=== PATIENT | male | born 1930 | race Caucasian/White ===

== ENCOUNTER 2017-01-27 09:59 | Inpatient (IN) ==
--- NOTE | 2017-01-27 10:06 | Emergency Department Note ---
Disposition Clinical Impression: Hypoxia, NSTEMI (non-ST elevated myocardial infarction), Pleural effusion CHF (congestive heart failure) Qualifiers: Congestive heart failure type: unspecified congestive heart failure type Congestive heart failure chronicity: acute Qualified Code(s): I50.9 - Heart failure, unspecified Disposition: Admitted As Inpatient Condition: Fair SOB HPI - General Chief Complaint: ED Shortness of Breath/Dyspnea Stated Complaint: RODNEY, HTN Time Seen by Provider: 01/27/17 10:03 Source: patient Mode of arrival: ambulatory Limitations: no limitations Nursing Notes Reviewed: Yes Vital Signs Reviewed: Yes - History of Present Illness Patient presents for evaluation shortness of breath. Onset one week ago. Progressively worsening nature. Worse with walking. Worse lying down. Patient has some associated chest pain he describes is in the center of his chest. Nothing makes it better or worse. No radiation of pain. Patient states he has seen his kidney specialist and they told him he had fluid on his lungs. Patient does have rales bilaterally along with associated +1 pitting edema to the knee. Patient has a history of bypass greater than 8 years ago with no recent follow-up or evaluation of cardiac status. Aortic valve replacement was performed several years ago and at this time a pacemaker was placed prior to surgery. - Related Data Home Medications Medication Instructions Recorded Confirmed Aspirin 81 mg PO DAILY 11/04/14 01/27/17 Atorvastatin [Lipitor] 40 mg PO HS 11/04/14 01/27/17 Cholecalciferol (Vitamin D3) 1,000 unit PO DAILY 11/04/14 01/27/17 [Vitamin D3] Isosorbide MONOnitrate (24 HR) 30 mg PO DAILY 11/04/14 01/27/17 [Imdur] Metoprolol XL (24 HR) Succ [Toprol 100 mg PO DAILY 11/04/14 01/27/17 XL] NIFEdipine [Nifedical Xl] 60 mg PO DAILY 11/04/14 01/27/17 Lactobacillus Acidophilus 1 each PO DAILY 10/24/15 01/27/17 [Acidophilus] Furosemide [Lasix] 20 mg PO DAILY 01/27/17 01/27/17 Lisinopril [Zestril] 10 mg PO DAILY 01/27/17 01/27/17 Sertraline [Zoloft] 25 mg PO DAILY 01/27/17 01/27/17 Tamsulosin [Flomax] 0.4 mg PO DAILY 01/27/17 01/27/17 Warfarin [Coumadin] 1.25 mg PO MOTUWEFRSA 01/27/17 01/27/17 Warfarin [Coumadin] 2.5 mg PO SUTH 01/27/17 01/27/17 traZODone [TraZODone] 50 mg PO HS 01/27/17 01/27/17 Previous Rx's Medication Instructions Recorded Acetaminophen [Tylenol] 500 mg PO Q6HR PRN #10 tablet 06/14/16 Allergies Allergy/AdvReac Type Severity Reaction Status Date / Time No Known Allergies Allergy Unverified 10/04/16 10:10 Review of Systems: Constitutional: No fever Vision: No blurred vision ENT: No rhinorrhea Respiratory: Shortness of breath without productive cough Cardiac: Chest pain Allergic: No allergies : No blood in urine GI: No blood in stool Hematologic: No bruising Dermatologic: No skin rash Musculoskeletal: No pain in the extremities Neuro: No numbness of the extremities Past Medical History - Past Medical History Medical history: Reports: non-contributory Surgical history: Reports: cholecystectomy Psychiatric history: Reports: no psych history - Social History Smoking Status: Never smoker Smokeless Tobacco Status: No Alcohol use: Reports: none Drug use: Reports: none Physical Exam General: Well appearing, nontoxic, no acute distress Head: Normocephalic Atraumatic Eyes: PERRL, EOMI ENT: Airway patent, no stridor Neck: supple, no meningismus Chest: Rales bilaterally worse the bases Cardiac: Regular rhythm, no murmurs, rubs or gallops Abdomen: soft, nontender, nondistended; no guarding, rebound, or tenderness to percussion Musculoskeletal: Calves symmetric, +1 pitting edema from ankles to the knee bilaterally. nontender, no palpable cord Skin: No rash, normal skin tone Neuro: Alert and Oriented to person, place, and time; No focal deficit, CN 2-12 symmetric and intact Course - Reevaluation(s) Reevaluation #1: Troponin of 0.16 and BNP elevated greater than 2000. Patient's chest pain improved from 7-3 with nitroglycerin. Patient will be placed on nitroglycerin drip as well as a heparin drip. He had a echo scheduled for later today at 7 PM. This can be preformed from the floor or other arrangments may be made. Reevaluation #2: Discussed over the phone with the daughter who is in [place]. She has been updated of his status. - Consultations Consultation #1: Discussed with hospitalist, Dr. Rogers, patient accepted for admission. Vital Signs Temperature 98 F 01/27/17 10:02 Pulse Rate 94 01/27/17 10:02 Respiratory Rate 18 01/27/17 10:02 Blood Pressure 191/131 01/27/17 10:02 O2 Sat by Pulse Oximetry 92 01/27/17 10:02 Temperature 97.4 F L 01/27/17 19:17 Pulse Rate 98 01/27/17 19:17 Respiratory Rate 17 01/27/17 19:17 Blood Pressure 148/80 01/27/17 19:17 O2 Sat by Pulse Oximetry 94 01/27/17 19:17 Oxygen Delivery Oxygen Delivery Nasal Cannula Shortness of Breath/Dyspnea - Medical Records Medical records reviewed: Yes I reviewed the patient's medical records. - Lab Data Lab results reviewed: Yes I reviewed the patient's lab results. Result diagrams: 01/27/17 10:20 01/27/17 10:20 Lab Results 01/27/17 01/27/17 01/27/17 Range/Units 10:20 10:20 10:20 WBC 7.9 (4.3-11.1) K/mcL RBC 4.40 (4.19-5.50) M/mcL Hgb 12.5 L (12.9-16.9) g/dL Hct 38.9 (37.5-50.1) % MCV 88.4 (83.0-100.0) fL MCH 28.4 (28.0-33.3) pg MCHC 32.1 (31.6-35.5) g/dL RDW 15.0 H (11.5-14.5) % Plt Count 241 (140-400) K/mcL MPV 10.0 (9.4-12.4) fL Immature Gran % 0.3 (0-4) % Seg Neutrophils % 82.8 % Lymphocytes % 10.5 % Monocytes % 5.6 % Eosinophils % 0.5 % Basophils % 0.3 % Neutrophils # 6.5 (1.6-8.9) K/mcL Lymphocytes # 0.8 (0.6-4.6) K/mcL Monocytes # 0.4 (0.0-1.3) K/mcL Eosinophils # 0.0 (0.0-0.6) K/mcL Basophils # 0.0 (0.0-0.2) K/mcL PT 29.0 H (9.4-12.1) Seconds INR 2.6 APTT 37.2 H (26.0-36.0) Seconds Sodium 144 (136-145) mEq/L Potassium 3.2 L (3.5-5.1) mEq/L Chloride 106 (98-107) mEq/L Carbon Dioxide 26 (23-29) mEq/L BUN 24 H (8-23) mg/dL Creatinine 1.50 H (0.70-1.30) mg/dL Est GFR ( Amer) 54 L (> 60) Est GFR (Non-Af Amer) 44 L (> 60) BUN/Creatinine Ratio 16 (6-26) Glucose 101 (70-105) mg/dL Calculated Osmolality 302 H (280-300) Calcium 9.4 (8.6-10.3) mg/dL Troponin I (< 0.04) ng/mL B-Natriuretic Peptide (Less than 100) pg/mL 01/27/17 01/27/17 Range/Units 10:20 10:20 WBC (4.3-11.1) K/mcL RBC (4.19-5.50) M/mcL Hgb (12.9-16.9) g/dL Hct (37.5-50.1) % MCV (83.0-100.0) fL MCH (28.0-33.3) pg MCHC (31.6-35.5) g/dL RDW (11.5-14.5) % Plt Count (140-400) K/mcL MPV (9.4-12.4) fL Immature Gran % (0-4) % Seg Neutrophils % % Lymphocytes % % Monocytes % % Eosinophils % % Basophils % % Neutrophils # (1.6-8.9) K/mcL Lymphocytes # (0.6-4.6) K/mcL Monocytes # (0.0-1.3) K/mcL Eosinophils # (0.0-0.6) K/mcL Basophils # (0.0-0.2) K/mcL PT (9.4-12.1) Seconds INR APTT (26.0-36.0) Seconds Sodium (136-145) mEq/L Potassium (3.5-5.1) mEq/L Chloride (98-107) mEq/L Carbon Dioxide (23-29) mEq/L BUN (8-23) mg/dL Creatinine (0.70-1.30) mg/dL Est GFR ( Amer) (> 60) Est GFR (Non-Af Amer) (> 60) BUN/Creatinine Ratio (6-26) Glucose (70-105) mg/dL Calculated Osmolality (280-300) Calcium (8.6-10.3) mg/dL Troponin I 0.16 H* (< 0.04) ng/mL B-Natriuretic Peptide 2796 H (Less than 100) pg/mL - Radiology Data Radiology results reviewed: Yes I reviewed the patient's radiology results. - EKG Data EKG attestation: Yes I reviewed and interpreted this EKG. EKG results narrative: EKG shows ventricularly paced rhythm ventricular rate of 97. QRS 184. QTC 5- 3. Elevations in the anterior leads are 1-2 mm in V2 V3 and V4, consistent with Sgarbossa criteria. Attestation Statement - Attestation Attestation: I examined this patient and my medical decision-making was reviewed with the Resident Physician. I agree with the documented findings, disposition and treatment plan as described except to the extent set forth below. Findings consistent with dyspnea. Suspect underlying heart failure. Will start nitroglycerin infusion. Plan admit for further evaluation. I spent greater than 35 minutes of critical care time resuscitating this acutely ill patient suffering from dyspnea requiring nitroglycerin infusion. This was excluding billable procedure.
[2017-01-27] MEDS: Nitroglycerin 0.4 MG TAB.SUBL SL PRN ×3 (10:26→10:36)
[2017-01-27 10:37] LABS: Basophils % 0.3 %; Eosinophils % 0.5 %; Hematocrit 38.9 % (37.5-50.1); Hemoglobin 12.5 g/dL (12.9-16.9); Immature Granulocytes % 0.3 % (0-4); Lymphocytes # 0.8 K/mcL (0.6-4.6); Lymphocytes % 10.5 %; Mean Corpuscular HGB Conc 32.1 g/dL (31.6-35.5); Mean Corpuscular Hemoglobin 28.4 pg (28.0-33.3); Mean Corpuscular Volume 88.4 fL (83.0-100.0); Monocytes # 0.4 K/mcL (0.0-1.3); Monocytes % 5.6 %; Neutrophils # 6.5 K/mcL (1.6-8.9); Platelet Count 241 K/mcL (140-400); Segmented Neutrophils % 82.8 %
[2017-01-27 10:44] LABS: INR 2.6
[2017-01-27 10:52] LABS: Calcium 9.4 mg/dL (8.6-10.3); Potassium 3.2 mEq/L (3.5-5.1)
[2017-01-27] MEDS ORDERED: Aspirin 81 MG TAB.CHEW PO STA (11:01)
[2017-01-27] MEDS ORDERED: *HR* Heparin 5,000 UNIT/ML VIAL IVP ONE (11:04)
[2017-01-27] MEDS ORDERED: *HR* Heparin 5,000 UNIT/ML VIAL IVP PRN ×2 (11:04)
[2017-01-27] MEDS ORDERED: Heparin 25,000 UNIT/500 ML D5W 25,000 UNIT/500 ML BAG IVC SCH (11:15)
[2017-01-27] MEDS ORDERED: Nitroglycerin 25 MG/250 ML INFUS..BTL IVC SCH (11:15)
[2017-01-27 11:21] LABS: Activated Partial Thrombo Time 37.2 Seconds (26.0-36.0)
[2017-01-27] MEDS ORDERED: Naloxone 0.4 MG/ML INJ IVP PRN (15:09)
[2017-01-27] MEDS ORDERED: *HR* Morphine 2 MG/ML SYRINGE IVP PRN (15:09)
[2017-01-27] MEDS ORDERED: *HR* HYDROcodone/Acet 5/325 mg TABLET PO PRN (15:09)
[2017-01-27] MEDS ORDERED: Ipratropium/Albuterol Neb 3 ML IH PRN (15:27)
--- NOTE | 2017-01-27 15:31 | Internal Med History&Physical ---
<NylacuatetreeJavier hardy - Last Filed: 01/27/17 18:50> Date of Encounter: 01/27/17 Time of Encounter: 14:00 Assessment and Plan (1) Chest pain Current visit: Yes Status: Acute Acute chest pain that pt. describes as intermittent for the past week and accompanied by SOB/dyspnea. Pt. describes pain as centralized in chest w/o radiation or alleviating/aggravating factors. Pt. has hx of triple bypass and pacemaker/AICD placement at [place]. Initial troponin 0.16. Will trend x2. Echocardiogram ordered. Continuous cardiac telemetry. Aspirin therapy. Lipitor 80 mg now. Nitroglycerin PRN. Pt. placed on heparin drip in ED which has been discontinued d/t pts. report of melanotic stool yesterday. Continue Coumadin w/ pharmacy dosing. Pt. discussed w/Dr. Rogers who agrees w/plan of care. Pt. is at high risk for cardiac event based on troponin of 0.16, chest pain, and current acute exacerbation of CHF as well as risk factors. Inpatient. Qualifiers: Chest pain type: other chest pain Qualified Code(s): R07.89 - Other chest pain; R07.8 - Other chest pain (2) Acute exacerbation of CHF (congestive heart failure) Current visit: Yes Status: Acute Acute exacerbation of CHF w/BNP of 2796 on admission. Pt. reports intermittent pedal edema, SOB/dyspnea, and orthopnea. Was recently placed on lasix by PCP. Will hold PO lasix and administer IVP lasix 40 mg BID. Echocardiogram ordered. Continuous cardiac telemetry. Supplemental O2 w/titration and SpO2 monitoring PRN. DuoNebs Q6 PRN. Monitor I&O and daily weight. Cardiac diet w/1.2L daily fluid restriction. Qualifiers: Congestive heart failure type: unspecified congestive heart failure type Qualified Code(s): I50.9 - Heart failure, unspecified (3) Abnormal hemoglobin (Hgb) Current visit: Yes Status: Acute Acutely abnormal Hgb of 12.5 on admission today. Pt. reports melanotic stool once yesterday. Fecal hemoccult ordered. Monitor H/H in a.m. labs. (4) Stage III chronic kidney disease Current visit: Yes Status: Chronic Hx of CKD, stage 3 with current GFR of 44 and creatinine of 1.50. Will use IV fluids judiciously, especially w/current acute exacerbation of CHF, and avoid nephrotoxins. (5) HTN (hypertension) Current visit: Yes Status: Chronic Hx of chronic HTN. Monitor pt. and VS. Continue patient's Imdur, lisinopril, metoprolol, and nifedipine. Qualifiers: Hypertension type: essential hypertension Qualified Code(s): I10 - Essential (primary) hypertension (6) HLD (hyperlipidemia) Current visit: Yes Status: Chronic Hx of chronic HLD. Lipid panel in a.m. labs. Continue pts. Lipitor. Qualifiers: Hyperlipidemia type: pure hypercholesterolemia Qualified Code(s): E78.00 - Pure hypercholesterolemia, unspecified; E78.0 - Pure hypercholesterolemia (7) Pacemaker Current visit: Yes Status: Chronic Hx of pacemaker/AICD placement. Stable. (8) Depression Current visit: Yes Status: Chronic Hx of chronic depression. Continue pts. Zoloft. Qualifiers: Depression Type: unspecified Qualified Code(s): F32.9 - Major depressive disorder, single episode, unspecified (9) CAD (coronary artery disease) Current visit: Yes Status: Chronic Hx of chronic CAD with triple bypass and pacemaker/AICD placement. Continuous cardiac telemetry. Echocardiogram ordered. Will continue patient's Imdur, lisinopril, metoprolol, nifedipine, Lipitor, aspirin therapy, and Coumadin with pharmacy dosing. Qualifiers: Coronary Disease-Associated Artery/Lesion type: [place] artery [place] vs. transplanted heart: [place] heart Associated angina: angina presence unspecified Qualified Code(s): I25.10 - Atherosclerotic heart disease of [place] coronary artery without angina pectoris (10) DVT prophylaxis Current visit: Yes Status: Acute Coumadin w/pharmacy dosing for DVT prophylaxis. Monitor pt. for signs of bleeding. Pt. reports black stool once yesterday. Fecal hemoccult ordered. Internal Medicine - H&P: HPI Chief complaint: Chest pain/SOB Admitted From: Emergency Dept Plans for Post Hospital Care: Home History of present illness: Mr. tS is a 86 year old male with medical hx of HTN, HLD, depression, CHF, and hx of pacemaker on Coumadin presents from the ED with chief complaint of chest pain and shortness of breath that began 1 week ago accompanied by nausea and diarrhea. Patient reports black stool yesterday. Patient describes chest pain as centralized and chest, without alleviating or aggravating factors, and without radiation. He reports Dr. Marsh informed him that he has fluid on his lungs and he reports intermittent pedal edema accompanied by shortness of breath. Patient reports some disequilibrium w/ambulation but denies recent illness, fever, chills, vomiting, headache, changes in vision, chest pain, palpitations, abdominal pain, constipation, numbness, tingling, dizziness, lightheadedness, pre-syncope, or syncope. Past Med Surg Social Fam HX - Past Medical History Source: patient, old records reviewed Medical history: hyperlipidemia, hypertension, other (BPH) Psychiatric history: depression - Past Surgical History Surgical History: cholecystectomy, coronary bypass (CABG) (Triple), pacemaker/ AICD - Social History Smoking Status: Never smoker Smokeless Tobacco Status: No Alcohol use: none Drug use: none Current living situation: Assisted Living Activity Level: Independent ambulation Recent Out of Country Travel Within the Last 8 Weeks: No Exposure or Possible Exposure to Illness During Travel: No - Family History Mother Adopted: No Race: Family Member Ethnicity: Non- Living Status: Age at : 72 Cause of : Lung cancer Hx Family Cardiac Disorders: Yes Hx Family Cancer: Yes (Lung) Hx Family Endocrine Disorder: Yes Father Race: Family Member Ethnicity: Non- Living Status: Age at : 38 Cause of : Blood clot following surgery Hx Family Cardiac Disorders: Yes (DVT) Sister Race: Family Member Ethnicity: Non- Living Status: Still Living Hx Family Cardiac Disorders: Yes (Stroke) Internal Medicine - H&P: Meds Aspirin 81 mg PO DAILY 11/04/14 [History] Atorvastatin [Lipitor] 40 mg PO HS 11/04/14 [History] Cholecalciferol (Vitamin D3) [Vitamin D3] 1,000 unit PO DAILY 11/04/14 [History] Isosorbide MONOnitrate (24 HR) [Imdur] 30 mg PO DAILY 11/04/14 [History] Metoprolol XL (24 HR) Succ [Toprol XL] 100 mg PO DAILY 11/04/14 [History] NIFEdipine [Nifedical Xl] 60 mg PO DAILY 11/04/14 [History] Lactobacillus Acidophilus [Acidophilus] 1 each PO DAILY 10/24/15 [History] Acetaminophen [Tylenol] 500 mg PO Q6HR PRN #10 tablet 06/14/16 [Rx] Furosemide [Lasix] 20 mg PO DAILY 01/27/17 [History] Lisinopril [Zestril] 10 mg PO DAILY 01/27/17 [History] Sertraline [Zoloft] 25 mg PO DAILY 01/27/17 [History] Tamsulosin [Flomax] 0.4 mg PO DAILY 01/27/17 [History] Warfarin [Coumadin] 1.25 mg PO MOTUWEFRSA 01/27/17 [History] Warfarin [Coumadin] 2.5 mg PO SUTH 01/27/17 [History] traZODone [TraZODone] 50 mg PO HS 01/27/17 [History] 3 Allergy/AdvReac Type Severity Reaction Status Date / Time No Known Allergies Allergy Unverified 10/04/16 10:10 All Systems PM: A 10-system review of systems was performed and is negative for pertinent findings except as documented above in the HPI. - Constitutional Constitutional: no chills, no fever(s), no night sweats - EENT Eyes: no change in vision, no discharge, no pain, no photophobia Ears: no ear discharge, no ear pain, no tinnitus Nose, mouth and throat: no dysphagia, no nasal discharge, no neck pain, no sore throat - Breasts Breasts: as per HPI - Cardiovascular Cardiovascular ROS IM: as per HPI, chest pain, dyspnea, dyspnea on exertion, edema, orthopnea, no diaphoresis, no lightheadedness, no palpitations, no syncope - Respiratory Respiratory: as per HPI, dyspnea, dyspnea on exertion - Gastrointestinal Gastrointestinal: as per HPI, diarrhea, nausea, no abdominal pain, no hematemesis, no hematochezia, no melena, no vomiting - Genitourinary Genitourinary ROS male: as per HPI, difficulty urinating - Musculoskeletal Musculoskeletal ROS IM: no numbness, no tingling - Integumentary Integumentary IM: no rash, no unusual bruising - Neurological Neurological ROS: as per HPI, disequilibrium, no confusion, no convulsions, no focal weakness, no numbness, no tingling, no tremor(s) - Psychiatric Psychiatric: as per HPI - Endocrine Endocrine IM: as per HPI - Hematologic/Lymphatic Hematologic/Lymphatic: no easy bruising - Allergic/Immunologic Allergic/Immunologic: as per HPI - Constitutional Vitals: Temp Pulse Resp BP Pulse Ox 97.6 F 85 16 188/68 96 01/27/17 14:43 01/27/17 14:43 01/27/17 14:43 01/27/17 14:43 01/27/17 14:43 General appearance: Present: cooperative, A&O X 3, pleasant, no acute distress, answers questions appropriately - Head Head exam: Present: atraumatic, normal inspection, normocephalic - Eye Eye exam: Present: PERRL, conjuntiva pink, sclera anicteric Pupils: Present: PERRL - ENT ENT exam: Present: normal exam, normal external ear exam - Neck Neck exam general surgery: Present: normal inspection, supple, trachea midline. Absent: lymphadenopathy - Respiratory Respiratory exam: Present: accessory muscle use, decreased breath sounds - Cardiovascular Cardiovascular exam: Present: RRR, +S1, +S2. Absent: diastolic murmur, gallop, rubs, systolic murmur - GI/Abdominal GI/Abdominal exam: Present: normal bowel sounds, soft, no peritoneal signs. Absent: distended, tenderness - Rectal Rectal exam: Present: deferred - Additional comments: exam deferred. - Extremities Exam Extremities exam: Present: pedal edema (1+ pitting bilaterally in LEs), warm, radial pulses palpable and symmetrical. Absent: calf tenderness, cyanotic - Back Exam Back exam: Present: normal inspection - Neurological Exam Neurological exam: Present: alert, CN II-XII intact, oriented X3, no focal deficits. Absent: pronater drift, facial droop, speech deficit - Psychiatric Psychiatric exam: Present: normal affect, normal mood - Skin Skin exam: Present: dry, intact Internal Med - H&P Results - Labs CBC & Chem 7: 01/27/17 10:20 01/27/17 10:20 - EKG Data Prior EKG available for review: no EKG comments: 01/27/17 15:49 EKG dated 01/27/17 shows ventricularly paced rhythm with ventricular rate of 97 , QRS was 84, QTC 53, elevations in the anterior leads are 2 mm in V2, V3, and V4 consistent w/Sgarbossa criteria. - Diagnostic Studies Chest x-ray Additional comments: Impressions Chest X-Ray 01/27/17 10:03 IMPRESSION: Interval worsening in small right pleural effusion. Unchanged small to moderate left pleural effusion. Persistent bibasilar pulmonary opacities. Continued radiographic follow-up as indicated. Persistently enlarged cardiomediastinal silhouette. D/ / Emerson Kenyon MD / Emerson Kenyon MD Interpreting Provider: Emerson Kenyon MD <David Rogers P - Last Filed: 01/28/17 13:04> Date of Encounter: 01/28/17 Assessment and Plan (1) Acute exacerbation of CHF (congestive heart failure) Current visit: Yes Status: Acute Qualifiers: Congestive heart failure type: unspecified congestive heart failure type Qualified Code(s): I50.9 - Heart failure, unspecified (2) HTN (hypertension) Current visit: Yes Status: Chronic Qualifiers: Hypertension type: essential hypertension Qualified Code(s): I10 - Essential (primary) hypertension (3) Stage III chronic kidney disease Current visit: Yes Status: Chronic (4) Pacemaker Current visit: Yes Status: Chronic (5) DVT prophylaxis Current visit: Yes Status: Acute Internal Medicine - H&P: HPI History of present illness: Mr. St is a 86 year old male All Systems PM: A 10-system review of systems was performed and is negative for pertinent findings except as documented above in the HPI. - Constitutional Vitals: Temp Pulse Resp BP Pulse Ox 97.9 F 67 18 164/83 92 01/28/17 11:20 01/28/17 11:20 01/28/17 11:20 01/28/17 11:20 01/28/17 11:20 Internal Med - H&P Results - Labs CBC & Chem 7: 01/28/17 03:54 01/28/17 03:54 Labs: Short CBC 01/28/17 Range/Units 03:54 WBC 7.6 (4.3-11.1) K/mcL Hgb 11.3 L (12.9-16.9) g/dL Hct 35.4 L (37.5-50.1) % Plt Count 240 (140-400) K/mcL Neutrophils # 6.2 (1.6-8.9) K/mcL BMP 01/28/17 03:54 Sodium 143 Potassium 3.0 L Chloride 107 Carbon Dioxide 27 BUN 26 H Creatinine 1.47 H Glucose 100 Calcium 8.7 Cardiac Enzymes 01/27/17 01/27/17 Range/Units 16:55 22:23 Troponin I 0.15 H* 0.16 H* (< 0.04) ng/mL Liver Function 01/28/17 Range/Units 03:54 Total Bilirubin 1.1 H (0.3-1.0) mg/dL AST 21 (13-39) Units/L ALT 17 (7-52) Units/L Alkaline Phosphatase 98 (34-104) Units/L Albumin 3.4 L (3.5-5.7) g/dL - Attending Attestation I examined this patient and my medical decision-making was reviewed with the Resident Physician/BULK CLERK. I agree with the documented findings, disposition and treatment plan as described except to the extent set forth below. I examined this patient independently I agree with the management and plan as described by nurse practitioner Javier.
[2017-01-27] MEDS ORDERED: Warfarin perPT PO PRN (18:00)
[2017-01-27] MEDS ORDERED: *HR* Warfarin 2.5 MG TABLET PO SCH (18:00)
--- NOTE | 2017-01-27 18:38 | Electrocardiograph Report ---
[place] [id number] Test Date: 2017-01-27 Pat Name: Javier St Department: 103 Room: 2A Gender: M [employer] Rep[employer]: CLARK : 1930 Requested By: Aleksey Stevens Order Number: [id number] Reading MD: Curtis Leonard DO Measurements Intervals [place] Rate: 97 P: DE: 0 QRS: -70 QRSD: 184 T: 105 QT: 469 QTc: 523 Interpretive Statements ELECTRONIC VENTRICULAR PACEMAKER ABNORMAL RHYTHM ECG Electronically Signed On 01-27-2017 18:37:01 EST by Curtis Leonard DO
[2017-01-27] MEDS: traZODone 50 MG TABLET PO SCH (20:56)
[2017-01-27] MEDS: Furosemide 40 MG/4 ML VIAL IVP SCH (20:56)
[2017-01-28 04:56] LABS: Albumin 3.4 g/dL (3.5-5.7); Albumin/Globulin Ratio 1.3 (1.1-2.2); Bilirubin,Total 1.1 mg/dL (0.3-1.0); Calcium 8.7 mg/dL (8.6-10.3); Chol/HDL Ratio 2.9 (0-4.9); Globulin 2.7 g/dL (2.4-3.5); Magnesium 1.6 mg/dL (1.6-2.6); Total Protein 6.1 g/dL (6.4-8.9)
[2017-01-28 05:00] LABS: INR 2.9; Prothrombin Time 32.5 Seconds (9.4-12.1)
[2017-01-28 05:02] LABS: Basophils % 0.4 %; Eosinophils # 0.1 K/mcL (0.0-0.6); Eosinophils % 0.9 %; Hematocrit 35.4 % (37.5-50.1); Hemoglobin 11.3 g/dL (12.9-16.9); Immature Granulocytes % 0.3 % (0-4); Lymphocytes # 0.8 K/mcL (0.6-4.6); Lymphocytes % 10.1 %; Mean Corpuscular HGB Conc 31.9 g/dL (31.6-35.5); Mean Corpuscular Hemoglobin 28.3 pg (28.0-33.3); Mean Corpuscular Volume 88.5 fL (83.0-100.0); Mean Platelet Volume 10.3 fL (9.4-12.4); Monocytes # 0.5 K/mcL (0.0-1.3); Monocytes % 6.8 %; Neutrophils # 6.2 K/mcL (1.6-8.9); Platelet Count 240 K/mcL (140-400); Red Cell Distribution Width 14.8 % (11.5-14.5); Segmented Neutrophils % 81.5 %
[2017-01-28 05:03] LABS: Activated Partial Thrombo Time 34.6 Seconds (26.0-36.0)
[2017-01-28] MEDS: Ondansetron 4 MG/2 ML VIAL IVP PRN ×2 (08:11→14:33)
[2017-01-28] MEDS: Metoprolol XL (24 HR) Succ 50 MG TAB.ER.24H PO SCH (08:12)
[2017-01-28] MEDS: NIFEdipine XL (24 HR) 60 MG TAB.ER.24 PO SCH (08:12)
[2017-01-28] MEDS: Cholecalciferol (D-3) 1,000 UNIT TABLET PO SCH (08:12)
[2017-01-28] MEDS: Furosemide 40 MG/4 ML VIAL IVP SCH ×3 (08:12→16:34)
[2017-01-28] MEDS: Lactobacillus 1 EACH CAP.SPRINK PO SCH (08:12)
[2017-01-28] MEDS: Aspirin Enteric Coated 81 MG Tablet PO SCH (08:12)
[2017-01-28] MEDS: Isosorbide MONOnitrate (24 HR) 30 MG TAB.ER.24H PO SCH (08:12)
--- NOTE | 2017-01-28 09:51 | Cardiothoracic Consult Note ---
Date of Encounter: 01/28/17 Time of Encounter: 09:45 - History of Present Illness History of present illness: Mr. St is a 86 year old male with a past medical history of hypertension, hyperlipidemia, CHF, pacemaker on Coumadin, CABG who presented to the hospital with a chief complaint of chest pain and shortness of breath of one week's duration. Patient also had accompanying nausea and diarrhea. He reported black stool. His chest pain was described as centralized without radiation, no aggravating or relieving factors. Patient reported that his food order delivery runner Dr. Marsh told him that he has fluid in his lungs. Patient has pedal edema on presentation. Patient's shortness of breath is exacerbated by walking and lying down. Patient had rales bilaterally on physical exam. Patient has an extensive cardiac history with aortic valve replacement, pacemaker placement, CABG, and catheterization. Patient's blood pressure was elevated on presentation at 191/131. His pulse was 94 bpm. Chest x-ray was performed and demonstrated interval worsening small right-sided pleural effusion. Unchanged small to moderate left-sided pleural effusion. Persistent bibasilar pulmonary bases. Persistently enlarged cardiomediastinal silhouette. Pulmonary for examination, patient was found to have an elevated troponin 0.16. Troponins were trended and are as follows: 0.16 , 0.15, 0.16. EKG demonstrated the presence of an electronic ventricular pacemaker. Patient was started on heparin and nitroglycerin drip. Echo has been ordered. Past Med Surg Social Fam HX - Past Medical History Medical history: non-contributory Psychiatric history: no psych history - Past Surgical History Surgical History: cholecystectomy - Social History Smoking Status: Never smoker Smokeless Tobacco Status: No Alcohol use: none Drug use: none - Family History Father Race: Family Member Ethnicity: Non- Living Status: Age at : 38 Cause of : Blood clot following surgery Hx Family Cardiac Disorders: Yes (DVT) Sister Race: Family Member Ethnicity: Non- Living Status: Still Living Hx Family Cardiac Disorders: Yes (Stroke) Mother Adopted: No Race: Family Member Ethnicity: Non- Living Status: Age at : 72 Cause of : Lung cancer Hx Family Cardiac Disorders: Yes Hx Family Respiratory Disorders: No Hx Family Cancer: Yes (Lung) Hx Family GI Disorders: No Hx Family Endocrine Disorder: Yes Hx Family Neuromuscular Disorders: No Hx Family Neurologic Disorders: No Hx Family HEENT Disorders: No Hx Family Autoimmune Disorders: No Medications and Allergies Aspirin 81 mg PO DAILY 11/04/14 [History] Atorvastatin [Lipitor] 40 mg PO HS 11/04/14 [History] Cholecalciferol (Vitamin D3) [Vitamin D3] 1,000 unit PO DAILY 11/04/14 [History] Isosorbide MONOnitrate (24 HR) [Imdur] 30 mg PO DAILY 11/04/14 [History] Metoprolol XL (24 HR) Succ [Toprol XL] 100 mg PO DAILY 11/04/14 [History] NIFEdipine [Nifedical Xl] 60 mg PO DAILY 11/04/14 [History] Lactobacillus Acidophilus [Acidophilus] 1 each PO DAILY 10/24/15 [History] Acetaminophen [Tylenol] 500 mg PO Q6HR PRN #10 tablet 06/14/16 [Rx] Furosemide [Lasix] 20 mg PO DAILY 01/27/17 [History] Lisinopril [Zestril] 10 mg PO DAILY 01/27/17 [History] Sertraline [Zoloft] 25 mg PO DAILY 01/27/17 [History] Tamsulosin [Flomax] 0.4 mg PO DAILY 01/27/17 [History] Warfarin [Coumadin] 1.25 mg PO MOTUWEFRSA 01/27/17 [History] Warfarin [Coumadin] 2.5 mg PO SUTH 01/27/17 [History] traZODone [TraZODone] 50 mg PO HS 01/27/17 [History] 3 Allergy/AdvReac Type Severity Reaction Status Date / Time No Known Allergies Allergy Unverified 10/04/16 10:10 All Systems Review: A 10-system review of systems was performed and is negative for pertinent findings except as documented above in the HPI. Physical Examination Vital Signs, Last 4 Hours Temp Pulse Resp BP Pulse Ox 01/28/17 07:36 97.8 F 74 18 164/77 94 Results 01/28/17 03:54 01/28/17 03:54 Lab Results, Last 24 hours 01/27/17 01/27/17 01/28/17 16:55 22:23 03:54 WBC 7.6 Hgb 11.3 L Hct 35.4 L Plt Count 240 INR APTT Sodium Potassium Chloride Carbon Dioxide BUN Creatinine Glucose Calcium Magnesium Total Bilirubin AST ALT Alkaline Phosphatase Troponin I 0.15 H* 0.16 H* 01/28/17 01/28/17 03:54 03:54 WBC Hgb Hct Plt Count INR 2.9 APTT 34.6 Sodium 143 Potassium 3.0 L Chloride 107 Carbon Dioxide 27 BUN 26 H Creatinine 1.47 H Glucose 100 Calcium 8.7 Magnesium 1.6 Total Bilirubin 1.1 H AST 21 ALT 17 Alkaline Phosphatase 98 Troponin I Consult Discharge Plan - Plan Referrals: Dagoberto Blunt MD [Primary Care Provider] -
--- NOTE | 2017-01-28 09:57 | Cardiology Consult Note ---
<Ab Lindsey - Last Filed: 01/28/17 13:22> Date of Encounter: 01/28/17 Time of Encounter: 09:45 Assessment and Plan (1) Acute exacerbation of CHF (congestive heart failure) Current Visit: Yes Status: Acute Patient has known history of CHF. Acute exacerbation of CHF w/BNP of 2796 on admission. Pt. reports intermittent pedal edema, SOB/dyspnea, and orthopnea. Was recently placed on lasix by PCP. CXR demonstrated the presence of bilateral effusions. Last ECHO performed on 10/24/14 the following: -LVEF 65%. -Moderate concentric LVH. -Moderate L ventricular diastolic dysfunction. -Moderate-severely dilated LA and RA -Severe . Peak velocity 4.3 m/s, mean gradient 45 mmHg, HELEN 0.93 cm2. -Mild AR and MR Repeat ECHO has been ordered. Plan: -IV Lasix 40 mg IV BID -Continuous cardiac telemetry -Supplemental O2 -DuoNeb every 6 when necessary -Monitor I&O/daily weight/Cardiac diet with 1.2 L daily fluid restriction. Qualifiers: Congestive heart failure type: unspecified congestive heart failure type Qualified Code(s): I50.9 - Heart failure, unspecified (2) Chest pain Current Visit: Yes Status: Acute Patient initially presented to the hospital with chest pain. Centralized, accompanied by shortness of breath and dyspnea, no radiation, no alleviating factors. hx of triple bypass and pacemaker/AICD placement at [place]. Plan: -Continuous cardiac telemetry. -Continue medical management. -Nitroglycerin 0.4 mg SL Q5 minutes PRN -Possible cardiac catheterization today; Patient's prior imaging/studies will be reviewed by industrial court magistrate Qualifiers: Chest pain type: other chest pain Qualified Code(s): R07.89 - Other chest pain; R07.8 - Other chest pain (3) Elevated troponin Current Visit: Yes Status: Acute Patient was found to have an elevated troponin level presentation. Troponins have been as follows: 0.16, 0.15, 0.16. (4) CAD (coronary artery disease) Current Visit: Yes Status: Chronic Patient has known history of coronary artery disease. Hx of chronic CAD with triple bypass and pacemaker/AICD placement. Continuous cardiac telemetry. ECHO ordered. Plan: -ASA 81 mg PO daily -Lipitor 40 mg PO HS -Lisinopril 10 mg PO daily -Metoprolol 100 mg PO daily -Nifedipine XL 24 hours 60 mg PO daily -Coumadin dosed per pharmacy Qualifiers: Coronary Disease-Associated Artery/Lesion type: seminole artery [place] vs. transplanted heart: seminole heart Associated angina: angina presence unspecified Qualified Code(s): I25.10 - Atherosclerotic heart disease of seminole coronary artery without angina pectoris Discussion w patient/family: The assessment and plan as outlined above was discussed with the patient and/or family members who expressed understanding and agreement. All questions were answered. Thank you for involving us in the care of your patient. Please call with any questions. History of Present Illness Consult date: 01/28/17 History of present illness: Mr. St is a 86 year old male with a past medical history of hypertension, hyperlipidemia, CHF, pacemaker on Coumadin, CABG who presented to the hospital with a chief complaint of chest pain and shortness of breath of one week's duration. Patient also had accompanying nausea and diarrhea. He reported black stool. His chest pain was described as centralized without radiation, no aggravating or relieving factors. Patient reported that his manager wind Dr. Marsh told him that he has fluid in his lungs. Patient has pedal edema on presentation. Patient's shortness of breath is exacerbated by walking and lying down. Patient had rales bilaterally on physical exam. Patient has an extensive cardiac history with aortic valve replacement, pacemaker placement, CABG, and catheterization. Patient's blood pressure was elevated on presentation at 191/131. His pulse was 94 bpm. Chest x-ray was performed and demonstrated interval worsening small right-sided pleural effusion. Unchanged small to moderate left-sided pleural effusion. Persistent bibasilar pulmonary bases. Persistently enlarged cardiomediastinal silhouette. Pulmonary for examination, patient was found to have an elevated troponin 0.16. Troponins were trended and are as follows: 0.16 , 0.15, 0.16. EKG demonstrated the presence of an electronic ventricular pacemaker. Patient was started on heparin and nitroglycerin drip. Echo has been ordered. Patient seen and examined at bedside this morning. Reports feeling much better. No complaints at this time. Patient may require catheterization due to elevated troponin at 0.16. Patient' s records will be reviewed by the industrial court magistrate. Past Med Surg Social Fam HX - Past Medical History Medical history: non-contributory Psychiatric history: no psych history - Past Surgical History Surgical History: cholecystectomy - Social History Smoking Status: Never smoker Smokeless Tobacco Status: No Alcohol use: none Drug use: none - Family History Father Race: Family Member Ethnicity: Non- Living Status: Age at : 38 Cause of : Blood clot following surgery Hx Family Cardiac Disorders: Yes (DVT) Sister Race: Family Member Ethnicity: Non- Living Status: Still Living Hx Family Cardiac Disorders: Yes (Stroke) Mother Adopted: No Race: Family Member Ethnicity: Non- Living Status: Age at : 72 Cause of : Lung cancer Hx Family Cardiac Disorders: Yes Hx Family Respiratory Disorders: No Hx Family Cancer: Yes (Lung) Hx Family GI Disorders: No Hx Family Endocrine Disorder: Yes Hx Family Neuromuscular Disorders: No Hx Family Neurologic Disorders: No Hx Family HEENT Disorders: No Hx Family Autoimmune Disorders: No Medications and Allergies Aspirin 81 mg PO DAILY 11/04/14 [History] Atorvastatin [Lipitor] 40 mg PO HS 11/04/14 [History] Cholecalciferol (Vitamin D3) [Vitamin D3] 1,000 unit PO DAILY 11/04/14 [History] Isosorbide MONOnitrate (24 HR) [Imdur] 30 mg PO DAILY 11/04/14 [History] Metoprolol XL (24 HR) Succ [Toprol XL] 100 mg PO DAILY 11/04/14 [History] NIFEdipine [Nifedical Xl] 60 mg PO DAILY 11/04/14 [History] Lactobacillus Acidophilus [Acidophilus] 1 each PO DAILY 10/24/15 [History] Acetaminophen [Tylenol] 500 mg PO Q6HR PRN #10 tablet 06/14/16 [Rx] Furosemide [Lasix] 20 mg PO DAILY 01/27/17 [History] Lisinopril [Zestril] 10 mg PO DAILY 01/27/17 [History] Sertraline [Zoloft] 25 mg PO DAILY 01/27/17 [History] Tamsulosin [Flomax] 0.4 mg PO DAILY 01/27/17 [History] Warfarin [Coumadin] 1.25 mg PO MOTUWEFRSA 01/27/17 [History] Warfarin [Coumadin] 2.5 mg PO SUTH 01/27/17 [History] traZODone [TraZODone] 50 mg PO HS 01/27/17 [History] 3 Allergy/AdvReac Type Severity Reaction Status Date / Time No Known Allergies Allergy Unverified 10/04/16 10:10 All Systems Review: A 10-system review of systems was performed and is negative for pertinent findings except as documented above in the HPI. - Constitutional Constitutional: no fatigue, no fever(s), no frequent falls, no lethargy - Cardiovascular Cardiovascular: no dyspnea at rest, no dyspnea on exertion, no irregular heart rhythm, no radiating jaw, neck or arm pain Physical Examination Vital Signs, Last 4 Hours Temp Pulse Resp BP Pulse Ox 01/28/17 07:36 97.8 F 74 18 164/77 94 General: Conversant, No Apparent Distress HEENT: Atraumatic, Normocephaly, Mucus Membranes Moist Neck: No JVD, Normal carotid pulses Cardiac: Reg Rate and Rhythm, Normal S1 and S2, No Murmur Lungs: Normal Breath Sounds, No Wheeze, Rales, Rhonchi Neuro: Alert and responsive, No focal deficits noted Skin: No rashes noted on visualized skin Musculoskeletal: No Chest Wall Tenderness Results 01/28/17 03:54 01/28/17 03:54 Lab Results 01/27/17 01/27/17 01/28/17 16:55 22:23 03:54 WBC 7.6 Hgb 11.3 L Hct 35.4 L Plt Count 240 INR APTT Sodium Potassium Chloride Carbon Dioxide BUN Creatinine Glucose Calcium Magnesium Total Bilirubin AST ALT Alkaline Phosphatase Troponin I 0.15 H* 0.16 H* 01/28/17 01/28/17 03:54 03:54 WBC Hgb Hct Plt Count INR 2.9 APTT 34.6 Sodium 143 Potassium 3.0 L Chloride 107 Carbon Dioxide 27 BUN 26 H Creatinine 1.47 H Glucose 100 Calcium 8.7 Magnesium 1.6 Total Bilirubin 1.1 H AST 21 ALT 17 Alkaline Phosphatase 98 Troponin I Consult Discharge Plan - Plan Referrals: Dagoberto Blunt MD [Primary Care Provider] - <Isabel Capps - Last Filed: 01/28/17 16:43> Date of Encounter: 01/28/17 - Attending Attestation I examined this patient and my medical decision-making was reviewed with the Resident Physician. I agree with the documented findings, disposition and treatment plan. Mr. St presents to the hospital with the complaint of mid epigastric discomfort, nausea, vomiting and diarrhea for 1 week. He also apparently had melanotic stool and endorses edema. Patient tells me he is been constipated and has not had a stool in several days. Medical history is significant for CAD s/p CABG, s/p TAVR, PPM. Last LHC was in October 2014 in which no intervention was warranted. Upon admission, the troponins were elevated at 0.16 , 0.15, 0.16. LVEF returned low normal to mildly reduced at 45-50%, previously 65%. Patient also reported melanotic stool - need to await further workup to decide upon whether invasive approach is appropriate. Hemoglobin is stable. Agree with IV diuresis, asa, statin, BB, ACEI. Patient is anticoagulated with Coumadin, INR 2.9 - will need to be held if an invasive approach is performed. Assessment and Plan Discussion w patient/family: The assessment and plan as outlined above was discussed with the patient and/or family members who expressed understanding and agreement. All questions were answered. Thank you for involving us in the care of your patient. Please call with any questions. History of Present Illness History of present illness: Mr. St is a 86 year old male All Systems Review: A 10-system review of systems was performed and is negative for pertinent findings except as documented above in the HPI. Results 01/28/17 03:54 01/28/17 03:54 Lab Results 01/27/17 01/27/17 01/28/17 16:55 22:23 03:54 WBC 7.6 Hgb 11.3 L Hct 35.4 L Plt Count 240 INR APTT Sodium Potassium Chloride Carbon Dioxide BUN Creatinine Glucose Calcium Magnesium Total Bilirubin AST ALT Alkaline Phosphatase Troponin I 0.15 H* 0.16 H* 01/28/17 01/28/17 03:54 03:54 WBC Hgb Hct Plt Count INR 2.9 APTT 34.6 Sodium 143 Potassium 3.0 L Chloride 107 Carbon Dioxide 27 BUN 26 H Creatinine 1.47 H Glucose 100 Calcium 8.7 Magnesium 1.6 Total Bilirubin 1.1 H AST 21 ALT 17 Alkaline Phosphatase 98 Troponin I
--- NOTE | 2017-01-28 12:41 | Internal Med Progress Note ---
Date of Encounter: 01/28/17 Time of Encounter: 12:38 - Assessment and plan (1) Acute exacerbation of CHF (congestive heart failure) Current Visit: Yes Status: Acute Assessment and plan: 86-year-old male Admitted with chest pain/shortness of breath/pedal edema. Known to have a aortic stenosis. Noted that drop in ejection fraction as compared to the echocardiogram done in 2015. Now ejection fraction is less than 50%. Cardiology on the board. We will follow the recommendations from cardiology. Qualifiers: Congestive heart failure type: unspecified congestive heart failure type Qualified Code(s): I50.9 - Heart failure, unspecified (2) HTN (hypertension) Current Visit: Yes Status: Chronic Assessment and plan: Patient's blood pressure is within acceptable range. We will continue the home dose of medication. Qualifiers: Hypertension type: essential hypertension Qualified Code(s): I10 - Essential (primary) hypertension (3) Stage III chronic kidney disease Current Visit: Yes Status: Chronic Assessment and plan: Patient is stage III chronic kidney disease. At this point we will monitor the creatinine. (4) Pacemaker Current Visit: Yes Status: Chronic Assessment and plan: No acute issues with the pacemaker. (5) DVT prophylaxis Current Visit: Yes Status: Acute Assessment and plan: Coumadin Medical decision making: This patient is a moderate to severe risk of worsening in spite of being on appropriate medication due to the underlying chronic comorbid conditions. - Subjective Interval history: Patient seen and examined. Chart reviewed. Patient is comfortably lying in a bed. Patient denies any chest pain. Noted that patient has no more episodes of any diarrhea/loose motion. Patient is very happy that his symptoms have dramatically improved. - Constitutional Vitals: Temp Pulse Resp BP Pulse Ox 97.9 F 67 18 164/83 92 01/28/17 11:20 01/28/17 11:20 01/28/17 11:20 01/28/17 11:20 01/28/17 11:20 General appearance: Present: cooperative, A&O X 3, pleasant, no acute distress, answers questions appropriately - Head Head exam: Present: atraumatic, normocephalic - Eye Eye exam: Present: PERRL, conjuntiva pink, sclera anicteric Pupils: Present: PERRL - Neck Neck exam general surgery: Present: supple, trachea midline. Absent: lymphadenopathy - Respiratory Respiratory exam: Present: CTAB. Absent: accessory muscle use, rales, rhonchi, wheezes - Cardiovascular Cardiovascular exam: Present: RRR, +S1, +S2. Absent: diastolic murmur, gallop, rubs, systolic murmur - GI/Abdominal GI/Abdominal exam: Present: normal bowel sounds, soft, no peritoneal signs. Absent: distended, tenderness - Extremities Exam Extremities exam: Present: warm, radial pulses palpable and symmetrical. Absent : calf tenderness, cyanotic, pedal edema - Neurological Exam Neurological exam: Present: CN II-XII intact, oriented X3, no focal deficits. Absent: pronater drift, facial droop, speech deficit - Skin Skin exam: Present: dry, intact Internal Medicine: Result - Labs CBC & Chem 7: 01/28/17 03:54 01/28/17 03:54 Labs: Short CBC 01/28/17 Range/Units 03:54 WBC 7.6 (4.3-11.1) K/mcL Hgb 11.3 L (12.9-16.9) g/dL Hct 35.4 L (37.5-50.1) % Plt Count 240 (140-400) K/mcL Neutrophils # 6.2 (1.6-8.9) K/mcL BMP 01/28/17 03:54 Sodium 143 Potassium 3.0 L Chloride 107 Carbon Dioxide 27 BUN 26 H Creatinine 1.47 H Glucose 100 Calcium 8.7 Cardiac Enzymes 01/27/17 01/27/17 Range/Units 16:55 22:23 Troponin I 0.15 H* 0.16 H* (< 0.04) ng/mL Liver Function 01/28/17 Range/Units 03:54 Total Bilirubin 1.1 H (0.3-1.0) mg/dL AST 21 (13-39) Units/L ALT 17 (7-52) Units/L Alkaline Phosphatase 98 (34-104) Units/L Albumin 3.4 L (3.5-5.7) g/dL - ABG Interpretation ABG results: PT/INR, D-dimer PT 32.5 Seconds (9.4-12.1) H 01/28/17 03:54 Consult Discharge Plan - Plan Referrals: Dagoberto Blunt MD [Primary Care Provider] -
[2017-01-28] MEDS ORDERED: *HR* Warfarin 2.5 MG TABLET PO SCH (18:00)
[2017-01-28] MEDS: traZODone 50 MG TABLET PO SCH (21:48)
[2017-01-29 04:44] LABS: Basophils % 0.3 %; Eosinophils # 0.1 K/mcL (0.0-0.6); Eosinophils % 1.9 %; Hematocrit 33.2 % (37.5-50.1); Hemoglobin 10.6 g/dL (12.9-16.9); INR 3.9; Immature Granulocytes % 0.5 % (0-4); Lymphocytes # 0.8 K/mcL (0.6-4.6); Lymphocytes % 13.1 %; Mean Corpuscular HGB Conc 31.9 g/dL (31.6-35.5); Mean Corpuscular Hemoglobin 28.6 pg (28.0-33.3); Mean Corpuscular Volume 89.5 fL (83.0-100.0); Mean Platelet Volume 10.1 fL (9.4-12.4); Monocytes # 0.4 K/mcL (0.0-1.3); Monocytes % 6.4 %; Neutrophils # 4.9 K/mcL (1.6-8.9); Platelet Count 207 K/mcL (140-400); Red Blood Count 3.71 M/mcL (4.19-5.50); Segmented Neutrophils % 77.8 %
[2017-01-29 04:47] LABS: Prothrombin Time 43.4 Seconds (9.4-12.1)
[2017-01-29 04:57] LABS: Albumin 3.2 g/dL (3.5-5.7); Albumin/Globulin Ratio 1.3 (1.1-2.2); Bilirubin,Total 0.7 mg/dL (0.3-1.0); Calcium 8.2 mg/dL (8.6-10.3); Globulin 2.4 g/dL (2.4-3.5); Potassium 3.2 mEq/L (3.5-5.1); Total Protein 5.6 g/dL (6.4-8.9)
[2017-01-29] MEDS: Furosemide 40 MG/4 ML VIAL IVP SCH (09:09)
[2017-01-29] MEDS: Aspirin Enteric Coated 81 MG Tablet PO SCH (09:09)
[2017-01-29] MEDS: Lactobacillus 1 EACH CAP.SPRINK PO SCH (09:09)
[2017-01-29] MEDS: Isosorbide MONOnitrate (24 HR) 30 MG TAB.ER.24H PO SCH (09:09)
[2017-01-29] MEDS: NIFEdipine XL (24 HR) 60 MG TAB.ER.24 PO SCH (09:09)
[2017-01-29] MEDS: Cholecalciferol (D-3) 1,000 UNIT TABLET PO SCH (09:09)
[2017-01-29] MEDS: Metoprolol XL (24 HR) Succ 50 MG TAB.ER.24H PO SCH (09:09)
--- NOTE | 2017-01-29 10:16 | Cardiology Progress Note ---
Date of Encounter: 01/29/17 Time of Encounter: 08:15 Assessment and Plan (1) Acute exacerbation of CHF (congestive heart failure) Current Visit: Yes Status: Acute Patient presented with CHF symptoms. Echo demonstrated LV systolic function low normal to mildly reduced, EF 45-50% without new regional wall motion abnormality. Exam findings and objective data were consistent with congestion. Weight has decreased from 77 to 72 kg. I/O's may not be accurate. His renal function has declined today. Recommend stopping IV diuresis and restarting home dose of Lasix. Also recommend monitoring daily weights, strict I/O's, daily fluid restriction and cardiac diet. Qualifiers: Congestive heart failure type: unspecified congestive heart failure type Qualified Code(s): I50.9 - Heart failure, unspecified (2) Elevated troponin Current Visit: Yes Status: Acute Troponins have been as follows: 0.16, 0.15, 0.16 in setting of CKD. Previous echo in October 2014 demonstrated EF 65%. An echo done during this admission demonstrated EF low normal to mildly reduced at 45-50% appearing global without new wall motion normality. The patient and I discussed these findings. I also had interventional cardiology review his heart catheterization films from 2014. At this time, we recommend medical management. Troponin elevation does not appear consistent with ACS. Additionally, his Hgb dropped to 10.6 from 12.5 and there was concern on presentation regarding recent melanotic stool. The patient is constipated and he still sample has not yet been obtained. At this time, would ideally recommend continuing low dose aspirin. He is on coumadin, now supratherapeutic - management per primary team. Discussion w patient/family: The assessment and plan as outlined above was discussed with the patient and/or family members who expressed understanding and agreement. All questions were answered. Thank you for involving us in the care of your patient. We will sign off. Please call with any questions. Subjective Principal diagnosis: Elevated troponin Interval history: No acute overnight events. Patient denies chest pain. He continues to be constipated and has not yet had a stool. Objective Vital Signs, Last 4 Hours Temp Pulse Resp BP Pulse Ox 01/29/17 07:55 97.7 F 99 16 121/59 91 General: Conversant, No Apparent Distress HEENT: Mucus Membranes Moist Neck: Other (elevated JVP) Cardiac: Reg Rate and Rhythm, Other (no significant murmur) Lungs: Other (diminished breath sounds) Neuro: Alert and responsive, No focal deficits noted Abdomen: Soft, Other (bowel sounds present) Extremities: Other (trace bilateral LE edema) Results 01/29/17 03:59 01/29/17 03:59 Lab Results 01/29/17 01/29/17 01/29/17 03:59 03:59 03:59 WBC 6.3 Hgb 10.6 L Hct 33.2 L Plt Count 207 INR 3.9 Sodium 143 Potassium 3.2 L Chloride 107 Carbon Dioxide 29 BUN 31 H Creatinine 2.04 H Glucose 94 Calcium 8.2 L Total Bilirubin 0.7 AST 16 ALT 16 Alkaline Phosphatase 86 - Imaging and Cardiology Echo: report reviewed - EKG Interpretation EKG results cardiology: other (24h telemetry reveals average heart rate 85 bpm with both general and ventricular pacing) Consult Discharge Plan - Plan Referrals: Dagoberto Blunt MD [Primary Care Provider] -
[2017-01-29] MEDS ORDERED: Furosemide 20 MG TABLET PO PRN (10:25)
[2017-01-29] MEDS ORDERED: Potassium Chloride Elixir 20 MEQ/15 ML UDC PO ONE (16:25)
--- NOTE | 2017-01-29 16:29 | Internal Med Progress Note ---
Date of Encounter: 01/31/17 Time of Encounter: 16:27 - Assessment and plan (1) Acute exacerbation of CHF (congestive heart failure) Current Visit: Yes Status: Acute Assessment and plan: 86-year-old male Admitted with chest pain/shortness of breath/pedal edema. Known to have a aortic stenosis. Noted that drop in ejection fraction as compared to the echocardiogram done in 2015. Now ejection fraction is less than 50%. Cardiology on the board. We will follow the recommendations from cardiology. 01/29/2017. Noted that patient has a exacerbation of CHF. Patient's creatinine has elevated. This is likely secondary to excessive diuresis. Noted that patient is now on small dose of Lasix. We will monitor creatinine very closely. We will recheck labs tomorrow morning. Patient has a drop in the hemoglobin. Patient's Coumadin is on hold. Qualifiers: Congestive heart failure type: unspecified congestive heart failure type Qualified Code(s): I50.9 - Heart failure, unspecified (2) HTN (hypertension) Current Visit: Yes Status: Chronic Assessment and plan: Patient's blood pressure is within acceptable range. We will continue the home dose of medication. Qualifiers: Hypertension type: essential hypertension Qualified Code(s): I10 - Essential (primary) hypertension (3) Stage III chronic kidney disease Current Visit: Yes Status: Chronic Assessment and plan: Patient is stage III chronic kidney disease. At this point we will monitor the creatinine. 01/29/2017. Elevated creatinine is likely secondary to excessive diuretics. Please see above (4) Pacemaker Current Visit: Yes Status: Chronic (5) DVT prophylaxis Current Visit: Yes Status: Acute - Subjective Interval history: Patient seen and examined. Chart reviewed. Patient is comfortably lying in a bed. Patient denies any chest pain. Noted that patient has no more episodes of any diarrhea/loose motion. Patient is very happy that his symptoms have dramatically improved. 01/29/2017. Patient seen and examined. Chart reviewed. Patient is comfortably lying in the bed. Patient's daughter is at bedside. Patient is keen to go home. - Constitutional Vitals: Temp Pulse Resp BP Pulse Ox 97.4 F L 95 16 100/63 91 01/29/17 12:13 01/29/17 12:13 01/29/17 12:13 01/29/17 12:13 01/29/17 12:13 General appearance: Present: cooperative, A&O X 3, pleasant, no acute distress, answers questions appropriately - Head Head exam: Present: atraumatic, normocephalic - Eye Eye exam: Present: PERRL, conjuntiva pink, sclera anicteric Pupils: Present: PERRL - Neck Neck exam general surgery: Present: supple, trachea midline. Absent: lymphadenopathy - Respiratory Respiratory exam: Present: CTAB. Absent: accessory muscle use, rales, rhonchi, wheezes - Cardiovascular Cardiovascular exam: Present: RRR, +S1, +S2. Absent: diastolic murmur, gallop, rubs, systolic murmur - GI/Abdominal GI/Abdominal exam: Present: normal bowel sounds, soft, no peritoneal signs. Absent: distended, tenderness - Extremities Exam Extremities exam: Present: warm, radial pulses palpable and symmetrical. Absent : calf tenderness, cyanotic, pedal edema - Neurological Exam Neurological exam: Present: CN II-XII intact, oriented X3, no focal deficits. Absent: pronater drift, facial droop, speech deficit - Skin Skin exam: Present: dry, intact Internal Medicine: Result - Labs CBC & Chem 7: 01/31/17 04:09 01/31/17 04:09 Labs: Short CBC 01/29/17 Range/Units 03:59 WBC 6.3 (4.3-11.1) K/mcL Hgb 10.6 L (12.9-16.9) g/dL Hct 33.2 L (37.5-50.1) % Plt Count 207 (140-400) K/mcL Neutrophils # 4.9 (1.6-8.9) K/mcL BMP 01/29/17 03:59 Sodium 143 Potassium 3.2 L Chloride 107 Carbon Dioxide 29 BUN 31 H Creatinine 2.04 H Glucose 94 Calcium 8.2 L Liver Function 01/29/17 Range/Units 03:59 Total Bilirubin 0.7 (0.3-1.0) mg/dL AST 16 (13-39) Units/L ALT 16 (7-52) Units/L Alkaline Phosphatase 86 (34-104) Units/L Albumin 3.2 L (3.5-5.7) g/dL - ABG Interpretation ABG results: PT/INR, D-dimer PT 43.4 Seconds (9.4-12.1) H* 01/29/17 03:59 Consult Discharge Plan - Plan Referrals: Dagoberto Blunt MD [Primary Care Provider] -
[2017-01-29] MEDS: traZODone 50 MG TABLET PO SCH (20:41)
[2017-01-29] MEDS: Acetaminophen 325 MG TABLET PO PRN (23:24)
[2017-01-30 03:58] LABS: Basophils % 0.3 %; Eosinophils # 0.2 K/mcL (0.0-0.6); Eosinophils % 2.1 %; Hemoglobin 10.5 g/dL (12.9-16.9); INR 3.3; Immature Granulocytes % 0.2 % (0-4); Lymphocytes # 1.2 K/mcL (0.6-4.6); Lymphocytes % 13.7 %; Mean Corpuscular HGB Conc 31.8 g/dL (31.6-35.5); Mean Corpuscular Hemoglobin 28.6 pg (28.0-33.3); Mean Corpuscular Volume 89.9 fL (83.0-100.0); Mean Platelet Volume 10.4 fL (9.4-12.4); Monocytes # 0.6 K/mcL (0.0-1.3); Monocytes % 7.4 %; Neutrophils # 6.6 K/mcL (1.6-8.9); Nucleated Red Blood Cells 0.2 /100 WBC (0); Platelet Count 225 K/mcL (140-400); Prothrombin Time 36.5 Seconds (9.4-12.1); Red Blood Count 3.67 M/mcL (4.19-5.50); Red Cell Distribution Width 14.7 % (11.5-14.5); Segmented Neutrophils % 76.3 %
[2017-01-30 04:14] LABS: Albumin 3.3 g/dL (3.5-5.7); Albumin/Globulin Ratio 1.3 (1.1-2.2); Bilirubin,Total 0.6 mg/dL (0.3-1.0); Calcium 8.2 mg/dL (8.6-10.3); Globulin 2.5 g/dL (2.4-3.5); Potassium 3.6 mEq/L (3.5-5.1); Total Protein 5.8 g/dL (6.4-8.9)
[2017-01-30] MEDS: Lactobacillus 1 EACH CAP.SPRINK PO SCH (10:27)
[2017-01-30] MEDS: Isosorbide MONOnitrate (24 HR) 30 MG TAB.ER.24H PO SCH (10:27)
[2017-01-30] MEDS: Aspirin Enteric Coated 81 MG Tablet PO SCH (10:27)
[2017-01-30] MEDS: Metoprolol XL (24 HR) Succ 50 MG TAB.ER.24H PO SCH (10:27)
[2017-01-30] MEDS: Cholecalciferol (D-3) 1,000 UNIT TABLET PO SCH (10:27)
[2017-01-30] MEDS: NIFEdipine XL (24 HR) 60 MG TAB.ER.24 PO SCH (10:27)
--- NOTE | 2017-01-30 12:07 | Nephrology Consult Note ---
Date of Encounter: 01/30/17 Time of Encounter: 12:04 Assessment and Plan (1) Acute kidney injury superimposed on chronic kidney disease Current Visit: Yes Status: Acute Patient with JOANA on CKD Stage 3 that seems to be multifactorial. Patient in with CHF and received diuresis in the context of CKD and pulmonary hypertension also his blood pressure has decreased significantly from admission. I recommend holding diuretics and decreasing his antihypertensive medications. He may need gentle fluids. Avoid nephrotoxins. Adjust medications for renal function. Need accurate Is and Os as there is no recorded urine output on 01/28/2017. (2) Anemia Current Visit: Yes Status: Acute Work-up ordered. Monitor for bleeding. Patient with melanotic stool and supratherapeutic INR. Consider transfusion. Qualifiers: Qualified Code(s): D64.9 - Anemia, unspecified (3) HTN (hypertension) Current Visit: Yes Status: Chronic Aggressive control of hypertension will hold the following medications Lisinopril Furosemide Nifedipine. ?if patient taking medications at home. May need to give gentle fluid if sbp remains in the 90s. Qualifiers: Hypertension type: essential hypertension Qualified Code(s): I10 - Essential (primary) hypertension (4) Stage III chronic kidney disease Current Visit: Yes Status: Chronic Followed by Dr. Durbin. (5) Diastolic dysfunction Current Visit: Yes Status: Acute Found on echocardiogram. Per cardiology. Needs good blood pressure control. (6) Pulmonary hypertension Current Visit: Yes Status: Acute Per cardiology and primary team. Avoid aggressive diuresis as the patient may be preload dependent. (7) Elevated troponin Current Visit: Yes Status: Acute Cardiology has not diagnosed with NSTEMI at this time. He does have a decreased EF on his most recent echocardiogram. If cardiac cath is pursued I recommend waiting until his renal function is back to baseline if clinically ok to do so. He denies chest pain at the time of my evaluation. History of Present Illness - Reason for Consult Consult date: 01/30/17 Acute Kidney Injury, Chronic Kidney Disease - Chief Complaint JOANA on CKD - History of Present Illness Mr. St is an 86 yo man with a history of chronic kidney disease followed by Dr. Durbin of [facility] who presents with chest pain and shortness of breath. He was diagnosed with troponin elevation and CHF and was treated with diuretics with subsequent increase in his creatinine. At the time of my evaluation the patient is sitting in a chair eating lunch and states he feels better with resolution of his chest pain and dyspnea. He has no other new complaint. Past Med Surg Social Fam HX - Past Medical History Medical history: non-contributory Psychiatric history: no psych history - Past Surgical History Surgical History: cholecystectomy - Social History Smoking Status: Never smoker Smokeless Tobacco Status: No Alcohol use: none Drug use: none - Family History Father Race: Family Member Ethnicity: Non- Living Status: Age at : 38 Cause of : Blood clot following surgery Hx Family Cardiac Disorders: Yes (DVT) Sister Race: Family Member Ethnicity: Non- Living Status: Still Living Hx Family Cardiac Disorders: Yes (Stroke) Mother Adopted: No Race: Family Member Ethnicity: Non- Living Status: Age at : 72 Cause of : Lung cancer Hx Family Cardiac Disorders: Yes Hx Family Respiratory Disorders: No Hx Family Cancer: Yes (Lung) Hx Family GI Disorders: No Hx Family Endocrine Disorder: Yes Hx Family Neuromuscular Disorders: No Hx Family Neurologic Disorders: No Hx Family HEENT Disorders: No Hx Family Autoimmune Disorders: No Medications and Allergies Aspirin 81 mg PO DAILY 11/04/14 [History] Atorvastatin [Lipitor] 40 mg PO HS 11/04/14 [History] Cholecalciferol (Vitamin D3) [Vitamin D3] 1,000 unit PO DAILY 11/04/14 [History] Isosorbide MONOnitrate (24 HR) [Imdur] 30 mg PO DAILY 11/04/14 [History] Metoprolol XL (24 HR) Succ [Toprol XL] 100 mg PO DAILY 11/04/14 [History] NIFEdipine [Nifedical Xl] 60 mg PO DAILY 11/04/14 [History] Lactobacillus Acidophilus [Acidophilus] 1 each PO DAILY 10/24/15 [History] Acetaminophen [Tylenol] 500 mg PO Q6HR PRN #10 tablet 06/14/16 [Rx] Furosemide [Lasix] 20 mg PO DAILY 01/27/17 [History] Lisinopril [Zestril] 10 mg PO DAILY 01/27/17 [History] Sertraline [Zoloft] 25 mg PO DAILY 01/27/17 [History] Tamsulosin [Flomax] 0.4 mg PO DAILY 01/27/17 [History] Warfarin [Coumadin] 1.25 mg PO [facility] 01/27/17 [History] Warfarin [Coumadin] 2.5 mg PO S[facility] 01/27/17 [History] traZODone [TraZODone] 50 mg PO HS 01/27/17 [History] 3 Allergy/AdvReac Type Severity Reaction Status Date / Time No Known Allergies Allergy Unverified 10/04/16 10:10 Review of Systems All Systems: reviewed and no additional remarkable complaints except as stated ( as per HPI.) Exam - Vital Signs Vital signs: Initial Vital Signs Temp Pulse Resp BP Pulse Ox 98 F 94 18 191/131 92 01/27/17 10:02 01/27/17 10:02 01/27/17 10:02 01/27/17 10:02 01/27/17 10:02 Vital Signs - Last 8 Hours Temp Pulse Resp BP Pulse Ox 01/30/17 11:32 98.2 F 95 17 101/59 97 01/30/17 04:15 97.8 F 95 16 92/56 92 Intake and Output 01/29/17 01/30/17 01/30/17 23:59 07:59 15:59 Intake Total 360 / 360 Output Total 150 / 150 Balance -150 / -150 360 / 360 Intake: Oral 360 / 360 Output: Urine 150 / 150 Other: Meal Breakfast Percent of Meal Consumed 100% # Voids 0 Weight 74.026 kg Patient Weight 01/30/17 23:59 Weight 74.026 kg - General Appearance General appearance: well-developed, well-nourished, frail EENT: ATNC Neck: supple Respiratory: clear Cardiology: no edema, regular rate, regular rhythm Gastrointestinal: no tenderness Integumentary: warm and dry Neurologic: alert and oriented x3 Musculoskeletal: no cyanosis Psychiatric: mood/affect appropriate Results - Lab Results 01/30/17 03:05 01/30/17 03:05 Most recent lab results Calcium 8.2 mg/dL (8.6-10.3) L 01/30/17 03:05 Magnesium 1.6 mg/dL (1.6-2.6) 01/28/17 03:54 Consult Discharge Plan - Plan Referrals: Dagobetro Blunt MD [Primary Care Provider] -
--- NOTE | 2017-01-30 12:35 | Internal Med Progress Note ---
Date of Encounter: 01/31/17 Time of Encounter: 12:33 - Assessment and plan (1) Acute exacerbation of CHF (congestive heart failure) Current Visit: Yes Status: Acute Assessment and plan: 86-year-old male Admitted with chest pain/shortness of breath/pedal edema. Known to have a aortic stenosis. Noted that drop in ejection fraction as compared to the echocardiogram done in 2014. Now ejection fraction is less than 50%. Cardiology on the board. We will follow the recommendations from cardiology. 01/29/2017. Noted that patient has a exacerbation of CHF. Patient's creatinine has elevated. This is likely secondary to excessive diuresis. Noted that patient is now on small dose of Lasix. We will monitor creatinine very closely. We will recheck labs tomorrow morning. Patient has a drop in the hemoglobin. Patient's Coumadin is on hold. 01/30/2017. His acute exacerbation of congestive heart failure Noted that there is a decrease in the ejection fraction as compared to the echo from 2014. Cardiology on the board and at present there is no plan for cardiac catheterization. Present plan is medical management. Noted that INR is trending down. Warfarin on hold. Pharmacy to manage warfarin. Qualifiers: Congestive heart failure type: unspecified congestive heart failure type Qualified Code(s): I50.9 - Heart failure, unspecified (2) HTN (hypertension) Current Visit: Yes Status: Chronic Assessment and plan: Patient's blood pressure is within acceptable range. We will continue the home dose of medication. 01/30/2017 Noted that patient was hypotensive this morning. We will discontinue all antihypertensive medications. Close monitoring of the blood pressure. His blood pressure persistently on the lower side then we will consider intravenous fluids. Qualifiers: Hypertension type: essential hypertension Qualified Code(s): I10 - Essential (primary) hypertension (3) Stage III chronic kidney disease Current Visit: Yes Status: Chronic Assessment and plan: Patient is stage III chronic kidney disease. At this point we will monitor the creatinine. 01/29/2017. Elevated creatinine is likely secondary to excessive diuretics. Please see above 01/30/2017 Nephrology on the board. We will follow the recommendations from nephrology as creatinine is persistently elevated. (4) Pacemaker Current Visit: Yes Status: Chronic Assessment and plan: No acute issues with the pacemaker. (5) DVT prophylaxis Current Visit: Yes Status: Acute Assessment and plan: Coumadin Medical decision making: This patient is a moderate to severe risk of worsening in spite of being on appropriate medication due to the underlying chronic comorbid conditions. - Subjective Interval history: Patient seen and examined. Chart reviewed. Patient is comfortably lying in a bed. Patient denies any chest pain. Noted that patient has no more episodes of any diarrhea/loose motion. Patient is very happy that his symptoms have dramatically improved. 01/29/2017. Patient seen and examined. Chart reviewed. Patient is comfortably lying in the bed. Patient's daughter is at bedside. Patient is keen to go home. 01/30/2017 Patient is comfortably sitting up in chair. Patient feels that he is very weak. Patient denies any chest pains/short of breath/diarrhea. Patient is constipated - Constitutional Vitals: Temp Pulse Resp BP Pulse Ox 98.2 F 95 17 101/59 97 01/30/17 11:32 01/30/17 11:32 01/30/17 11:32 01/30/17 11:32 01/30/17 11:32 General appearance: Present: cooperative, A&O X 3, pleasant, no acute distress, answers questions appropriately - Head Head exam: Present: atraumatic, normocephalic - Eye Eye exam: Present: PERRL, conjuntiva pink, sclera anicteric Pupils: Present: PERRL - Neck Neck exam general surgery: Present: supple, trachea midline. Absent: lymphadenopathy - Respiratory Respiratory exam: Present: CTAB. Absent: accessory muscle use, rales, rhonchi, wheezes - Cardiovascular Cardiovascular exam: Present: RRR, +S1, +S2. Absent: diastolic murmur, gallop, rubs, systolic murmur - GI/Abdominal GI/Abdominal exam: Present: normal bowel sounds, soft, no peritoneal signs. Absent: distended, tenderness - Extremities Exam Extremities exam: Present: warm, radial pulses palpable and symmetrical. Absent : calf tenderness, cyanotic, pedal edema - Neurological Exam Neurological exam: Present: CN II-XII intact, oriented X3, no focal deficits. Absent: pronater drift, facial droop, speech deficit - Skin Skin exam: Present: dry, intact Internal Medicine: Result - Labs CBC & Chem 7: 01/31/17 04:09 01/31/17 04:09 Labs: Short CBC 01/30/17 Range/Units 03:05 WBC 8.6 (4.3-11.1) K/mcL Hgb 10.5 L (12.9-16.9) g/dL Hct 33.0 L (37.5-50.1) % Plt Count 225 (140-400) K/mcL Neutrophils # 6.6 (1.6-8.9) K/mcL BMP 01/30/17 03:05 Sodium 142 Potassium 3.6 Chloride 106 Carbon Dioxide 26 BUN 46 H Creatinine 2.68 H Glucose 99 Calcium 8.2 L Liver Function 01/30/17 Range/Units 03:05 Total Bilirubin 0.6 (0.3-1.0) mg/dL AST 14 (13-39) Units/L ALT 15 (7-52) Units/L Alkaline Phosphatase 88 (34-104) Units/L Albumin 3.3 L (3.5-5.7) g/dL - ABG Interpretation ABG results: PT/INR, D-dimer PT 36.5 Seconds (9.4-12.1) H 01/30/17 03:05 Consult Discharge Plan - Plan Referrals: Dagoberto Blunt MD [Primary Care Provider] -
[2017-01-30] MEDS ORDERED: Warfarin perPT PO PRN (15:02)
[2017-01-30] MEDS: Pantoprazole 40 MG VIAL IVP SCH (18:23)
[2017-01-30 19:27] LABS: Bilirubin,Urine Small (Negative); Blood,Urine Negative (Negative); Clarity,Urine Clear (Clear); Color,Urine Yellow (Yellow); Glucose,Urine (UA) Normal (Normal); Ketones,Urine Negative (Negative); Leukocyte Esterase,Urine Negative (Negative); Nitrite,Urine Negative (Negative); Protein,Urine 100 mg/dL (Neg-Trace); Specific Gravity,Urine 1.027 (1.010-1.025); Urobilinogen,Urine Normal (Normal)
[2017-01-30 19:30] LABS: Bacteria,Urine None Seen per hpf (None-Few); Squamous Epithelial Cell,Urine Many per lpf (None-Few)
[2017-01-30 19:41] LABS: Hyaline Casts,Urine Few per lpf (None-Few)
[2017-01-30 19:43] LABS: Creatinine,Urine 283 mg/dL; Microalbumin,Urine > 450 mg/L; Protein/Creatinine Ratio,Urine 0.55 mg/mg (0.00-0.20)
[2017-01-30] MEDS: traZODone 50 MG TABLET PO SCH (21:47)
[2017-01-31 04:20] LABS: Basophils % 0.4 %; Eosinophils # 0.2 K/mcL (0.0-0.6); Eosinophils % 2.6 %; Hematocrit 30.9 % (37.5-50.1); Hemoglobin 9.9 g/dL (12.9-16.9); Immature Granulocytes % 0.3 % (0-4); Lymphocytes # 0.8 K/mcL (0.6-4.6); Lymphocytes % 11.3 %; Mean Corpuscular Hemoglobin 28.3 pg (28.0-33.3); Mean Corpuscular Volume 88.3 fL (83.0-100.0); Monocytes # 0.5 K/mcL (0.0-1.3); Monocytes % 6.3 %; Neutrophils # 5.7 K/mcL (1.6-8.9); Platelet Count 209 K/mcL (140-400); Red Cell Distribution Width 14.8 % (11.5-14.5); Segmented Neutrophils % 79.1 %
[2017-01-31 04:26] LABS: INR 2.6; Prothrombin Time 28.1 Seconds (9.4-12.1)
[2017-01-31 04:40] LABS: Phosphorous 4.7 mg/dL (2.7-4.5)
[2017-01-31 04:42] LABS: Albumin 3.1 g/dL (3.5-5.7); Albumin/Globulin Ratio 1.3 (1.1-2.2); Bilirubin,Total 0.7 mg/dL (0.3-1.0); Calcium 8.3 mg/dL (8.6-10.3); Globulin 2.4 g/dL (2.4-3.5); Potassium 3.3 mEq/L (3.5-5.1); Total Protein 5.5 g/dL (6.4-8.9)
[2017-01-31] MEDS: Pantoprazole 40 MG VIAL IVP SCH ×2 (05:30→17:47)
--- NOTE | 2017-01-31 09:00 | Nephrology Progress Note ---
Date of Encounter: 01/31/17 Time of Encounter: 08:59 - Assessment and Plan (1) Acute kidney injury superimposed on chronic kidney disease Current Visit: Yes Status: Acute Patient with JOANA on CKD. Renal function stable. Avoid nephrotoxins. Adjust medications for renal function. (2) Anemia Current Visit: Yes Status: Acute Follow hemoglobin. Qualifiers: Qualified Code(s): D64.9 - Anemia, unspecified (3) HTN (hypertension) Current Visit: Yes Status: Chronic titrate antihypertensive medications as needed. Qualifiers: Hypertension type: essential hypertension Qualified Code(s): I10 - Essential (primary) hypertension (4) Stage III chronic kidney disease Current Visit: Yes Status: Chronic (5) Diastolic dysfunction Current Visit: Yes Status: Acute per cardiology. control hypertension. (6) Pulmonary hypertension Current Visit: Yes Status: Acute per primary team and cardiology. (7) Elevated troponin Current Visit: Yes Status: Acute Per cardiology. May need cardiac cath once JOANA is improved. Subjective Principal diagnosis: Elevated troponin Interval history: Mr. St is sitting in a chair eating his breakfast. No new complaint. He denies chest pain. Objective - Vital Signs Vital signs: Vital Signs Temp Pulse Resp BP Pulse Ox 01/31/17 07:22 97.7 F 60 17 123/70 95 01/31/17 03:28 98.4 F 87 16 132/63 90 01/30/17 23:20 97.7 F 64 16 102/56 90 01/30/17 19:22 97.4 F L 94 16 110/63 92 01/30/17 15:40 98.3 F 69 17 102/61 92 01/30/17 11:32 98.2 F 95 17 101/59 97 Intake and Output 01/30/17 01/31/17 01/31/17 23:59 07:59 15:59 Intake Total 0 / 0 Output Total 60 / 60 Balance -60 / -60 Intake: Oral 0 / 0 Output: Urine 60 / 60 Other: Stool Size Small Stool Consistency formed Stool Characteristics Normal for Patient Stool Color Brown # Voids 1 1 # Bowel Movements 1 Weight 75.296 kg Patient Weight 01/31/17 23:59 Weight 75.296 kg - General Appearance General appearance: Present: well-developed, well-nourished EENT: Present: ATNC Neck: Present: supple Cardiology: Present: regular rate Neurologic: Present: alert and oriented x3 Psychiatric: Present: mood/affect appropriate - Lab 01/31/17 04:09 01/31/17 04:09 Most recent lab results Calcium 8.3 mg/dL (8.6-10.3) L 01/31/17 04:09 Phosphorus 4.7 mg/dL (2.7-4.5) H 01/31/17 04:09 Magnesium 1.6 mg/dL (1.6-2.6) 01/28/17 03:54 Urine Creatinine 283 mg/dL 01/30/17 19:13 Urine Total Protein 155 mg/dL 01/30/17 19:13 Consult Discharge Plan - Plan Referrals: Dagoberto Blunt MD [Primary Care Provider] -
[2017-01-31] MEDS: Lactobacillus 1 EACH CAP.SPRINK PO SCH (09:22)
[2017-01-31] MEDS: Isosorbide MONOnitrate (24 HR) 30 MG TAB.ER.24H PO SCH (09:22)
[2017-01-31] MEDS: Metoprolol XL (24 HR) Succ 50 MG TAB.ER.24H PO SCH (09:22)
[2017-01-31] MEDS: Cholecalciferol (D-3) 1,000 UNIT TABLET PO SCH (09:22)
[2017-01-31] MEDS: Aspirin Enteric Coated 81 MG Tablet PO SCH (09:22)
[2017-01-31] MEDS ORDERED: *HR* Phytonadione 5 MG TABLET PO ONE (15:03)
--- NOTE | 2017-01-31 15:07 | Internal Med Progress Note ---
Date of Encounter: 01/31/17 Time of Encounter: 15:06 - Assessment and plan (1) Anemia Current Visit: Yes Status: Acute Assessment and plan: 86/male Multiple Comtrex problem Cardiology Admitted with exacerbation of CHF Echocardiogram 10/2014: EF 65%, severe aortic stenosis:: 01/2017: EF 45-50%, RVSP 50 Cardiology recommended medical management Nephrology Worsening creatinine likely secondary to excessive diuresis. Hold antihypertensive in the view of hypotension Nephrology recommended holding Lasix and close observation. Gastroenterology Worsening hemoglobin like is secondary to internal GI bleed. Gastroenteritis recommended possible EGD tomorrow/hold Coumadin/PPI twice a day/ 1 dose of 5 mg of vitamin K(INR2.6) Placement Seen by PT/OT. Recommended inpatient rehabilitation Qualifiers: Anemia type: unspecified type Qualified Code(s): D64.9 - Anemia, unspecified (2) Acute exacerbation of CHF (congestive heart failure) Current Visit: Yes Status: Acute Assessment and plan: 86-year-old male Admitted with chest pain/shortness of breath/pedal edema. Known to have a aortic stenosis. Noted that drop in ejection fraction as compared to the echocardiogram done in 2014. Now ejection fraction is less than 50%. Cardiology on the board. We will follow the recommendations from cardiology. 01/29/2017. Noted that patient has a exacerbation of CHF. Patient's creatinine has elevated. This is likely secondary to excessive diuresis. Noted that patient is now on small dose of Lasix. We will monitor creatinine very closely. We will recheck labs tomorrow morning. Patient has a drop in the hemoglobin. Patient's Coumadin is on hold. 01/08 Admitted with exacerbation of CHF. Noted that there is a recent drop in the ejection fraction as compared to the echocardiogram in 2014 Cardiology on the board. Cardiology recommended medical management. Qualifiers: Congestive heart failure type: unspecified congestive heart failure type Qualified Code(s): I50.9 - Heart failure, unspecified (3) HTN (hypertension) Current Visit: Yes Status: Chronic Assessment and plan: Patient's blood pressure is within acceptable range. We will continue the home dose of medication. Qualifiers: Hypertension type: essential hypertension Qualified Code(s): I10 - Essential (primary) hypertension (4) Stage III chronic kidney disease Current Visit: Yes Status: Chronic Assessment and plan: Patient is stage III chronic kidney disease. At this point we will monitor the creatinine. 01/29/2017. Elevated creatinine is likely secondary to excessive diuretics. Please see above (5) Pacemaker Current Visit: Yes Status: Chronic Assessment and plan: No acute issues with the pacemaker. (6) DVT prophylaxis Current Visit: Yes Status: Acute Assessment and plan: SCD Medical decision making: This patient is a moderate to severe risk of worsening in spite of being on appropriate medication due to the underlying chronic comorbid conditions. - Subjective Interval history: Patient seen and examined. Chart reviewed. Patient is comfortably lying in a bed. Patient denies any chest pain. Noted that patient has no more episodes of any diarrhea/loose motion. Patient is very happy that his symptoms have dramatically improved. - Constitutional Vitals: Temp Pulse Resp BP Pulse Ox 97.6 F 61 16 111/55 94 01/31/17 13:06 01/31/17 13:06 01/31/17 13:06 01/31/17 13:06 01/31/17 13:06 General appearance: Present: cooperative, A&O X 3, pleasant, no acute distress, answers questions appropriately - Head Head exam: Present: atraumatic, normocephalic - Eye Eye exam: Present: PERRL, conjuntiva pink, sclera anicteric Pupils: Present: PERRL - Neck Neck exam general surgery: Present: supple, trachea midline. Absent: lymphadenopathy - Respiratory Respiratory exam: Present: CTAB. Absent: accessory muscle use, rales, rhonchi, wheezes - Cardiovascular Cardiovascular exam: Present: RRR, +S1, +S2. Absent: diastolic murmur, gallop, rubs, systolic murmur - GI/Abdominal GI/Abdominal exam: Present: normal bowel sounds, soft, no peritoneal signs. Absent: distended, tenderness - Extremities Exam Extremities exam: Present: warm, radial pulses palpable and symmetrical. Absent : calf tenderness, cyanotic, pedal edema - Neurological Exam Neurological exam: Present: CN II-XII intact, oriented X3, no focal deficits. Absent: pronater drift, facial droop, speech deficit - Skin Skin exam: Present: dry, intact Internal Medicine: Result - Labs CBC & Chem 7: 01/31/17 04:09 01/31/17 04:09 Labs: Short CBC 01/31/17 Range/Units 04:09 WBC 7.2 (4.3-11.1) K/mcL Hgb 9.9 L (12.9-16.9) g/dL Hct 30.9 L (37.5-50.1) % Plt Count 209 (140-400) K/mcL Neutrophils # 5.7 (1.6-8.9) K/mcL BMP 01/31/17 04:09 Sodium 142 Potassium 3.3 L Chloride 106 Carbon Dioxide 27 BUN 53 H Creatinine 2.65 H Glucose 94 Calcium 8.3 L Liver Function 01/31/17 Range/Units 04:09 Total Bilirubin 0.7 (0.3-1.0) mg/dL AST 11 L (13-39) Units/L ALT 13 (7-52) Units/L Alkaline Phosphatase 80 (34-104) Units/L Albumin 3.1 L (3.5-5.7) g/dL Urine 01/30/17 Range/Units 19:11 Urine Color Yellow (Yellow) Urine Clarity Clear (Clear) Urine pH 5.0 (5.0-8.0) pH Units Ur Specific [place] 1.027 H (1.010-1.025) Urine Protein 100 H (Neg-Trace) mg/dL Urine Glucose (UA) Normal (Normal) mg/dL - ABG Interpretation ABG results: PT/INR, D-dimer PT 28.1 Seconds (9.4-12.1) H 01/31/17 04:09 Consult Discharge Plan - Plan Referrals: Dagoberto Blunt MD [Primary Care Provider] -
[2017-01-31] MEDS ORDERED: *HR* Warfarin 2.5 MG TABLET PO ONE (18:00)
[2017-01-31] MEDS: traZODone 50 MG TABLET PO SCH (20:01)
[2017-02-01] MEDS: Pantoprazole 40 MG VIAL IVP SCH (05:46)
[2017-02-01 06:48] LABS: Basophils % 0.3 %; Eosinophils # 0.2 K/mcL (0.0-0.6); Eosinophils % 2.3 %; Hematocrit 34.5 % (37.5-50.1); Hemoglobin 10.9 g/dL (12.9-16.9); Immature Granulocytes % 0.4 % (0-4); Immature Platelets 3.6 % (1.1-6.1); Lymphocytes # 1.2 K/mcL (0.6-4.6); Lymphocytes % 16.3 %; Mean Corpuscular HGB Conc 31.6 g/dL (31.6-35.5); Mean Corpuscular Hemoglobin 28.3 pg (28.0-33.3); Mean Corpuscular Volume 89.6 fL (83.0-100.0); Mean Platelet Volume 10.2 fL (9.4-12.4); Monocytes # 0.5 K/mcL (0.0-1.3); Monocytes % 7.5 %; Neutrophils # 5.2 K/mcL (1.6-8.9); Platelet Count 211 K/mcL (140-400); Red Blood Count 3.85 M/mcL (4.19-5.50); Red Cell Distribution Width 15.1 % (11.5-14.5); Segmented Neutrophils % 73.2 %
[2017-02-01 06:54] LABS: INR 1.7; Prothrombin Time 18.6 Seconds (9.4-12.1)
[2017-02-01 07:09] LABS: Albumin 3.3 g/dL (3.5-5.7); Albumin/Globulin Ratio 1.2 (1.1-2.2); Bilirubin,Total 0.9 mg/dL (0.3-1.0); Calcium 8.4 mg/dL (8.6-10.3); Globulin 2.7 g/dL (2.4-3.5); Potassium 3.9 mEq/L (3.5-5.1)
[2017-02-01] MEDS: Aspirin Enteric Coated 81 MG Tablet PO SCH ×2 (09:19→16:42)
[2017-02-01] MEDS: Metoprolol XL (24 HR) Succ 50 MG TAB.ER.24H PO SCH (09:20)
[2017-02-01] MEDS: Lactobacillus 1 EACH CAP.SPRINK PO SCH (09:20)
[2017-02-01] MEDS: Isosorbide MONOnitrate (24 HR) 30 MG TAB.ER.24H PO SCH (09:20)
[2017-02-01] MEDS: Cholecalciferol (D-3) 1,000 UNIT TABLET PO SCH (09:21)
--- NOTE | 2017-02-01 09:55 | Nephrology Progress Note ---
Date of Encounter: 02/01/17 Time of Encounter: 09:51 - Assessment and Plan (1) Acute kidney injury superimposed on chronic kidney disease Current Visit: Yes Status: Acute Kidney function improving bu not at baseline yet-Scr 2.07, GFR 31 Continue strict I/Os (2) Stage III chronic kidney disease Current Visit: Yes Status: Chronic Avoid nephrotoxins if possible (3) Diastolic dysfunction Current Visit: Yes Status: Acute per cardiology team Subjective Principal diagnosis: Elevated troponin Interval history: Patient seen and examined. States he is doing well today Objective - Vital Signs Vital signs: Vital Signs Temp Pulse Resp BP Pulse Ox 02/01/17 07:24 97.4 F L 61 16 155/73 99 02/01/17 02:44 97.6 F 60 16 150/65 99 01/31/17 23:10 98.0 F 63 16 121/61 96 01/31/17 19:06 97.9 F 65 16 159/72 90 01/31/17 13:06 97.6 F 61 16 111/55 94 Intake and Output 01/31/17 02/01/17 02/01/17 23:59 07:59 15:59 Intake Total 300 / 300 0 / 0 Balance 300 / 300 0 / 0 Intake: Oral 300 / 300 0 / 0 Other: Weight 74.956 kg Patient Weight 02/01/17 23:59 Weight 74.956 kg - General Appearance General appearance: Present: well-developed, well-nourished EENT: Present: ATNC, mucous membranes moist, hearing intact, vision intact Neck: Present: supple Respiratory: Present: clear Cardiology: Present: no edema, normal S1, normal S2 Gastrointestinal: Present: no tenderness, no guarding Integumentary: Present: warm and dry Neurologic: Present: alert and oriented x3 Psychiatric: Present: mood/affect appropriate, cooperative - Lab 02/01/17 06:31 02/01/17 06:31 Most recent lab results Calcium 8.4 mg/dL (8.6-10.3) L 02/01/17 06:31 Phosphorus 4.7 mg/dL (2.7-4.5) H 01/31/17 04:09 Magnesium 1.6 mg/dL (1.6-2.6) 01/28/17 03:54 Urine Creatinine 283 mg/dL 01/30/17 19:13 Urine Total Protein 155 mg/dL 01/30/17 19:13 Consult Discharge Plan - Plan Referrals: Dagoberto Blunt MD [Primary Care Provider] -
--- NOTE | 2017-02-01 11:39 | Gastroenterology Consult Note ---
<Edwards,Mariano Cruz - Last Filed: 02/01/17 11:36> Date of Encounter: 02/01/17 Time of Encounter: 10:40 - Assessment and plan (1) Anemia Current Visit: Yes Status: Acute Assessment and plan: Hgb 12.5 on admission and 10.9 this AM. Plan for EGD today to r/o esophagitis, gastritis, duodenitis, PUD, MW tear, or AVM. Keep NPO for now and continue to hold Coumadin. Continue to monitor CBC and transfuse PRBC as needed. Qualifiers: Anemia type: unspecified type Qualified Code(s): D64.9 - Anemia, unspecified (2) Stage III chronic kidney disease Current Visit: Yes Status: Chronic - Time Spent With Patient Total time spent is greater than 50% in coordination of care (as documented) at patient's floor/unit and/or counseling patient: GI History of Present Illness - Data of Consult Patient: new to practice Consult date: 02/01/17 Requesting Physician: Joel Guillory MD - Consult Narrative Reason for consult: R/o GI bleed History of present illness: Mr. St is a 86 year old male with PMHx of HTN, HLD, CHF, CABG, pacemaker on Coumadin presented to the ED with c/o chest pain, shortness of breath that started 1 week prior to admission accompanied by nausea and diarrhea. He reported black stool the day prior to admission. He denies fever, chills, abdominal pain, nausea, vomiting, constipation. Echo completed and showed EF 45- 50%. We were consulted to evaluate his anemia. Hgb on admission was 12.5 and dropped to 9.9 on 01/31. This morning his Hgb is 10.9. Fecal occult blood test was negative. Coumadin is being held, and he receive Vitamin K for INR of 2.6. INR today is 1.7. Procedures: None NSAIDs: ASA Anticoagulation: Coumadin Past Med Surg Social Fam HX - Past Medical History Medical history: non-contributory Psychiatric history: no psych history - Past Surgical History Surgical History: cholecystectomy - Social History Smoking Status: Never smoker Smokeless Tobacco Status: No Alcohol use: none Drug use: none - Family History Father Race: Family Member Ethnicity: Non- Living Status: Age at : 38 Cause of : Blood clot following surgery Hx Family Cardiac Disorders: Yes (DVT) Sister Race: Family Member Ethnicity: Non- Living Status: Still Living Hx Family Cardiac Disorders: Yes (Stroke) Mother Adopted: No Race: Family Member Ethnicity: Non- Living Status: Age at : 72 Cause of : Lung cancer Hx Family Cardiac Disorders: Yes Hx Family Respiratory Disorders: No Hx Family Cancer: Yes (Lung) Hx Family GI Disorders: No Hx Family Endocrine Disorder: Yes Hx Family Neuromuscular Disorders: No Hx Family Neurologic Disorders: No Hx Family HEENT Disorders: No Hx Family Autoimmune Disorders: No - Gastrointestinal Gastrointestinal: Present: as per HPI - Constitutional Constitutional: as per HPI - EENT Eyes: as per HPI Ears: Present: as per HPI Nose, mouth and throat: Present: as per HPI - Cardiovascular Cardiovascular ROS: Present: as per HPI - Respiratory Respiratory IM: Present: as per HPI - Genitourinary Genitourinary: Absent: change in color, Urinary frequency - Neurological ROS Neurological GI: Present: as per HPI - Hematologic/Lymphatic Hematologic/Lymphatic pediatric: Present: as per HPI - Musculoskeletal Musculoskeletal ROS GI: Present: as per HPI - Integumentary Integumentary GI: Present: as per HPI - Psychiatric ROS Psychiatric GI: Present: as per HPI - Endocrine Endocrine IM: Present: as per HPI - Constitutional Vitals: Temp Pulse Resp BP Pulse Ox 97.5 F L 60 16 189/69 94 02/01/17 10:52 02/01/17 10:52 02/01/17 10:52 02/01/17 10:52 02/01/17 10:52 General appearance: Present: cooperative, A&O X 3, no acute distress, answers questions appropriately - Head Head exam: Present: atraumatic, normocephalic - Eye Eye exam: Present: normal appearance, sclera anicteric - ENT ENT exam: Present: mucous membranes dry - Neck Neck exam general surgery: Present: normal inspection, trachea midline - Respiratory Respiratory exam: Present: CTAB. Absent: decreased breath sounds - Cardiovascular Cardiovascular exam: Present: RRR, +S1, +S2 - GI/Abdominal GI/Abdominal exam: Present: soft, no peritoneal signs. Absent: distended, firm , guarding, tenderness - Rectal Rectal exam: Present: deferred - Extremities Exam Extremities exam: Present: warm - Neurological Exam Neurological exam: Present: no focal deficits - Psychiatric Psychiatric exam: Present: normal affect, normal mood - Skin Skin exam: Present: dry, intact, normal color, warm Results - Labs CBC & Chem 7: 02/01/17 06:31 02/01/17 06:31 Labs: Last Result Calcium 8.4 mg/dL (8.6-10.3) L 02/01/17 06:31 Iron 28 mcg/dL (65-175) L 01/31/17 04:09 % Saturation 10 % (20-55) L 01/31/17 04:09 Transferrin 191 mg/dL (203-362) L 01/31/17 04:09 Ferritin 100 ng/ml (20-250) 01/31/17 04:09 Troponin I 0.16 ng/mL (< 0.04) H* 01/27/17 22:23 Triglycerides 63 mg/dL (< 150) 01/28/17 03:54 Vitamin B12 471 pg/mL (250-1100) 01/31/17 04:09 Folate 28.0 ng/mL (3.0-16.0) H 01/31/17 04:09 Stool Occult Blood Negative (Negative) 01/30/17 16:00 Entire Visit Hgb 10.9 g/dL (12.9-16.9) L 02/01/17 06:31 Hct 34.5 % (37.5-50.1) L 02/01/17 06:31 PT 18.6 Seconds (9.4-12.1) H 02/01/17 06:31 Ferritin 100 ng/ml (20-250) 01/31/17 04:09 Total Bilirubin 0.9 mg/dL (0.3-1.0) 02/01/17 06:31 AST 15 Units/L (13-39) 02/01/17 06:31 ALT 15 Units/L (7-52) 02/01/17 06:31 Folate 28.0 ng/mL (3.0-16.0) H 01/31/17 04:09 - ABG ABG results: PT/INR, D-dimer PT 18.6 Seconds (9.4-12.1) H 02/01/17 06:31 Consult Discharge Plan - Plan Referrals: Dagoberto Blunt MD [Primary Care Provider] - (working on Placement) <Gul,Coty - Last Filed: 02/01/17 16:08> Date of Encounter: 02/01/17 Time of Encounter: 14:00 - Time Spent With Patient Total time spent is greater than 50% in coordination of care (as documented) at patient's floor/unit and/or counseling patient: GI History of Present Illness - Data of Consult Requesting Physician: Joel Guillory MD - Consult Narrative History of present illness: Mr. St is a 86 year old male - Constitutional Vitals: Temp Pulse Resp BP Pulse Ox 97.9 F 80 18 172/81 95 02/01/17 13:35 02/01/17 13:35 02/01/17 13:35 02/01/17 13:35 02/01/17 13:35 Results - Labs CBC & Chem 7: 02/01/17 06:31 02/01/17 06:31 Labs: Last Result Calcium 8.4 mg/dL (8.6-10.3) L 02/01/17 06:31 Iron 28 mcg/dL (65-175) L 01/31/17 04:09 % Saturation 10 % (20-55) L 01/31/17 04:09 Transferrin 191 mg/dL (203-362) L 01/31/17 04:09 Ferritin 100 ng/ml (20-250) 01/31/17 04:09 Troponin I 0.16 ng/mL (< 0.04) H* 01/27/17 22:23 Triglycerides 63 mg/dL (< 150) 01/28/17 03:54 Vitamin B12 471 pg/mL (250-1100) 01/31/17 04:09 Folate 28.0 ng/mL (3.0-16.0) H 01/31/17 04:09 Stool Occult Blood Negative (Negative) 01/30/17 16:00 Entire Visit Hgb 10.9 g/dL (12.9-16.9) L 02/01/17 06:31 Hct 34.5 % (37.5-50.1) L 02/01/17 06:31 PT 18.6 Seconds (9.4-12.1) H 02/01/17 06:31 Ferritin 100 ng/ml (20-250) 01/31/17 04:09 Total Bilirubin 0.9 mg/dL (0.3-1.0) 02/01/17 06:31 AST 15 Units/L (13-39) 02/01/17 06:31 ALT 15 Units/L (7-52) 02/01/17 06:31 Folate 28.0 ng/mL (3.0-16.0) H 01/31/17 04:09 - ABG ABG results: PT/INR, D-dimer PT 18.6 Seconds (9.4-12.1) H 02/01/17 06:31 - Attending Attestation I examined this patient and my medical decision-making was reviewed with the Resident Physician. I agree with the documented findings, disposition and treatment plan as described except to the extent set forth below. Pt with anemia, r/o Upper GI causes. On rectal exam stool are brown. Rec- EGD today
--- NOTE | 2017-02-01 11:45 | Internal Med Progress Note ---
<Yasir Richmond - Last Filed: 02/01/17 13:07> Date of Encounter: 02/01/17 Time of Encounter: 11:43 - Assessment and plan (1) Anemia Current Visit: Yes Status: Acute Assessment and plan: Suspecting anemia secondary to upper GI bleed. Patient had a 2 g drop in hemoglobin. He reported melanotic stools. 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 Coumadin on hold. INR is 1.7. Hemoglobin is stable. Qualifiers: Anemia type: iron deficiency Iron deficiency anemia type: chronic blood loss Qualified Code(s): D50.0 - Iron deficiency anemia secondary to blood loss (chronic) (2) Elevated troponin Current Visit: Yes Status: Acute Assessment and plan: Patient elevated troponin since admission: 0.16, 0.15, 0.16. Patient's ejection fraction from 2015 was 65%. Ejection fraction at this admission was 45-50%. Cardiology reviewed patient and recommended medical management. We will continue patient's aspirin, statin, beta jane, Imdur. (3) Acute exacerbation of CHF (congestive heart failure) Current Visit: Yes Status: Resolved Assessment and plan: resolved. presented with sob/chest pain Chest x-ray showed bilateral pleural effusions. BNP 2796. Echocardiogram 2014 showed EF of 60-65%. Echocardiogram on this admission showed an EF of 45-50%. Patient was diuresed with IV Lasix. Currently he is euvolemic, clear lung sounds, absent pedal edema. Plan: Continue home medication of Lasix 20 mg by mouth daily. Qualifiers: Congestive heart failure type: unspecified congestive heart failure type Qualified Code(s): I50.9 - Heart failure, unspecified (4) Acute kidney injury superimposed on chronic kidney disease Current Visit: Yes Status: Acute Assessment and plan: Secondary to over diuresis. Improving. BMP in the morning. Strict I's and O's. (5) DVT prophylaxis Current Visit: Yes Status: Acute Assessment and plan: SCD (6) HTN (hypertension) Current Visit: Yes Status: Chronic Assessment and plan: Patient's blood pressure is within acceptable range. Continue lisinopril, Procardia, Lasix. Qualifiers: Hypertension type: essential hypertension Qualified Code(s): I10 - Essential (primary) hypertension - Subjective Interval history: Patient laying comfortably in bed. Without shortness of breath. Lying flat. Denies chest pain, lower extremity swelling, abdominal pain, nausea, vomiting, diarrhea. - Constitutional Vitals: Temp Pulse Resp BP Pulse Ox 97.5 F L 60 16 189/69 94 02/01/17 10:52 02/01/17 10:52 02/01/17 10:52 02/01/17 10:52 02/01/17 10:52 General appearance: Present: cooperative, A&O X 3, pleasant, no acute distress, answers questions appropriately - Other Additional findings: General: Pleasant without distress Heart: Regular rate and rhythm with no murmur audible Lungs: Clear to auscultation bilaterally Abdomen: Soft nontender, nondistended positive bowel sounds Skin: warm and dry Extremities: Absent pedal edema Neuro: Cranial nerves II through XII intact, UE and LE sensation equal bilaterally, Vascular: Pedal and radial pulses 2 out of 4 Internal Medicine: Result - Labs CBC & Chem 7: 02/01/17 06:31 02/01/17 06:31 Labs: Short CBC 02/01/17 Range/Units 06:31 WBC 7.1 (4.3-11.1) K/mcL Hgb 10.9 L (12.9-16.9) g/dL Hct 34.5 L (37.5-50.1) % Plt Count 211 (140-400) K/mcL Neutrophils # 5.2 (1.6-8.9) K/mcL BMP 02/01/17 06:31 Sodium 143 Potassium 3.9 Chloride 108 H Carbon Dioxide 28 BUN 46 H Creatinine 2.07 H Glucose 85 Calcium 8.4 L Liver Function 02/01/17 Range/Units 06:31 Total Bilirubin 0.9 (0.3-1.0) mg/dL AST 15 (13-39) Units/L ALT 15 (7-52) Units/L Alkaline Phosphatase 85 (34-104) Units/L Albumin 3.3 L (3.5-5.7) g/dL - ABG Interpretation ABG results: PT/INR, D-dimer PT 18.6 Seconds (9.4-12.1) H 02/01/17 06:31 Consult Discharge Plan - Plan Referrals: Dagoberto Blunt MD [Primary Care Provider] - (working on Placement) <Joel Guillory - Last Filed: 02/01/17 14:06> Date of Encounter: 02/01/17 - Constitutional Vitals: Temp Pulse Resp BP Pulse Ox 97.9 F 80 18 172/81 95 02/01/17 13:35 02/01/17 13:35 02/01/17 13:35 02/01/17 13:35 02/01/17 13:35 Internal Medicine: Result - Labs CBC & Chem 7: 02/01/17 06:31 02/01/17 06:31 Labs: Short CBC 02/01/17 Range/Units 06:31 WBC 7.1 (4.3-11.1) K/mcL Hgb 10.9 L (12.9-16.9) g/dL Hct 34.5 L (37.5-50.1) % Plt Count 211 (140-400) K/mcL Neutrophils # 5.2 (1.6-8.9) K/mcL BMP 02/01/17 06:31 Sodium 143 Potassium 3.9 Chloride 108 H Carbon Dioxide 28 BUN 46 H Creatinine 2.07 H Glucose 85 Calcium 8.4 L Liver Function 02/01/17 Range/Units 06:31 Total Bilirubin 0.9 (0.3-1.0) mg/dL AST 15 (13-39) Units/L ALT 15 (7-52) Units/L Alkaline Phosphatase 85 (34-104) Units/L Albumin 3.3 L (3.5-5.7) g/dL - ABG Interpretation ABG results: PT/INR, D-dimer PT 18.6 Seconds (9.4-12.1) H 02/01/17 06:31 - Attending Attestation I have independently seen and examined this patient on 02/01/17, and discussed plan of care with the patient and resident physicians 86 M, seen and examined at bedside, awaiting EGD for unexplained anemia He is admitted for acute on chronic systolic CHF. He also had JOANA on CKD, which is resolving He denies any new complains Physical exam: VSS, HEENT: Oral mucosa is moist and not cyanotic, not clinically pale, chest is CTAB, no added sounds, Abdomen is soft and not tender. Extremities with no pedal edema. Labs and Imaging reviewed. Plan is to follow EGD report, and resume coumadin if no bleeding or intervention , patient is otherwise stable and is for placement when medically ready Rest of details is as in resident physician's documentation
[2017-02-01] MEDS ORDERED: Simethicone 40 MG/0.6 ML MLS IR ONE (13:39)
[2017-02-01] MEDS ORDERED: Tetracaine/Benzocaine/Butamben 200MG/SPRAY (100SPY/BOT) MM ONE (13:40)
--- NOTE | 2017-02-01 13:40 | Anesthesia Evaluation PreOp ---
<Ervin Salas - Last Filed: 02/01/17 13:37> Date of Encounter: 02/01/17 Time of Encounter: 13:37 - Past History Planned Operation: EGD Cardiac History: CHF (acute exacerbation this admission), Angina, HTN, Hyperlipidemia, Cardiac Surgery (CABG with AVR), Pacemaker/ICD (pacer) Pulmonary History: Denies Any Significant HX SUPERINTENDENT History: Denies Any Significant HX Other Medical History: Renal (CKD 3) Anesthesia History: No Prior Anesthetic Complications, Past Anesthesia (lilli, CABG) Alcohol Use: none Drug use: none Medications and Allergies Aspirin 81 mg PO DAILY 11/04/14 [History] Atorvastatin [Lipitor] 40 mg PO HS 11/04/14 [History] Cholecalciferol (Vitamin D3) [Vitamin D3] 1,000 unit PO DAILY 11/04/14 [History] Isosorbide MONOnitrate (24 HR) [Imdur] 30 mg PO DAILY 11/04/14 [History] Metoprolol XL (24 HR) Succ [Toprol XL] 100 mg PO DAILY 11/04/14 [History] NIFEdipine [Nifedical Xl] 60 mg PO DAILY 11/04/14 [History] Lactobacillus Acidophilus [Acidophilus] 1 each PO DAILY 10/24/15 [History] Acetaminophen [Tylenol] 500 mg PO Q6HR PRN #10 tablet 06/14/16 [Rx] Furosemide [Lasix] 20 mg PO DAILY 01/27/17 [History] Lisinopril [Zestril] 10 mg PO DAILY 01/27/17 [History] Sertraline [Zoloft] 25 mg PO DAILY 01/27/17 [History] Tamsulosin [Flomax] 0.4 mg PO DAILY 01/27/17 [History] Warfarin [Coumadin] 1.25 mg PO [id number] 01/27/17 [History] Warfarin [Coumadin] 2.5 mg PO SUTH 01/27/17 [History] traZODone [TraZODone] 50 mg PO HS 01/27/17 [History] 3 Allergy/AdvReac Type Severity Reaction Status Date / Time No Known Allergies Allergy Unverified 10/04/16 10:10 - Meds/Allergy Pre-op Review Medications Reviewed: Yes Allergies Reviewed: Yes Beta Blockers on Current Med List: Yes If Beta Blockers taken, Date/Time (Last Dose taken): today 919 Anesthesia Results - Labs 02/01/17 06:31 02/01/17 06:31 - Imaging EKG: report reviewed (ELECTRONIC VENTRICULAR PACEMAKER ABNORMAL RHYTHM ECG) Additional studies: echo: Impressions: LVEF 45-50%. Moderate concentric left ventricular hypertrophy. Low normal to mildly reduced LV systolic function. Atypical septal motion consistent with paced rhythm. Moderate left ventricular diastolic dysfunction. Normal right ventricular structure and function. Bioprosthetic aortic valve appears well seated in the LVOT. Leaflets were not well visualized. No significant prosthetic stenosis. Mean gradient 16 mmHg. Mild aortic regurgitation, unclear if valvular or perivalvular. Moderate pulmonary hypertension. Estimated RVSP is 50 mmHg. Large pleural effusion noted. A device lead was visualized in the right atrium and right ventricle. Anesthesia Exam Selected Entries 02/01/17 13:35 Temperature 97.9 F Pulse Rate 80 Respiratory Rate 18 Blood Pressure 172/81 O2 Sat by Pulse Oximetry 95 Weight: 75kg - HEENT Pupil (Motor): EOMI Mallampati: III Teeth: Poor dentition Oral Opening: Less than or equal to 3 - SUPERINTENDENT LOC: Oriented SUPERINTENDENT Motor: Normal RUE, Normal LUE, Normal RLE, Normal LLE, Normal Face SUPERINTENDENT Sensory: Normal: RUE, LUE, RLE, LLE, Face - Cardiac Rhythm: Regular Murmur: None - Pulmonary Breath Sounds: bilateral Clear Respiratory Effort: Symmetrical Anesthesia Assess/Plan ASA Score: 4 Modified [place] Scale for Level of Consciousness: Cooperative, oriented, and tranquil Anesthetic Plan: MAC Monitoring Plan: Standard Monitors Recovery Plan: Other (agrees to MAC) <Flaquito Ho - Last Filed: 02/01/17 14:01> Date of Encounter: 02/01/17 Anesthesia Results - Labs 02/01/17 06:31 02/01/17 06:31
[2017-02-01] MEDS ORDERED: *HR* Propofol 200 MG/20 ML VIAL IVP ONE (13:51)
[2017-02-01] MEDS ORDERED: Lidocaine -MPF 2% 2 ML VIAL ONE (14:08)
--- NOTE | 2017-02-01 14:11 | Anesthesia Evaluation Post Op ---
Date of Encounter: 02/01/17 Time of Encounter: 14:25 - Lungs Lungs: Clear Ascult./Percussion - Airway Airway: Non-obstructed - Cardiovascular Regular Rate (paced) - Mental Status Mental Status: Alert & Oriented, Answers Appropriately - Pain Pain Scale: 0 Pain Scale used: Numeric (1 - 10) - Nausea Vomiting Nausea Vomiting: Not Present - Hydration Hydration: NPO Notes: 02/01/17 14:11 awake, VSS, discharge to floor
[2017-02-01] MEDS ORDERED: Tetracaine/Benzocaine/Butamben 200MG/SPRAY (100SPY/BOT) ONE (14:12)
[2017-02-01] MEDS: NIFEdipine XL (24 HR) 60 MG TAB.ER.24 PO SCH (16:42)
[2017-02-01] MEDS: Furosemide 20 MG TABLET PO SCH (16:42)
[2017-02-01] MEDS ORDERED: *HR* Warfarin 3 MG TABLET PO ONE (18:00)
--- NOTE | 2017-02-01 21:28 | Nephrology Progress Note ---
Date of Encounter: 02/01/17 Time of Encounter: 21:26 - Assessment and Plan (1) Acute kidney injury superimposed on chronic kidney disease Current Visit: Yes Status: Acute Patient with JOANA on CKD. Renal function stable. Avoid nephrotoxins. Adjust medications for renal function. Renal function improving. (2) Anemia Current Visit: Yes Status: Acute Follow hemoglobin. GI consulted and endoscopy performed. Transfuse as needed. Qualifiers: Anemia type: iron deficiency Iron deficiency anemia type: chronic blood loss Qualified Code(s): D50.0 - Iron deficiency anemia secondary to blood loss (chronic) (3) HTN (hypertension) Current Visit: Yes Status: Chronic titrate antihypertensive medications as needed. BP better this evening. Qualifiers: Hypertension type: essential hypertension Qualified Code(s): I10 - Essential (primary) hypertension (4) Stage III chronic kidney disease Current Visit: Yes Status: Chronic (5) Diastolic dysfunction Current Visit: Yes Status: Acute per cardiology. control hypertension. (6) Pulmonary hypertension Current Visit: Yes Status: Acute per primary team and cardiology. (7) Elevated troponin Current Visit: Yes Status: Acute Per cardiology. Medical management. No chest pain. Subjective Principal diagnosis: Elevated troponin Interval history: Mr. St lying in bed. His family is at his bedside. He has no new complaint. Objective - Vital Signs Vital signs: Vital Signs Temp Pulse Resp BP Pulse Ox 02/01/17 20:56 16 98 02/01/17 20:20 97.6 F 72 16 116/68 94 02/01/17 18:52 146/58 02/01/17 17:38 97.5 F L 59 18 196/81 94 02/01/17 16:55 97.5 F L 60 18 208/91 94 02/01/17 15:20 97.4 F L 62 16 176/71 93 02/01/17 15:05 97.5 F L 71 16 178/72 94 02/01/17 14:50 97.5 F L 60 16 171/69 94 02/01/17 14:36 97.6 F 61 18 194/77 97 02/01/17 13:35 97.9 F 80 18 172/81 95 02/01/17 10:52 97.5 F L 60 16 189/69 94 02/01/17 07:24 97.4 F L 61 16 155/73 99 02/01/17 02:44 97.6 F 60 16 150/65 99 01/31/17 23:10 98.0 F 63 16 121/61 96 Intake and Output 02/01/17 02/01/17 02/01/17 07:59 15:59 23:59 Intake Total 0 / 0 Balance 0 / 0 Intake: Oral 0 / 0 Other: Stool Size Small Stool Consistency soft Stool Characteristics Normal for Patient # Voids 1 # Bowel Movements 1 Weight 74.956 kg Patient Weight 02/01/17 23:59 Weight 74.956 kg - General Appearance General appearance: Present: well-developed, well-nourished EENT: Present: ATNC Cardiology: Present: regular rate - Lab 02/01/17 06:31 02/01/17 06:31 Most recent lab results Calcium 8.4 mg/dL (8.6-10.3) L 02/01/17 06:31 Phosphorus 4.7 mg/dL (2.7-4.5) H 01/31/17 04:09 Magnesium 1.6 mg/dL (1.6-2.6) 01/28/17 03:54 Urine Creatinine 283 mg/dL 01/30/17 19:13 Urine Total Protein 155 mg/dL 01/30/17 19:13 Consult Discharge Plan - Plan Referrals: Dagoberto Blunt MD [Primary Care Provider] - (working on Placement)
[2017-02-01] MEDS: traZODone 50 MG TABLET PO SCH (21:29)
[2017-02-02] MEDS: Acetaminophen 325 MG TABLET PO PRN (00:48)
[2017-02-02 06:31] LABS: Hematocrit 33.9 % (37.5-50.1); Hemoglobin 10.9 g/dL (12.9-16.9); Mean Corpuscular HGB Conc 32.2 g/dL (31.6-35.5); Mean Corpuscular Hemoglobin 28.4 pg (28.0-33.3); Mean Corpuscular Volume 88.3 fL (83.0-100.0); Mean Platelet Volume 10.3 fL (9.4-12.4); Platelet Count 207 K/mcL (140-400); Red Blood Count 3.84 M/mcL (4.19-5.50); Red Cell Distribution Width 15.2 % (11.5-14.5)
[2017-02-02 06:34] LABS: INR 1.4; Prothrombin Time 14.9 Seconds (9.4-12.1)
[2017-02-02 06:45] LABS: Calcium 8.6 mg/dL (8.6-10.3); Potassium 3.6 mEq/L (3.5-5.1)
[2017-02-02] MEDS ORDERED: Furosemide 20 MG TABLET PO SCH (09:00)
[2017-02-02] MEDS: Furosemide 20 MG TABLET PO SCH (09:41)
[2017-02-02] MEDS: NIFEdipine XL (24 HR) 60 MG TAB.ER.24 PO SCH (09:41)
[2017-02-02] MEDS: Lactobacillus 1 EACH CAP.SPRINK PO SCH (09:41)
[2017-02-02] MEDS: Cholecalciferol (D-3) 1,000 UNIT TABLET PO SCH (09:41)
[2017-02-02] MEDS: Aspirin Enteric Coated 81 MG Tablet PO SCH (09:42)
[2017-02-02] MEDS: Isosorbide MONOnitrate (24 HR) 30 MG TAB.ER.24H PO SCH (09:42)
[2017-02-02] MEDS: Metoprolol XL (24 HR) Succ 50 MG TAB.ER.24H PO SCH (09:42)
--- NOTE | 2017-02-02 10:05 | Discharge Summary ---
<Yasir Richmond - Last Filed: 02/02/17 09:59> Date of Encounter: 02/02/17 Time of Encounter: 09:59 - Discharge Diagnosis (1) Acute exacerbation of CHF (congestive heart failure) Priority: Primary Status: Resolved Comments: Resolved. Continue home dose Lasix 20 mg daily. Qualifiers: Congestive heart failure type: unspecified congestive heart failure type Qualified Code(s): I50.9 - Heart failure, unspecified (2) Anemia Priority: Secondary Status: Acute Comments: Stable. No active bleeding found on EGD. Qualifiers: Anemia type: iron deficiency Iron deficiency anemia type: chronic blood loss Qualified Code(s): D50.0 - Iron deficiency anemia secondary to blood loss (chronic) (3) Elevated troponin Priority: Secondary Status: Acute Comments: Cardiology states elevated from unlikely ACS. Patient will be medically managed with aspirin, statin, Imdur, metoprolol, lisinopril. (4) Acute kidney injury superimposed on chronic kidney disease Priority: Secondary Status: Acute Comments: Resolved. Due to over diuresis. (5) HTN (hypertension) Priority: Secondary Status: Chronic Comments: Controlled. Continue home medications. Qualifiers: Hypertension type: essential hypertension Qualified Code(s): I10 - Essential (primary) hypertension (6) Gastritis Priority: Secondary Status: Acute Comments: EGD showed medium-sized hiatal hernia, gastritis. Patient started on omeprazole. No active bleeding found. Qualifiers: Gastritis type: unspecified gastritis Chronicity: chronic Gastritis bleeding: without bleeding Qualified Code(s): K29.50 - Unspecified chronic gastritis without bleeding (7) Hx pulmonary embolism Priority: Secondary Status: Acute Comments: hx of PE on coumadin was d/c due to suspected upper GI bleed. EGD did not show any active bleeding. Hemoglobin has been stable. Patient's Coumadin has been restarted. He will be bridged with Lovenox. Lovenox dosing will be daily secondary to CKD (8) DVT prophylaxis Priority: Secondary Status: Acute - Discharge Medications Prescriptions: Enoxaparin [Lovenox] 80 mg SQ DAILY #5 syr Omeprazole [PriLOSEC] 40 mg PO DAILY@0730 #30 capsule.dr Home Medications: Aspirin 81 mg PO DAILY 11/04/14 [History] Atorvastatin [Lipitor] 40 mg PO HS 11/04/14 [History] Cholecalciferol (Vitamin D3) [Vitamin D3] 1,000 unit PO DAILY 11/04/14 [History] Isosorbide MONOnitrate (24 HR) [Imdur] 30 mg PO DAILY 11/04/14 [History] Metoprolol XL (24 HR) Succ [Toprol XL] 100 mg PO DAILY 11/04/14 [History] NIFEdipine [Nifedical Xl] 60 mg PO DAILY 11/04/14 [History] Lactobacillus Acidophilus [Acidophilus] 1 each PO DAILY 10/24/15 [History] Acetaminophen [Tylenol] 500 mg PO Q6HR PRN #10 tablet 06/14/16 [Rx] Furosemide [Lasix] 20 mg PO DAILY 01/27/17 [History] Lisinopril [Zestril] 10 mg PO DAILY 01/27/17 [History] Sertraline [Zoloft] 25 mg PO DAILY 01/27/17 [History] Tamsulosin [Flomax] 0.4 mg PO DAILY 01/27/17 [History] Warfarin [Coumadin] 1.25 mg PO MOTUWEFRSA 01/27/17 [History] Warfarin [Coumadin] 2.5 mg PO SUTH 01/27/17 [History] traZODone [TraZODone] 50 mg PO HS 01/27/17 [History] Enoxaparin [Lovenox] 80 mg SQ DAILY #5 syr 02/02/17 [Rx] Omeprazole [PriLOSEC] 40 mg PO DAILY@0730 #30 capsule. 02/02/17 [Rx] Allergies/Adverse Reactions: 3 Allergy/AdvReac Type Severity Reaction Status Date / Time No Known Allergies Allergy Unverified 10/04/16 10:10 Date of admission: 01/27/17 15:24 Primary care physician: Dagoberto Blunt MD Consults: 01/30/17 11:58 Consult to Nephrology [CONS] Routine Consulting Provider: Kidney Opal/CODY/RASHID/IRVING Reason for Consult: JOANA likely drug induced. Spoke to Call Completed: Yes 01/31/17 15:03 Consult to Gastroenterology [CONS] Routine Consulting Provider: [facility] [place] Reason for Consult: Drop in Hb to rule out GIbleed. Call Completed: Yes Discharging clinician: Yasir Pankajkuma Basilio Anticipated date of discharge: 02/02/17 - Patient Status Disposition: Transfer Inpatient Rehab Fac Condition: Fair Functional capacity at discharge: independent ambulation (With assistance) Overall status at discharge: patient is progressing back to baseline - Discharge Instructions Instructions: Myocardial Infarction (DC), Heart Failure (DC) Follow Up With: Dagoberto Blunt MD [Primary Care Provider] - (Patient will follow up with ECF PCP) Flavio Beth MD [Partnered Physician] - (hospital follow up JOANA) - Diet and Activity Activity: as per physical therapy Diet: low fat, low cholesterol, low salt diet Hospital course: Mr. St is a 86 year old male admitted for chest pain and shortness of breath. Pain did not alleviating or aggravating factors. Pain did not radiate. Patient had substernal chest pain with elevated troponin. BNP was elevated at 2796. Chest x-ray showed bilateral pleural effusions. Cardiology was on board. Patient was found to be in CHF exacerbation and diuresis with IV Lasix. Repeat echocardiogram showed ejection fraction of 45-50% which was decreased from last echocardiogram in 2014 (EF65%). After 48 hours of diuresis patient's renal function became worse. Lasix was discontinued. He also had a drop in his hemoglobin from 12 g to 10 g. Patient had reported melanotic stools upon admission. Patient has a history of PE, atrial fibrillation and is anticoagulated on Coumadin. This was discontinued. And his INR was reversed with vitamin K. Cardiology decided that patient will be medically managed and did not undergo cardiac catheterization. Nephrology was consulted due to acute kidney injury injury. After Lasix was held patient's renal function improved. Patient underwent EGD to rule out upper GI bleed. EGD showed hiatal hernia, gastritis, and a esophageal nodule that was biopsied. There is no active bleeding. Patient's hemoglobin has remained stable for the past 72 hours. He was hemodynamically stable. He since Coumadin was restarted. He will be bridged with Lovenox. Plan: Patient will continue his home dose of Lasix. He is hemodynamically stable. He is able to tolerate his diet. PT/OT recommend patient go to rehabilitation facility. He will be discharged to [facility]. - Time Spent with Patient Total time spent providing and/or coordinating discharge services: - Constitutional Vitals: Temp Pulse Resp BP Pulse Ox 97.5 F L 93 16 139/67 94 02/02/17 07:08 02/02/17 07:08 02/02/17 07:08 02/02/17 07:08 02/02/17 07:08 General appearance: Present: cooperative, A&O X 3, pleasant, no acute distress, answers questions appropriately - Other Additional findings: General: Less than without distress HEENT: Head atraumatic, normocephalic, EOMI, PERRL, neck nontender to palpation , absent lymphadenopathy, Moist Mucous Membranes, Heart: Regular rate and rhythm with no murmur Lungs: Clear to auscultation bilaterally Abdomen: Soft nontender, nondistended positive bowel sounds Skin: warm and dry Extremities: Absent pedal edema, Neuro: Cranial nerves II through XII intact, UE and LE sensation equal bilaterally, UE and LEstrength 5/5, alert oriented 3, Vascular: Pedal and radial pulses 2 out of 4 <Joel Guillory - Last Filed: 02/02/17 13:00> Date of Encounter: 02/02/17 Date of admission: 01/27/17 15:24 Primary care physician: Dagoberto Blunt MD Consults: 01/30/17 11:58 Consult to Nephrology [CONS] Routine Consulting Provider: Kidney Opal/CODY/RASHID/IRVING Reason for Consult: JOANA likely drug induced. Spoke to Call Completed: Yes 01/31/17 15:03 Consult to Gastroenterology [CONS] Routine Consulting Provider: Gastroenterology [place] Reason for Consult: Drop in Hb to rule out GIbleed. Call Completed: Yes Hospital course: Mr. St is a 86 year old male - Time Spent with Patient Total time spent providing and/or coordinating discharge services: - Constitutional Vitals: Temp Pulse Resp BP Pulse Ox 97.5 F L 93 16 139/67 96 02/02/17 07:08 02/02/17 07:08 02/02/17 07:08 02/02/17 07:08 02/02/17 11:36 - Attending Attestation I have independently seen and examined this patient on 02/02/17, and discussed plan of care with the patient and resident physicians 86 M, seen and examined at bedside, s/p EGD with evidence of gastritis, and a polyp that was excised. He was admitted for acute on chronic systolic CHF. He also had JOANA on CKD, which is resolving He denies any new complains Of note, he has been requiring 2L of oxygen by nasal canula, he was not on hoe O2 He will need to be qualified for home O2 prior to discharge. Physical exam: VSS, HEENT: Oral mucosa is moist and not cyanotic, not clinically pale, chest is CTAB, no added sounds, Abdomen is soft and not tender. Extremities with no pedal edema. Labs and Imaging reviewed. Plan is discharge to SNF if approved, with lovenox bridge with coumadin, as well as Home O2 if he qualifies Rest of details is as in resident physician's documentation
--- NOTE | 2017-02-02 10:09 | Nephrology Progress Note ---
Date of Encounter: 02/02/17 Time of Encounter: 10:08 - Assessment and Plan (1) Acute kidney injury superimposed on chronic kidney disease Current Visit: Yes Status: Acute JOANA on CKD stage III. Creatinine improved today, back to baseline. Agree with restarting home dose of Lasix. Continue follow-up as an outpatient. (2) HTN (hypertension) Current Visit: Yes Status: Chronic Improved today. Continue current treatment. Qualifiers: Hypertension type: essential hypertension Qualified Code(s): I10 - Essential (primary) hypertension (3) Elevated troponin Current Visit: Yes Status: Acute Further management per primary service cardiology. (4) Anemia Current Visit: Yes Status: Acute Hemoglobin stable at 10.9. Status post endoscopy. Further management per primary team. Qualifiers: Anemia type: iron deficiency Iron deficiency anemia type: chronic blood loss Qualified Code(s): D50.0 - Iron deficiency anemia secondary to blood loss (chronic) (5) Diastolic dysfunction Current Visit: Yes Status: Acute (6) Pulmonary hypertension Current Visit: Yes Status: Acute Subjective Principal diagnosis: Elevated troponin Interval history: Patient seen and examined at bedside. Patient states that he feels pretty good today. He denies any pain, shortness of breath, lower extremity swelling, decreased appetite, nausea, vomiting. He reports good urine output. Objective - Vital Signs Vital signs: Vital Signs Temp Pulse Resp BP Pulse Ox 02/02/17 07:08 97.5 F L 93 16 139/67 94 02/02/17 04:42 98.2 F 92 18 91/47 94 02/02/17 01:14 98.2 F 62 18 122/54 94 02/01/17 20:56 16 98 02/01/17 20:20 97.6 F 72 16 116/68 94 02/01/17 18:52 146/58 02/01/17 17:38 97.5 F L 59 18 196/81 94 02/01/17 16:55 97.5 F L 60 18 208/91 94 02/01/17 15:20 97.4 F L 62 16 176/71 93 02/01/17 15:05 97.5 F L 71 16 178/72 94 02/01/17 14:50 97.5 F L 60 16 171/69 94 02/01/17 14:36 97.6 F 61 18 194/77 97 02/01/17 13:35 97.9 F 80 18 172/81 95 02/01/17 10:52 97.5 F L 60 16 189/69 94 Intake and Output 02/01/17 02/02/17 02/02/17 23:59 07:59 15:59 Intake Total 240 / 240 Output Total 0 / 0 Balance 0 / 0 240 / 240 Intake: Oral 240 / 240 Output: Urine 0 / 0 Other: Meal Breakfast Percent of Meal Consumed 60% Weight 74.48 kg Patient Weight 02/02/17 23:59 Weight 74.48 kg - General Appearance General appearance: Present: well-developed, well-nourished, appears started age EENT: Present: ATNC, mucous membranes moist Neck: Present: supple Respiratory: Present: clear Cardiology: Present: mid-systolic murmur, no edema, regular rate, regular rhythm , normal S1, normal S2 Gastrointestinal: Present: normoactive bowel sounds, no tenderness Integumentary: Present: no rash, warm and dry Neurologic: Present: no focal deficit, alert and oriented x3 Musculoskeletal: Present: no deformities, no erythema, no cyanosis Psychiatric: Present: mood/affect appropriate - Lab 02/02/17 05:47 02/02/17 05:47 Most recent lab results Calcium 8.6 mg/dL (8.6-10.3) 02/02/17 05:47 Phosphorus 4.7 mg/dL (2.7-4.5) H 01/31/17 04:09 Magnesium 1.6 mg/dL (1.6-2.6) 01/28/17 03:54 Urine Creatinine 283 mg/dL 01/30/17 19:13 Urine Total Protein 155 mg/dL 01/30/17 19:13 Consult Discharge Plan - Plan Referrals: Flavio Beth MD [Partnered Physician] - (hospital follow up JOANA) Dagoberto Blunt MD [Primary Care Provider] - (Patient will follow up with [facility] PCP) Prescriptions: Enoxaparin [Lovenox] 80 mg SQ DAILY #5 syr Omeprazole [PriLOSEC] 40 mg PO DAILY@0730 #30 capsule.
[2017-02-02] MEDS ORDERED: *HR* Enoxaparin 80 MG/0.8 ML SYRINGE SQ SCH (14:00)
--- NOTE | 2017-02-02 14:18 | Physician Discharge Referral ---
ExtendedCare Referral Info Transfer To: [facility] Provider in Charge: Past[place] Provider in Charge after Transfer: PCP Institutional Level of Care: Intermediate - Diagnosis (1) Acute exacerbation of CHF (congestive heart failure) Priority: Primary Status: Resolved (2) Anemia Priority: Secondary Status: Acute (3) Elevated troponin Priority: Secondary Status: Acute (4) Acute kidney injury superimposed on chronic kidney disease Priority: Secondary Status: Acute (5) HTN (hypertension) Priority: Secondary Status: Chronic (6) Gastritis Priority: Secondary Status: Acute (7) Hx pulmonary embolism Priority: Secondary Status: Acute (8) DVT prophylaxis Priority: Secondary Status: Acute Prognosis: Good Aware of Diagnosis: Patient Aware of Prognosis: Patient - Transfer Medications Prescriptions: Enoxaparin [Lovenox] 80 mg SQ DAILY #5 syr RX: Omeprazole [PriLOSEC] 40 mg PO DAILY@0730 #30 capsule.dr Home Medications: RX: Aspirin 81 mg PO DAILY 11/04/14 [History] RX: Atorvastatin [Lipitor] 40 mg PO HS 11/04/14 [History] RX: Cholecalciferol (Vitamin D3) [Vitamin D3] 1,000 unit PO DAILY 11/04/14 [ History] RX: Isosorbide MONOnitrate (24 HR) [Imdur] 30 mg PO DAILY 11/04/14 [History] RX: Metoprolol XL (24 HR) Succ [Toprol XL] 100 mg PO DAILY 11/04/14 [History] RX: NIFEdipine [Nifedical Xl] 60 mg PO DAILY 11/04/14 [History] RX: Lactobacillus Acidophilus [Acidophilus] 1 each PO DAILY 10/24/15 [History] RX: Acetaminophen [Tylenol] 500 mg PO Q6HR PRN #10 tablet 06/14/16 [Rx] RX: Furosemide [Lasix] 20 mg PO DAILY 01/27/17 [History] RX: Lisinopril [Zestril] 10 mg PO DAILY 01/27/17 [History] RX: Sertraline [Zoloft] 25 mg PO DAILY 01/27/17 [History] RX: Tamsulosin [Flomax] 0.4 mg PO DAILY 01/27/17 [History] RX: Warfarin [Coumadin] 1.25 mg PO MOTUWEFRSA 01/27/17 [History] RX: Warfarin [Coumadin] 2.5 mg PO SUTH 01/27/17 [History] RX: traZODone [TraZODone] 50 mg PO HS 01/27/17 [History] Enoxaparin [Lovenox] 80 mg SQ DAILY #5 syr 02/02/17 [Rx] RX: Omeprazole [PriLOSEC] 40 mg PO DAILY@0730 #30 capsule. 02/02/17 [Rx] Allergies/Adverse Reactions: 3 Allergy/AdvReac Type Severity Reaction Status Date / Time No Known Allergies Allergy Unverified 10/04/16 10:10 - Respiratory Orders None Smoking Cessation: Smoking cessation has been advised. For more information, call the [place] Tobacco Quit Line at 4-337-FHCF-NOW. - Advance Directives Code Status: DNR-Arrest/Don't Intubate - Mobility Orders Ambulate (with assist) - Rehabiliation Orders Rehab Potential: Good Rehab Orders: Evaluation for Physical Therapy, Evaluation for Occupational Therapy - Treatments Skin tear care topically daily PRN per policy - Diet Orders Cardiac CERTIFICATION: I certify that the transfer of the above named patient to an Extended Care Facility is necessary for the continuing treatment of the diagnosis listed. The above information is true and accurate reflection of patient's current condition. Confidential - Redisclosure prohibited without a patient's written consent.
[2017-02-02 15:09] VITALS: BP 123/57
[2017-02-02] MEDS ORDERED: *HR* Warfarin 2.5 MG TABLET PO ONE (18:00)
== END 2017-02-02 17:15 | DRG 291 ==
LOC: 2ANU 09:59 → EMEROO 09:59 → 2ANU 13:30 → SUATTDRO 15:24
PROVIDERS: ADMIT Nurse Practitioner Family; ATTEND Internal Medicine
PROC: ENDOEBX (2017-02-01 13:00)

== ENCOUNTER 2017-03-12 17:25 | Inpatient (IN) ==
[2017-03-12] MEDS ORDERED: Naloxone 0.4 MG/ML INJ IVP PRN (20:20)
--- NOTE | 2017-03-12 20:37 | Internal Med History&Physical ---
Date of Encounter: 03/12/17 Time of Encounter: 19:45 Assessment and Plan (1) CKD (chronic kidney disease) Current visit: Yes Status: Acute Cr is at around baseline. Qualifiers: Chronic kidney disease stage: stage 3 (moderate) Qualified Code(s): N18.3 - Chronic kidney disease, stage 3 (moderate) (2) DVT prophylaxis Current visit: No Status: Acute Pt is on coumadin INR therapeutic (3) Elevated troponin Current visit: No Status: Acute Pt has chronic troponin elevation. Denies chest pain. - Place pt on cardiac monitoring - Track 3 sets of troponin. (4) Hx pulmonary embolism Current visit: No Status: Acute On coumadin (5) Pulmonary hypertension Current visit: No Status: Acute (6) CAD (coronary artery disease) Current visit: No Status: Chronic No chest pain, cont home med asa, BB, imdur, and liptor Qualifiers: Coronary Disease-Associated Artery/Lesion type: [place] artery [place] vs. transplanted heart: [place] heart Associated angina: angina presence unspecified Qualified Code(s): I25.10 - Atherosclerotic heart disease of [place] coronary artery without angina pectoris (7) HTN (hypertension) Current visit: No Status: Chronic Cont home med Qualifiers: Hypertension type: essential hypertension Qualified Code(s): I10 - Essential (primary) hypertension (8) Acute exacerbation of CHF (congestive heart failure) Current visit: No Status: Resolved Pt has hx of CHF (LVEF 45-50%, moderate diastolic dysfunction), increased SOB with leg swelling, CXR shows pulmonary edema, consider CHF exacerbation. - Strict i/o, angella daily - Cardiac diet with fluid restriction 1500ml per day - Lasix 40mg iv daily - Pt is on BB and ACEI Qualifiers: Congestive heart failure type: combined Qualified Code(s): I50.43 - Acute on chronic combined systolic (congestive) and diastolic (congestive) heart failure Internal Medicine - H&P: HPI Chief complaint: SOB Admitted From: Home Plans for Post Hospital Care: Home History of present illness: Mr. St is a 86 year old male with Hx of CHF, HTN, s/p AVR, Hx of PE, CAD s/p CABG. s/p PPM, present to ER for weakness and increased SOB since yesterday. Pt denies runny nose. Mild nonproductive cough and mild sore throat. Pt has exertional intolerance. No sure if having fever, has some subjective cold. Denies chest pain, nausea, diarrhea, or dysuria. Denies ABD pain. In [place] ER, CXR shows pulmonary edema and elevated troponin. Pt was transferred to our hospital for further management. I have discussed with pt regarding CODE STATUS, he clearly told me he doesn't want CPR on cardiac arrest but accept intubation if necessary. DNRCCA placed. Past Med Surg Social Fam HX - Past Medical History Medical history: coronary artery disease, hyperlipidemia, hypertension Psychiatric history: no psych history - Past Surgical History Surgical History: cholecystectomy - Social History Smoking Status: Never smoker Smokeless Tobacco Status: No Alcohol use: none Drug use: none - Family History Father Family Member Ethnicity: Non- Living Status: Hx Family Cardiac Disorders: Yes (DVT) Sister Family Member Ethnicity: Non- Living Status: Still Living Hx Family Cardiac Disorders: Yes (Stroke) Mother Adopted: No Family Member Ethnicity: Non- Living Status: Hx Family Cardiac Disorders: Yes Hx Family Respiratory Disorders: No Hx Family Cancer: Yes (Lung) Hx Family GI Disorders: No Hx Family Endocrine Disorder: Yes Hx Family Neuromuscular Disorders: No Hx Family Neurologic Disorders: No Hx Family HEENT Disorders: No Hx Family Autoimmune Disorders: No Internal Medicine - H&P: Meds Aspirin 81 mg PO DAILY 11/04/14 [History] Atorvastatin [Lipitor] 40 mg PO HS 11/04/14 [History] Cholecalciferol (Vitamin D3) [Vitamin D3] 1,000 unit PO DAILY 11/04/14 [History] Isosorbide MONOnitrate (24 HR) [Imdur] 30 mg PO DAILY 11/04/14 [History] Metoprolol XL (24 HR) Succ [Toprol XL] 100 mg PO DAILY 11/04/14 [History] NIFEdipine [Nifedical Xl] 60 mg PO DAILY 11/04/14 [History] Lactobacillus Acidophilus [Acidophilus] 1 each PO DAILY 10/24/15 [History] Acetaminophen [Tylenol] 500 mg PO Q6HR PRN #10 tablet 06/14/16 [Rx] Furosemide [Lasix] 20 mg PO DAILY 01/27/17 [History] Lisinopril [Zestril] 10 mg PO DAILY 01/27/17 [History] Sertraline [Zoloft] 25 mg PO DAILY 01/27/17 [History] Tamsulosin [Flomax] 0.4 mg PO DAILY 01/27/17 [History] Warfarin [Coumadin] 1.25 mg PO MOTUWEFRSA 01/27/17 [History] Warfarin [Coumadin] 2.5 mg PO SUTH 01/27/17 [History] traZODone [TraZODone] 50 mg PO HS 01/27/17 [History] Omeprazole [PriLOSEC] 40 mg PO DAILY@0730 #30 capsule. 02/02/17 [Rx] cloNIDine HCl [CloNIDine HCl] 0.1 mg PO BID 03/12/17 [History] 3 Allergy/AdvReac Type Severity Reaction Status Date / Time No Known Allergies Allergy Unverified 10/04/16 10:10 All Systems PM: A 10-system review of systems was performed and is negative for pertinent findings except as documented above in the HPI. - Constitutional Vitals: Temp Pulse Resp BP Pulse Ox 97.7 F 61 16 167/69 94 03/12/17 18:48 03/12/17 18:48 03/12/17 18:48 03/12/17 18:48 03/12/17 18:48 General appearance: Present: A&O X 3, no acute distress, answers questions appropriately - Head Head exam: Present: atraumatic, normocephalic - Eye Eye exam: Present: PERRL, conjuntiva pink, sclera anicteric Pupils: Present: PERRL - Neck Neck exam general surgery: Present: supple, trachea midline. Absent: lymphadenopathy - Respiratory Respiratory exam: Present: CTAB. Absent: accessory muscle use, rales, rhonchi, wheezes - Cardiovascular Cardiovascular exam: Present: RRR, +S1, +S2. Absent: diastolic murmur, gallop, rubs, systolic murmur - GI/Abdominal GI/Abdominal exam: Present: normal bowel sounds, soft, no peritoneal signs. Absent: distended, tenderness - Extremities Exam Extremities exam: Present: pedal edema (B/L mild pedal edema), warm, radial pulses palpable and symmetrical. Absent: calf tenderness, cyanotic - Neurological Exam Neurological exam: Present: CN II-XII intact, oriented X3, no focal deficits. Absent: pronater drift, facial droop, speech deficit - Skin Skin exam: Present: dry, intact Internal Med - H&P Results - EKG Data -: EKG Interpreted by Myself (EKG shows RBBB, II, III, AVF, V3-V5 T inversion unchanged from 2016 EKG) EKG shows normal: sinus rhythm
[2017-03-12] MEDS: cloNIDine HCl 0.1 MG TABLET PO SCH (22:21)
[2017-03-12] MEDS: traZODone 50 MG TABLET PO SCH (22:21)
[2017-03-13 02:43] LABS: Basophils % 0.1 %; Eosinophils % 0.1 %; Hematocrit 34.9 % (37.5-50.1); Hemoglobin 11.3 g/dL (12.9-16.9); Immature Granulocytes % 0.3 % (0-4); Lymphocytes # 0.7 K/mcL (0.6-4.6); Lymphocytes % 5.5 %; Mean Corpuscular HGB Conc 32.4 g/dL (31.6-35.5); Mean Corpuscular Hemoglobin 28.4 pg (28.0-33.3); Mean Corpuscular Volume 87.7 fL (83.0-100.0); Mean Platelet Volume 9.8 fL (9.4-12.4); Monocytes # 0.7 K/mcL (0.0-1.3); Monocytes % 5.6 %; Neutrophils # 10.6 K/mcL (1.6-8.9); Platelet Count 159 K/mcL (140-400); Red Blood Count 3.98 M/mcL (4.19-5.50); Red Cell Distribution Width 15.3 % (11.5-14.5); Segmented Neutrophils % 88.4 %
[2017-03-13 02:49] LABS: INR 2.8; Prothrombin Time 30.5 Seconds (9.4-12.1)
[2017-03-13 03:15] LABS: Calcium 8.7 mg/dL (8.6-10.3); Magnesium 1.8 mg/dL (1.6-2.6); Potassium 3.4 mEq/L (3.5-5.1)
[2017-03-13] MEDS: Aspirin 81 MG TAB.CHEW PO SCH (09:50)
[2017-03-13] MEDS: NIFEdipine XL (24 HR) 60 MG TAB.ER.24 PO SCH (09:50)
[2017-03-13] MEDS: Metoprolol XL (24 HR) Succ 50 MG TAB.ER.24H PO SCH (09:50)
[2017-03-13] MEDS: Furosemide 40 MG/4 ML VIAL IVP SCH (09:50)
[2017-03-13] MEDS: Isosorbide MONOnitrate (24 HR) 30 MG TAB.ER.24H PO SCH (09:50)
[2017-03-13] MEDS: Lactobacillus 1 EACH CAP.SPRINK PO SCH (09:50)
[2017-03-13] MEDS: Cholecalciferol (D-3) 1,000 UNIT TABLET PO SCH (09:50)
[2017-03-13] MEDS: cloNIDine HCl 0.1 MG TABLET PO SCH ×2 (09:50→21:03)
[2017-03-13] MEDS ORDERED: Warfarin perPT PO PRN (18:00)
[2017-03-13] MEDS ORDERED: *HR* Warfarin 2.5 MG TABLET PO ONE (18:00)
--- NOTE | 2017-03-13 19:24 | Internal Med Progress Note ---
Date of Encounter: 03/13/17 Time of Encounter: 15:00 - Assessment and plan (1) Acute exacerbation of CHF (congestive heart failure) Current Visit: Yes Status: Acute Assessment and plan: Patient has a history of CHF last echo completed in January 2017 showed EF of 45-50% with moderate diastolic dysfunction. He has been expressing increased breath as lap as well as lower leg swelling we will continue with IV Lasix 40 mg daily Strict MATIAS daily weights Work restrictions 1500 mL daily Low-sodium diet Continue with beta jane and pj Consult cardiology Qualifiers: Congestive heart failure type: combined Qualified Code(s): I50.43 - Acute on chronic combined systolic (congestive) and diastolic (congestive) heart failure (2) CKD (chronic kidney disease) Current Visit: Yes Status: Acute Assessment and plan: Patient's creatinine appears to be around baseline we will continue to monitor creatinine Monitor intake and output daily weight Avoid nephrotoxins Qualifiers: Chronic kidney disease stage: stage 3 (moderate) Qualified Code(s): N18.3 - Chronic kidney disease, stage 3 (moderate) (3) DVT prophylaxis Current Visit: No Status: Acute Assessment and plan: Patient is on Coumadin and INR is therapeutic (4) Elevated troponin Current Visit: No Status: Acute Assessment and plan: Elevated troponin and this appears to be chronic most likely related to demand ischemia and history of CK D we will continue to trend (5) Hx pulmonary embolism Current Visit: No Status: Acute Assessment and plan: Continue with Coumadin (6) CAD (coronary artery disease) Current Visit: No Status: Chronic Assessment and plan: Presently no chest pain continue with aspirin and beta jane Imdur and Lipitor Nitroglycerin as the for chest pain Qualifiers: Coronary Disease-Associated Artery/Lesion type: [place] artery [place] vs. transplanted heart: [place] heart Associated angina: angina presence unspecified Qualified Code(s): I25.10 - Atherosclerotic heart disease of [place] coronary artery without angina pectoris (7) HTN (hypertension) Current Visit: No Status: Chronic Assessment and plan: Continue home meds Qualifiers: Hypertension type: essential hypertension Qualified Code(s): I10 - Essential (primary) hypertension - Time Spent With Patient less than 15 minutes - Subjective Interval history: Patient presented increased shortness of breath since yesterday he has a history of CHF chest x-ray showed pulmonary edema. He was given Lasix 60 feels better short of breath has improved. - Constitutional Vitals: Temp Pulse Resp BP Pulse Ox 98.1 F 69 14 120/60 92 03/13/17 18:56 03/13/17 18:56 03/13/17 18:56 03/13/17 18:56 03/13/17 18:56 General appearance: Present: A&O X 3, no acute distress, answers questions appropriately - Head Head exam: Present: atraumatic, normocephalic - Eye Eye exam: Present: PERRL, conjuntiva pink, sclera anicteric Pupils: Present: PERRL - Neck Neck exam general surgery: Present: supple, trachea midline. Absent: lymphadenopathy - Respiratory Respiratory exam: Present: CTAB. Absent: accessory muscle use, rales, rhonchi, wheezes - Cardiovascular Cardiovascular exam: Present: RRR, +S1, +S2. Absent: diastolic murmur, gallop, rubs, systolic murmur - GI/Abdominal GI/Abdominal exam: Present: normal bowel sounds, soft, no peritoneal signs. Absent: distended, tenderness - Extremities Exam Extremities exam: Present: warm, radial pulses palpable and symmetrical. Absent : calf tenderness, cyanotic, pedal edema - Neurological Exam Neurological exam: Present: CN II-XII intact, oriented X3, no focal deficits. Absent: pronater drift, facial droop, speech deficit - Skin Skin exam: Present: dry, intact Internal Medicine: Result - Labs CBC & Chem 7: 03/13/17 02:32 03/13/17 02:32 Labs: Short CBC 03/13/17 Range/Units 02:32 WBC 12.0 H (4.3-11.1) K/mcL Hgb 11.3 L (12.9-16.9) g/dL Hct 34.9 L (37.5-50.1) % Plt Count 159 (140-400) K/mcL Neutrophils # 10.6 H (1.6-8.9) K/mcL BMP 03/13/17 02:32 Sodium 139 Potassium 3.4 L Chloride 103 Carbon Dioxide 30 H BUN 23 Creatinine 1.47 H Glucose 125 H Calcium 8.7 Cardiac Enzymes 03/12/17 03/13/17 Range/Units 21:03 02:32 Troponin I 0.12 H* 0.12 H* (< 0.04) ng/mL - ABG Interpretation ABG results: PT/INR, D-dimer PT 30.5 Seconds (9.4-12.1) H 03/13/17 02:32 Consult Discharge Plan - Plan Referrals: Dagoberto Blunt MD [Primary Care Provider] -
[2017-03-13] MEDS: traZODone 50 MG TABLET PO SCH (21:03)
[2017-03-14 05:48] LABS: Basophils % 0.1 %; Eosinophils % 0.1 %; Hematocrit 38.7 % (37.5-50.1); Hemoglobin 12.6 g/dL (12.9-16.9); Immature Granulocytes % 0.5 % (0-4); Lymphocytes # 0.9 K/mcL (0.6-4.6); Mean Corpuscular HGB Conc 32.6 g/dL (31.6-35.5); Mean Platelet Volume 10.5 fL (9.4-12.4); Monocytes # 0.7 K/mcL (0.0-1.3); Monocytes % 5.3 %; Neutrophils # 11.1 K/mcL (1.6-8.9); Platelet Count 192 K/mcL (140-400); Red Cell Distribution Width 15.7 % (11.5-14.5)
[2017-03-14 05:59] LABS: INR 2.2; Prothrombin Time 23.8 Seconds (9.4-12.1)
[2017-03-14 06:34] LABS: Calcium 8.9 mg/dL (8.6-10.3); Potassium 3.3 mEq/L (3.5-5.1)
[2017-03-14] MEDS: Isosorbide MONOnitrate (24 HR) 30 MG TAB.ER.24H PO SCH (09:30)
[2017-03-14] MEDS: Lactobacillus 1 EACH CAP.SPRINK PO SCH (09:30)
[2017-03-14] MEDS: Aspirin 81 MG TAB.CHEW PO SCH (09:30)
[2017-03-14] MEDS: Furosemide 40 MG/4 ML VIAL IVP SCH (09:31)
[2017-03-14] MEDS: Cholecalciferol (D-3) 1,000 UNIT TABLET PO SCH (09:31)
[2017-03-14] MEDS: NIFEdipine XL (24 HR) 60 MG TAB.ER.24 PO SCH (09:31)
[2017-03-14] MEDS: Metoprolol XL (24 HR) Succ 50 MG TAB.ER.24H PO SCH (09:31)
[2017-03-14] MEDS: cloNIDine HCl 0.1 MG TABLET PO SCH ×2 (09:31→21:13)
--- NOTE | 2017-03-14 15:55 | Internal Med Progress Note ---
Date of Encounter: 03/14/17 Time of Encounter: 11:00 - Assessment and plan (1) Acute exacerbation of CHF (congestive heart failure) Current Visit: Yes Status: Acute Assessment and plan: Patient has a history of CHF last echo completed in January 2017 showed EF of 45-50% with moderate diastolic dysfunction. He has been expressing increased breath as lap as well as lower leg swelling we will continue with IV Lasix 40 mg daily Strict MATIAS daily weights fluid restrictions 1500 mL daily Low-sodium diet Continue with beta jane and pj Consult cardiology O2 as needed Qualifiers: Congestive heart failure type: combined Qualified Code(s): I50.43 - Acute on chronic combined systolic (congestive) and diastolic (congestive) heart failure (2) CKD (chronic kidney disease) Current Visit: Yes Status: Acute Assessment and plan: Patient's creatinine 1.53 we will continue to monitor creatinine Monitor intake and output daily weight Avoid nephrotoxins Qualifiers: Chronic kidney disease stage: stage 3 (moderate) Qualified Code(s): N18.3 - Chronic kidney disease, stage 3 (moderate) (3) DVT prophylaxis Current Visit: No Status: Acute Assessment and plan: Patient is on Coumadin and INR is therapeutic (4) Elevated troponin Current Visit: No Status: Acute Assessment and plan: Elevated troponin and this appears to be chronic most likely related to demand ischemia and history of CK D we will continue to trend (5) Hx pulmonary embolism Current Visit: No Status: Acute Assessment and plan: Continue with Coumadin (6) CAD (coronary artery disease) Current Visit: No Status: Chronic Assessment and plan: Presently no chest pain continue with aspirin and beta jane Imdur and Lipitor Nitroglycerin as the for chest pain Qualifiers: Coronary Disease-Associated Artery/Lesion type: [place] artery [place] vs. transplanted heart: [place] heart Associated angina: angina presence unspecified Qualified Code(s): I25.10 - Atherosclerotic heart disease of [place] coronary artery without angina pectoris (7) HTN (hypertension) Current Visit: No Status: Chronic Assessment and plan: Continue home meds Qualifiers: Hypertension type: essential hypertension Qualified Code(s): I10 - Essential (primary) hypertension - Time Spent With Patient less than 15 minutes - Subjective Interval history: Patient presented increased shortness of breath he has a history of CHF chest x -ray showed pulmonary edema. Denies any fevers chills cough or shortness of breath at this time. He feels his lower extremity swelling has improved. Ambulated per physical therapy oxygen saturation had dropped down to upper 80s - Constitutional Vitals: Temp Pulse Resp BP Pulse Ox 98.2 F 70 16 101/55 92 03/14/17 11:56 03/14/17 11:56 03/14/17 11:56 03/14/17 11:56 03/14/17 11:56 General appearance: Present: A&O X 3, no acute distress, answers questions appropriately - Head Head exam: Present: atraumatic, normocephalic - Eye Eye exam: Present: PERRL, conjuntiva pink, sclera anicteric Pupils: Present: PERRL - Neck Neck exam general surgery: Present: supple, trachea midline. Absent: lymphadenopathy - Respiratory Respiratory exam: Present: CTAB. Absent: accessory muscle use, rales, rhonchi, wheezes - Cardiovascular Cardiovascular exam: Present: RRR, +S1, +S2. Absent: diastolic murmur, gallop, rubs, systolic murmur - GI/Abdominal GI/Abdominal exam: Present: normal bowel sounds, soft, no peritoneal signs. Absent: distended, tenderness - Extremities Exam Extremities exam: Present: warm, radial pulses palpable and symmetrical. Absent : calf tenderness, cyanotic, pedal edema - Neurological Exam Neurological exam: Present: CN II-XII intact, oriented X3, no focal deficits. Absent: pronater drift, facial droop, speech deficit - Skin Skin exam: Present: dry, intact Internal Medicine: Result - Labs CBC & Chem 7: 03/14/17 05:01 03/14/17 05:01 Labs: Short CBC 03/14/17 Range/Units 05:01 WBC 12.7 H (4.3-11.1) K/mcL Hgb 12.6 L (12.9-16.9) g/dL Hct 38.7 (37.5-50.1) % Plt Count 192 (140-400) K/mcL Neutrophils # 11.1 H (1.6-8.9) K/mcL BMP 03/14/17 05:01 Sodium 138 Potassium 3.3 L Chloride 101 Carbon Dioxide 28 BUN 27 H Creatinine 1.53 H Glucose 101 Calcium 8.9 - ABG Interpretation ABG results: PT/INR, D-dimer PT 23.8 Seconds (9.4-12.1) H 03/14/17 05:01 Consult Discharge Plan - Plan Referrals: Dagoberto Blunt MD [Primary Care Provider] -
--- NOTE | 2017-03-14 17:20 | Electrocardiograph Report ---
[address] [place] [address] Test Date: 2017-03-13 Pat Name: Javier St Department: 113 Room: 3B Gender: M Mobile Application Developer: DEN : 1930 Requested By: Amanda Boateng Order Number: [id number] Reading MD: Isabel Capps Measurements Intervals [place] Rate: 62 P: 60 MA: 315 QRS: 266 QRSD: 146 T: -60 QT: 455 QTc: 460 Interpretive Statements ELECTRONIC ATRIAL AND VENTRICULAR PACEMAKER RIGHT BUNDLE BRANCH BLOCK MODERATE T-WAVE ABNORMALITY, CONSIDER LATERAL ISCHEMIA Electronically Signed On 03-14-2017 17:18:50 EST by Isabel Capps
[2017-03-14] MEDS ORDERED: *HR* Warfarin 2.5 MG TABLET PO ONE (18:00)
[2017-03-14 19:04] LABS: Adenovirus Not Detected (Not Detect); Bordetella Pertussis Not Detected (Not Detect); Chlamydophila pneumoniae Not Detected (Not Detect); Coronavirus 229E Not Detected (Not Detect); Coronavirus HKU1 Not Detected (Not Detect); Coronavirus NL63 Not Detected (Not Detect); Coronavirus OC43 Not Detected (Not Detect); Human Metapneumovirus Not Detected (Not Detect); Human Rhinovirus/Enterovirus Not Detected (Not Detect); Influenza A Subtype 2009 H1 Not Detected (Not Detect); Influenza A Untypeable Not Detected (Not Detect); Influenza B Not Detected (Not Detect); Mycoplasma pneumoniae Not Detected (Not Detect); Parainfluenza Virus 1 Not Detected (Not Detect); Parainfluenza Virus 2 Not Detected (Not Detect); Parainfluenza Virus 3 Not Detected (Not Detect); Parainfluenza Virus 4 Not Detected (Not Detect); Respiratory Syncytial Virus Not Detected (Not Detect)
[2017-03-14] MEDS: traZODone 50 MG TABLET PO SCH (21:14)
[2017-03-15 06:35] LABS: INR 3.1; Prothrombin Time 33.9 Seconds (9.4-12.1)
[2017-03-15] MEDS: Cholecalciferol (D-3) 1,000 UNIT TABLET PO SCH (08:55)
[2017-03-15] MEDS: cloNIDine HCl 0.1 MG TABLET PO SCH ×2 (08:55→21:03)
[2017-03-15] MEDS: Isosorbide MONOnitrate (24 HR) 30 MG TAB.ER.24H PO SCH (08:55)
[2017-03-15] MEDS: Lactobacillus 1 EACH CAP.SPRINK PO SCH (08:56)
[2017-03-15] MEDS: NIFEdipine XL (24 HR) 60 MG TAB.ER.24 PO SCH (08:56)
[2017-03-15] MEDS: Metoprolol XL (24 HR) Succ 50 MG TAB.ER.24H PO SCH (08:56)
[2017-03-15] MEDS: Aspirin 81 MG TAB.CHEW PO SCH (08:56)
[2017-03-15] MEDS: Furosemide 40 MG/4 ML VIAL IVP SCH (09:04)
--- NOTE | 2017-03-15 10:18 | Cardiology Consult Note ---
Date of Encounter: 03/15/17 Time of Encounter: 09:30 Assessment and Plan (1) CHF (congestive heart failure) Current Visit: Yes Status: Acute Patient presented to [facility] ED with complaints of shortness of breath, weakness, and abdominal pain. Hx of mild LV systolic dysfunction, EF 45-50% with moderate LVDD, moderate cLVH. Admit on 03/12/17, Cardiology consulted today. CXR ([facility]): pulmonary edema with small pleural effusions and bibasilar atelectasis BNP 2357. has been on IV diuresis. Cumulative I&O: -245 mL (? accuracy). Patient appears euvolemic upon exam. States dyspnea has resolved. BP have been hypotensive, may be contributing to worsening SCr. Will decrease ACEi to 2.5 daily. Change lasix to oral. CHF teaching reinforced including Na/fluid restriction diet, daily weights. No further testing recommended as inpatient from Cardiology. Anticipate sign- off once seen by Dr. Shelton. Qualifiers: Congestive heart failure type: combined Congestive heart failure chronicity : acute on chronic Qualified Code(s): I50.43 - Acute on chronic combined systolic (congestive) and diastolic (congestive) heart failure (2) Elevated troponin Current Visit: Yes Status: Acute Adynamic, mild troponin elevation in the setting of CKD, CHF. Likely demand ischemia. Troponin elevation appears chronic. Patient denies chest pain/discomfort upon exam. ECG shows T wave inversion leads V3, V4. [facility] 2014 reviewed, medical therapy recommended. Continue asa, statin, betablocker, and nitrates. No further testing recommended. Follow-up in the outpatient setting. (3) Stage III chronic kidney disease Current Visit: Yes Status: Chronic SCr continues to worsen with IV diuresis, appears euvolemic upon exam. Will stop IV lasix and change to home regimen, 20 mg daily. (4) Pacemaker Current Visit: Yes Status: Chronic Hx of PPM. Follows routinely with [facility] (5) CAD (coronary artery disease) Current Visit: Yes Status: Chronic Hx of CAD s/p 2v CABG [facility] 2014: s/p 2 of 2 patent bypass grafts (SVG-R PDA, RPL and CARRANZA-LAD). Diffusely diseased LCx with good collaterals. Med mgmt. recommended. Asa, statin, betablocker. Qualifiers: Coronary Disease-Associated Artery/Lesion type: [place] artery [place] vs. transplanted heart: [place] heart Associated angina: without angina Qualified Code(s): I25.10 - Atherosclerotic heart disease of [place] coronary artery without angina pectoris (6) H/O heart valve replacement with bioprosthetic valve Current Visit: Yes Status: Acute Hx of TAVR 2015 at [facility]. TTE 01/2017: EF 45-50%, well seated bioprosthetic AC Continue to follow in the outpatient setting. (7) Hx pulmonary embolism Current Visit: Yes Status: Acute Hx of PE anticoagulated on coumadin. Mgmt per primary service. Discussion w patient/family: The assessment and plan as outlined above was discussed with the patient and/or family members who expressed understanding and agreement. All questions were answered. Thank you for involving us in the care of your patient. Please call with any questions. The patient will be discussed and reviewed with Dr. Shelton; anticipate sign-off. Follow-up in the outpatient setting. History of Present Illness Consult date: 03/15/17 Requesting physician: Thalia Anglin Consult reason: Elevated troponin, CHF Chief complaint: Shortness of breath, weakness History of present illness: Mr. St is a 86 year old male with PMHx significant for CAD s/p CABG, HTN, CKD , PE on coumadin, PPM, TAVR (2015), and CHF who presented to [facility] ED on 03/12/17 with complaints of generalized weakness, shortness of breath, and abdominal pain. CXR at [facility] demonstrated pulmonary edema, small pleural effusions, and bibasilar atelectasis--similar to prior study. He was then transferred to [facility] for further evaluation and treatment. Recent hospitalization end of January with similar symptoms, was found to have mildly reduced LVEF, 45-50% but also had + occult stool, therefore medical management was recommended. Cardiology consult today, 03/15/17, for recommendations. Patient reports symptoms have nearly resolved and is ready for discharge. Past Med Surg Social Fam HX - Past Medical History Attestation: Yes The following information was validated with the patient. Source: patient Medical history: CHF, coronary artery disease, hyperlipidemia, hypertension, pulmonary embolus, valvular heart disease Psychiatric history: no psych history - Past Surgical History Surgical History: cholecystectomy, coronary bypass (CABG), heart valve replacement - Social History Smoking Status: Never smoker Smokeless Tobacco Status: No Alcohol use: none Drug use: none - Family History Father Family Member Ethnicity: Non- Living Status: Hx Family Cardiac Disorders: Yes (DVT) Sister Family Member Ethnicity: Non- Living Status: Still Living Hx Family Cardiac Disorders: Yes (Stroke) Mother Adopted: No Family Member Ethnicity: Non- Living Status: Hx Family Cardiac Disorders: Yes Hx Family Respiratory Disorders: No Hx Family Cancer: Yes (Lung) Hx Family GI Disorders: No Hx Family Endocrine Disorder: Yes Hx Family Neuromuscular Disorders: No Hx Family Neurologic Disorders: No Hx Family HEENT Disorders: No Hx Family Autoimmune Disorders: No Medications and Allergies Aspirin 81 mg PO DAILY 11/04/14 [History] Atorvastatin [Lipitor] 40 mg PO HS 11/04/14 [History] Cholecalciferol (Vitamin D3) [Vitamin D3] 1,000 unit PO DAILY 11/04/14 [History] Isosorbide MONOnitrate (24 HR) [Imdur] 30 mg PO DAILY 11/04/14 [History] Metoprolol XL (24 HR) Succ [Toprol XL] 100 mg PO DAILY 11/04/14 [History] NIFEdipine [Nifedical Xl] 60 mg PO DAILY 11/04/14 [History] Lactobacillus Acidophilus [Acidophilus] 1 cap PO DAILY 10/24/15 [History] Acetaminophen [Tylenol] 500 mg PO Q6HR PRN #10 tablet 06/14/16 [Rx] Furosemide [Lasix] 20 mg PO DAILY 01/27/17 [History] Lisinopril [Zestril] 10 mg PO DAILY 01/27/17 [History] Sertraline [Zoloft] 25 mg PO DAILY 01/27/17 [History] Tamsulosin [Flomax] 0.4 mg PO DAILY 01/27/17 [History] Warfarin [Coumadin] 1.25 mg PO [id number] 01/27/17 [History] Warfarin [Coumadin] 2.5 mg PO TH 01/27/17 [History] traZODone [TraZODone] 50 mg PO HS 01/27/17 [History] cloNIDine HCl [CloNIDine HCl] 0.1 mg PO BID 03/12/17 [History] Ferrous Sulfate [Ferrous Sulfate] 325 mg PO DAILY 03/13/17 [History] Omeprazole [PriLOSEC] 40 mg PO DAILY 03/13/17 [History] 3 Allergy/AdvReac Type Severity Reaction Status Date / Time No Known Allergies Allergy Unverified 10/04/16 10:10 All Systems Review: A 10-system review of systems was performed and is negative for pertinent findings except as documented above in the HPI. - Cardiovascular Cardiovascular: as per HPI Physical Examination Vital Signs, Last 4 Hours Temp Resp BP Pulse Ox 03/15/17 06:56 98.0 F 16 100/58 92 General: Conversant, No Apparent Distress HEENT: Atraumatic, Normocephaly, Mucus Membranes Moist Neck: No JVD, Normal carotid pulses Cardiac: Reg Rate and Rhythm, Normal S1 and S2, No Murmur Lungs: Normal Breath Sounds, No Wheeze, Rales, Rhonchi Neuro: Alert and responsive, No focal deficits noted Abdomen: Soft, Non-Tender Skin: No rashes noted on visualized skin Musculoskeletal: No Chest Wall Tenderness Extremities: No Clubbing, No Cyanosis, No Edema, Normal Pulses, Other (mild BLE discoloration) Results 03/14/17 05:01 03/14/17 05:01 Lab Results 03/15/17 05:56 INR 3.1 Active Medications Acetaminophen (Tylenol) 500 mg PO Q6HR PRN PRN Reason: Pain Stop: 09/11/17 20:30 Last Admin: 03/14/17 17:37 Dose: 500 mg Aspirin (Aspirin) 81 mg PO DAILY SOFYA Stop: 09/12/17 09:01 Last Admin: 03/15/17 08:56 Dose: 81 mg Atorvastatin Calcium (Lipitor) 40 mg PO HS SOFYA Stop: 09/11/17 21:01 Last Admin: 03/14/17 21:14 Dose: 40 mg Clonidine HCl (Clonidine Hcl) 0.1 mg PO BID SOFYA Stop: 09/11/17 21:01 Last Admin: 03/15/17 08:55 Dose: 0.1 mg Furosemide (Lasix) 20 mg PO DAILY SOFYA Stop: 09/15/17 09:01 Isosorbide Mononitrate (Imdur) 30 mg PO DAILY SOFYA Stop: 09/12/17 09:01 Last Admin: 03/15/17 08:55 Dose: 30 mg Lactobacillus Acidophilus/Rhamnosus (Culturelle) 1 each PO DAILY SOFYA Stop: 09/12/17 09:01 Last Admin: 03/15/17 08:56 Dose: 1 each Lisinopril (Zestril) 2.5 mg PO DAILY SOFYA PRN Reason: Protocol Stop: 09/14/17 09:01 Last Admin: 03/15/17 08:56 Dose: 2.5 mg Metoprolol Succinate (Toprol Xl) 100 mg PO DAILY SOFYA Stop: 09/12/17 09:01 Last Admin: 03/15/17 08:56 Dose: 100 mg Naloxone HCl (Narcan) 0.4 mg IVP Q2MIN PRN PRN Reason: SEE COMMENTS Stop: 09/11/17 20:21 Nifedipine (Procardia Xl) 60 mg PO DAILY SOFYA PRN Reason: Protocol Stop: 09/12/17 09:01 Last Admin: 03/15/17 08:56 Dose: 60 mg Omeprazole (Prilosec) 40 mg PO DAILY@0730 SOFYA PRN Reason: Protocol Stop: 09/12/17 07:31 Last Admin: 03/15/17 08:56 Dose: 40 mg Potassium Chloride (Potassium Chloride) 20 meq PO DAILY SOFYA Stop: 09/13/17 09:01 Last Admin: 03/15/17 08:56 Dose: 20 meq Sertraline HCl (Zoloft) 25 mg PO DAILY SOFYA Stop: 09/12/17 09:01 Last Admin: 03/15/17 08:55 Dose: 25 mg Tamsulosin HCl (Flomax) 0.4 mg PO DAILY SOFYA PRN Reason: Protocol Stop: 09/12/17 09:01 Last Admin: 03/15/17 08:55 Dose: 0.4 mg Trazodone HCl (Trazodone) 50 mg PO HS SOFYA Stop: 09/11/17 21:01 Last Admin: 03/14/17 21:14 Dose: 50 mg Vitamin D (Vitamin D) 1,000 unit PO DAILY SOFYA Stop: 09/12/17 09:01 Last Admin: 03/15/17 08:55 Dose: 1,000 unit Warfarin Sodium (Coumadin Perpt) 1 each PO DAILY@1800 PRN PRN Reason: SEE COMMENTS Stop: 09/12/17 18:01 - Imaging and Cardiology Echo: report reviewed Cardiac cath: report reviewed Other Results: 12 hour tele: avg HR=83 SR, paced - EKG Interpretation EKG results cardiology: personally reviewed (reviewed with Dr. Shelton) Consult Discharge Plan - Plan Referrals: Dagoberto Blunt MD [Primary Care Provider] -
--- NOTE | 2017-03-15 19:43 | Internal Med Progress Note ---
Date of Encounter: 03/15/17 Time of Encounter: 15:00 - Assessment and plan (1) Acute exacerbation of CHF (congestive heart failure) Current Visit: Yes Status: Acute Assessment and plan: presented to OSH with shortness of breath, weakness, and abdominal pain. Hx of mild LV systolic dysfunction, EF 45-50% with moderate LVDD, moderate cLVH. OSH CXR with pulmonary edema with small pleural effusions and bibasilar atelectasis. BNP 2357. Initially on IV diuresis. Evaluated by Cardiology who recommended changing lasix to PO Qualifiers: Congestive heart failure type: combined Qualified Code(s): I50.43 - Acute on chronic combined systolic (congestive) and diastolic (congestive) heart failure (2) CKD (chronic kidney disease) Current Visit: Yes Status: Acute Assessment and plan: per hx. Renal function appears slightly worse than baseline. Evaluated by Cardiology who noted hypotensive, may be contributing to worsening SCr. AC decreased. Monitor repeat renal function. Qualifiers: Chronic kidney disease stage: stage 3 (moderate) Qualified Code(s): N18.3 - Chronic kidney disease, stage 3 (moderate) (3) Elevated troponin Current Visit: Yes Status: Acute Assessment and plan: appears to be chronic; most likely related to demand ischemia and history of CKD. [facility] 2014 reviewed per Cardiology and medical therapy recommended. No further testing recommended. Follow-up in the outpatient setting. Continue asa, statin, betablocker, and nitrates. (4) H/O heart valve replacement with bioprosthetic valve Current Visit: Yes Status: Acute Assessment and plan: per hx. Continue with Coumadin (5) Hx pulmonary embolism Current Visit: Yes Status: Acute Assessment and plan: per hx. Continue with Coumadin (6) HTN (hypertension) Current Visit: No Status: Chronic Assessment and plan: per hx. BP controlled. Continue home meds Qualifiers: Hypertension type: essential hypertension Qualified Code(s): I10 - Essential (primary) hypertension (7) DVT prophylaxis Current Visit: No Status: Acute Assessment and plan: coumadin - Subjective Interval history: Seen and examined at bedside, patient is new to me. Information obtained from chart review and patient report. Patient says he feels better and would likle to be discharged today. No CP, no SOB, no edema. - Constitutional Vitals: Temp Pulse Resp BP Pulse Ox 98.1 F 88 15 98/59 93 03/15/17 19:22 03/15/17 19:22 03/15/17 19:22 03/15/17 19:22 03/15/17 19:22 General appearance: Present: A&O X 3, no acute distress, answers questions appropriately - Head Head exam: Present: atraumatic, normocephalic - Eye Eye exam: Present: PERRL, conjuntiva pink, sclera anicteric Pupils: Present: PERRL - Neck Neck exam general surgery: Present: supple, trachea midline. Absent: lymphadenopathy - Respiratory Respiratory exam: Present: CTAB. Absent: accessory muscle use, rales, rhonchi, wheezes - Cardiovascular Cardiovascular exam: Present: RRR, +S1, +S2. Absent: diastolic murmur, gallop, rubs, systolic murmur - GI/Abdominal GI/Abdominal exam: Present: normal bowel sounds, soft, no peritoneal signs. Absent: distended, tenderness - Extremities Exam Extremities exam: Present: warm, radial pulses palpable and symmetrical. Absent : calf tenderness, cyanotic, pedal edema - Neurological Exam Neurological exam: Present: CN II-XII intact, oriented X3, no focal deficits. Absent: pronater drift, facial droop, speech deficit - Skin Skin exam: Present: dry, intact Internal Medicine: Result - Labs CBC & Chem 7: 03/14/17 05:01 03/14/17 05:01 - ABG Interpretation ABG results: PT/INR, D-dimer PT 33.9 Seconds (9.4-12.1) H 03/15/17 05:56 Consult Discharge Plan - Plan Referrals: Dagoberto Blunt MD [Primary Care Provider] -
[2017-03-15] MEDS: traZODone 50 MG TABLET PO SCH (21:02)
[2017-03-16 05:05] LABS: Hematocrit 34.1 % (37.5-50.1); Hemoglobin 11.2 g/dL (12.9-16.9); Mean Corpuscular HGB Conc 32.8 g/dL (31.6-35.5); Mean Corpuscular Volume 85.3 fL (83.0-100.0); Mean Platelet Volume 10.1 fL (9.4-12.4); Platelet Count 222 K/mcL (140-400); Red Cell Distribution Width 15.3 % (11.5-14.5)
[2017-03-16 05:12] LABS: INR 4.1
[2017-03-16 05:16] LABS: Calcium 8.7 mg/dL (8.6-10.3); Potassium 4.1 mEq/L (3.5-5.1)
[2017-03-16 05:17] LABS: Prothrombin Time 45.7 Seconds (9.4-12.1)
[2017-03-16] MEDS: Isosorbide MONOnitrate (24 HR) 30 MG TAB.ER.24H PO SCH (11:02)
[2017-03-16] MEDS: NIFEdipine XL (24 HR) 60 MG TAB.ER.24 PO SCH (11:02)
[2017-03-16] MEDS: Lactobacillus 1 EACH CAP.SPRINK PO SCH (11:03)
[2017-03-16] MEDS: Furosemide 20 MG TABLET PO SCH (11:03)
[2017-03-16] MEDS: Cholecalciferol (D-3) 1,000 UNIT TABLET PO SCH (11:03)
[2017-03-16] MEDS: cloNIDine HCl 0.1 MG TABLET PO SCH ×2 (11:03→19:50)
[2017-03-16] MEDS: Aspirin 81 MG TAB.CHEW PO SCH (11:03)
[2017-03-16] MEDS: Metoprolol XL (24 HR) Succ 50 MG TAB.ER.24H PO SCH (11:05)
--- NOTE | 2017-03-16 17:22 | Internal Med Progress Note ---
Date of Encounter: 03/16/17 Time of Encounter: 15:30 - Assessment and plan (1) Acute exacerbation of CHF (congestive heart failure) Current Visit: Yes Status: Acute Assessment and plan: presented to OSH with shortness of breath, weakness, and abdominal pain. Hx of mild LV systolic dysfunction, EF 45-50% with moderate LVDD, moderate cLVH. OSH CXR with pulmonary edema with small pleural effusions and bibasilar atelectasis. BNP 2357. Initially on IV diuresis. Appears euvolemic. IV lasix stopped and home lasix resumed. Cardiology followed Qualifiers: Congestive heart failure type: combined Qualified Code(s): I50.43 - Acute on chronic combined systolic (congestive) and diastolic (congestive) heart failure (2) CKD (chronic kidney disease) Current Visit: Yes Status: Acute Assessment and plan: per hx. Renal function appears slightly worse than baseline. Holding home HELEN, gentle IV fluids. Monitor repeat BMP Qualifiers: Chronic kidney disease stage: stage 3 (moderate) Qualified Code(s): N18.3 - Chronic kidney disease, stage 3 (moderate) (3) Elevated troponin Current Visit: Yes Status: Acute Assessment and plan: appears to be chronic; most likely related to demand ischemia and history of CKD. [facility] 2014 reviewed per Cardiology and medical therapy recommended. No further testing recommended. Follow-up in the outpatient setting. Continue asa, statin, betablocker, and nitrates. (4) H/O heart valve replacement with bioprosthetic valve Current Visit: Yes Status: Acute Assessment and plan: per hx. Continue with Coumadin (5) Hx pulmonary embolism Current Visit: Yes Status: Acute Assessment and plan: per hx. Continue with Coumadin (6) HTN (hypertension) Current Visit: No Status: Chronic Assessment and plan: per hx. BP controlled. Continue home meds Qualifiers: Hypertension type: essential hypertension Qualified Code(s): I10 - Essential (primary) hypertension (7) DVT prophylaxis Current Visit: No Status: Acute Assessment and plan: coumadin - Subjective Interval history: Seen and examined at bedside; says he feels okay. Uneventful night. No CP or SOB - Constitutional Vitals: Temp Pulse Resp BP Pulse Ox 97.5 F L 65 16 121/63 93 03/16/17 15:34 03/16/17 15:34 03/16/17 15:34 03/16/17 15:34 03/16/17 15:34 General appearance: Present: A&O X 3, no acute distress, answers questions appropriately Internal Medicine: Result - Labs CBC & Chem 7: 03/16/17 04:48 03/16/17 04:48 Labs: Short CBC 03/16/17 Range/Units 04:48 WBC 9.6 (4.3-11.1) K/mcL Hgb 11.2 L (12.9-16.9) g/dL Hct 34.1 L (37.5-50.1) % Plt Count 222 (140-400) K/mcL BMP 03/16/17 04:48 Sodium 137 Potassium 4.1 Chloride 103 Carbon Dioxide 25 BUN 53 H Creatinine 2.83 H Glucose 113 H Calcium 8.7 - ABG Interpretation ABG results: PT/INR, D-dimer PT 45.7 Seconds (9.4-12.1) H* 03/16/17 04:48 Consult Discharge Plan - Plan Referrals: Dagoberto Blunt MD [Primary Care Provider] -
[2017-03-16] MEDS: 0.9 % Sodium Chloride 1,000 ML IVC SCH (19:50)
[2017-03-16] MEDS: traZODone 50 MG TABLET PO SCH (19:50)
[2017-03-17 06:01] LABS: INR 3.3; Prothrombin Time 36.7 Seconds (9.4-12.1)
[2017-03-17 06:11] LABS: Calcium 8.4 mg/dL (8.6-10.3); Potassium 4.1 mEq/L (3.5-5.1)
[2017-03-17] MEDS: NIFEdipine XL (24 HR) 60 MG TAB.ER.24 PO SCH (08:46)
[2017-03-17] MEDS: Isosorbide MONOnitrate (24 HR) 30 MG TAB.ER.24H PO SCH (08:47)
[2017-03-17] MEDS: Metoprolol XL (24 HR) Succ 50 MG TAB.ER.24H PO SCH (08:47)
[2017-03-17] MEDS: Aspirin 81 MG TAB.CHEW PO SCH (08:47)
[2017-03-17] MEDS: Furosemide 20 MG TABLET PO SCH (08:47)
[2017-03-17] MEDS: cloNIDine HCl 0.1 MG TABLET PO SCH ×2 (08:47→21:05)
[2017-03-17] MEDS: Cholecalciferol (D-3) 1,000 UNIT TABLET PO SCH (08:47)
[2017-03-17] MEDS: Lactobacillus 1 EACH CAP.SPRINK PO SCH (08:47)
[2017-03-17] MEDS: 0.9 % Sodium Chloride 1,000 ML IVC SCH (17:13)
--- NOTE | 2017-03-17 17:34 | Internal Med Progress Note ---
Date of Encounter: 03/18/17 Time of Encounter: 14:00 - Assessment and plan (1) Acute CHF (congestive heart failure) Status: Acute Assessment and plan: presented to OSH with shortness of breath, weakness, and abdominal pain. Hx of mild LV systolic dysfunction, EF 45-50% with moderate LVDD, moderate cLVH. OSH CXR with pulmonary edema with small pleural effusions and bibasilar atelectasis. BNP 2357. Initially on IV diuresis. Appears euvolemic. IV lasix stopped and home lasix resumed. Cardiology followed Qualifiers: Heart failure type: diastolic Qualified Code(s): I50.31 - Acute diastolic ( congestive) heart failure (2) CKD (chronic kidney disease) Status: Acute Assessment and plan: per hx. Renal function appears slightly worse than baseline. Holding home HELEN, gentle IV fluids. Monitor repeat BMP Qualifiers: Chronic kidney disease stage: stage 3 (moderate) Qualified Code(s): N18.3 - Chronic kidney disease, stage 3 (moderate) (3) Elevated troponin Status: Chronic Assessment and plan: appears to be chronic; most likely related to demand ischemia and history of CKD. [facility] 2014 reviewed per Cardiology and medical therapy recommended. No further testing recommended. Follow-up in the outpatient setting. Continue asa, statin, betablocker, and nitrates. (4) H/O heart valve replacement with bioprosthetic valve Status: Deleted Assessment and plan: per hx. Continue with Coumadin (5) Hx pulmonary embolism Status: Chronic Assessment and plan: per hx. Continue with Coumadin (6) HTN (hypertension) Status: Chronic Assessment and plan: per hx. BP controlled. Continue home meds Qualifiers: Hypertension type: essential hypertension Qualified Code(s): I10 - Essential (primary) hypertension (7) DVT prophylaxis Status: Deleted Assessment and plan: coumadin - Subjective Interval history: Seen and examined at bedside; says he feels okay. Uneventful night. No CP or SOB - Constitutional Vitals: Temp Pulse Resp BP Pulse Ox 97.6 F 66 16 120/55 93 03/17/17 16:15 03/17/17 16:15 03/17/17 16:15 03/17/17 16:15 03/17/17 16:15 General appearance: Present: A&O X 3, no acute distress, answers questions appropriately - Head Head exam: Present: atraumatic, normocephalic - Eye Eye exam: Present: PERRL, conjuntiva pink, sclera anicteric Pupils: Present: PERRL - Neck Neck exam general surgery: Present: supple, trachea midline. Absent: lymphadenopathy - Respiratory Respiratory exam: Present: CTAB. Absent: accessory muscle use, rales, rhonchi, wheezes - Cardiovascular Cardiovascular exam: Present: RRR, +S1, +S2. Absent: diastolic murmur, gallop, rubs, systolic murmur - GI/Abdominal GI/Abdominal exam: Present: normal bowel sounds, soft, no peritoneal signs. Absent: distended, tenderness - Extremities Exam Extremities exam: Present: warm, radial pulses palpable and symmetrical. Absent : calf tenderness, cyanotic, pedal edema - Neurological Exam Neurological exam: Present: CN II-XII intact, oriented X3, no focal deficits. Absent: pronater drift, facial droop, speech deficit - Skin Skin exam: Present: dry, intact Internal Medicine: Result - Labs CBC & Chem 7: 03/16/17 04:48 03/18/17 18:08 Labs: BMP 03/17/17 05:08 Sodium 138 Potassium 4.1 Chloride 105 Carbon Dioxide 26 BUN 51 H Creatinine 2.48 H Glucose 108 H Calcium 8.4 L - ABG Interpretation ABG results: PT/INR, D-dimer PT 36.7 Seconds (9.4-12.1) H 03/17/17 05:08 Consult Discharge Plan - Plan Referrals: Dagoberto Blunt MD [Primary Care Provider] - Prescriptions: Warfarin perPT [Coumadin perPT] 3 mg PO 1800 #30 tablet
[2017-03-17] MEDS ORDERED: *HR* Warfarin 1 MG TABLET PO ONE (18:00)
[2017-03-17] MEDS: traZODone 50 MG TABLET PO SCH (21:05)
[2017-03-18 05:03] LABS: INR 3.4; Prothrombin Time 37.9 Seconds (9.4-12.1)
[2017-03-18] MEDS: Cholecalciferol (D-3) 1,000 UNIT TABLET PO SCH (08:55)
[2017-03-18] MEDS: Lactobacillus 1 EACH CAP.SPRINK PO SCH (08:55)
[2017-03-18] MEDS: NIFEdipine XL (24 HR) 60 MG TAB.ER.24 PO SCH (08:55)
[2017-03-18] MEDS: Aspirin 81 MG TAB.CHEW PO SCH (08:55)
[2017-03-18] MEDS: cloNIDine HCl 0.1 MG TABLET PO SCH (08:56)
[2017-03-18] MEDS: Furosemide 20 MG TABLET PO SCH (08:56)
[2017-03-18] MEDS: Isosorbide MONOnitrate (24 HR) 30 MG TAB.ER.24H PO SCH (08:56)
[2017-03-18] MEDS: Metoprolol XL (24 HR) Succ 50 MG TAB.ER.24H PO SCH (08:57)
--- NOTE | 2017-03-18 14:40 | Discharge Summary ---
Date of Encounter: 03/18/17 Time of Encounter: 12:36 - Discharge Diagnosis (1) CHF (congestive heart failure) Priority: Primary Status: Acute Comments: presented to OSH with shortness of breath, weakness, and abdominal pain. Hx of mild LV systolic dysfunction, EF 45-50% with moderate LVDD, moderate cLVH. OSH CXR with pulmonary edema with small pleural effusions and bibasilar atelectasis. BNP 2357. Initially on IV diuresis. Appeared euvolemic; IV lasix stopped and home lasix resumed. Cardiology followed. HELEN stopped with worsening renal function Qualifiers: Qualified Code(s): I50.43 - Acute on chronic combined systolic (congestive) and diastolic (congestive) heart failure (2) CKD (chronic kidney disease) Priority: Primary Status: Acute Comments: per hx. Renal function appears slightly worse than baseline. Holding home HELEN, gentle IV fluids. Monitor repeat BMP Qualifiers: Chronic kidney disease stage: stage 3 (moderate) Qualified Code(s): N18.3 - Chronic kidney disease, stage 3 (moderate) (3) Elevated troponin Priority: Secondary Status: Chronic Comments: appears to be chronic; most likely related to demand ischemia and history of CKD. [facility] 2014 reviewed per Cardiology and medical therapy recommended. No further testing recommended. Follow-up in the outpatient setting. Continue asa, statin, betablocker, and nitrates. (4) Hx pulmonary embolism Priority: Secondary Status: Chronic Comments: per hx. on Coumadin at home. INR has been supratherapeutic. Holding Coumadin; resume when less than 3. INR to be monitored at [facility]. (5) HTN (hypertension) Priority: Secondary Status: Chronic Comments: per hx. BP controlled. Continue home BB, CCB. HELEN stopped with worsening renal function Qualifiers: Hypertension type: essential hypertension Qualified Code(s): I10 - Essential (primary) hypertension - Discharge Medications Prescriptions: Warfarin perPT [Coumadin perPT] 3 mg PO 1800 #30 tablet Home Medications: Aspirin 81 mg PO DAILY 11/04/14 [History] Atorvastatin [Lipitor] 40 mg PO HS 11/04/14 [History] Cholecalciferol (Vitamin D3) [Vitamin D3] 1,000 unit PO DAILY 11/04/14 [History] Isosorbide MONOnitrate (24 HR) [Imdur] 30 mg PO DAILY 11/04/14 [History] Metoprolol XL (24 HR) Succ [Toprol XL] 100 mg PO DAILY 11/04/14 [History] NIFEdipine [Nifedical Xl] 60 mg PO DAILY 11/04/14 [History] Lactobacillus Acidophilus [Acidophilus] 1 cap PO DAILY 10/24/15 [History] Acetaminophen [Tylenol] 500 mg PO Q6HR PRN #10 tablet 06/14/16 [Rx] Furosemide [Lasix] 20 mg PO DAILY 01/27/17 [History] Sertraline [Zoloft] 25 mg PO DAILY 01/27/17 [History] Tamsulosin [Flomax] 0.4 mg PO DAILY 01/27/17 [History] traZODone [TraZODone] 50 mg PO HS 01/27/17 [History] cloNIDine HCl [CloNIDine HCl] 0.1 mg PO BID 03/12/17 [History] Ferrous Sulfate 325 mg PO DAILY 03/13/17 [History] Omeprazole [PriLOSEC] 40 mg PO DAILY 03/13/17 [History] Warfarin perPT [Coumadin perPT] 3 mg PO 1800 #30 tablet 03/18/17 [Rx] Allergies/Adverse Reactions: 3 Allergy/AdvReac Type Severity Reaction Status Date / Time No Known Allergies Allergy Unverified 10/04/16 10:10 Date of admission: 03/17/17 17:37 Primary care physician: Dagoberto Blunt MD Consults: 03/12/17 20:22 Consult to Occupational Therapy [CONS] Routine Comment: Evaluate, develop and implement POC Reason for Consult: weakness, back/legs pain 03/12/17 20:23 Consult to Physical Therapy [CONS] Routine Comment: Evaluate, develop and implement POC Reason for Consult: Weakness, back/legs pain 03/14/17 15:50 Consult to Cardiology [CONS] Routine Comment: Consulting Provider: Cardiology Opal Reason for Consult: chf, excerbation Time Notified: 15:50 Call Completed: Yes 03/15/17 09:25 Consult to Quill Worker [CONS] Routine Reason for SW Consult: ECF/SNF placement Discharging clinician: Chiqui Jackson Anticipated date of discharge: 03/18/17 - Patient Status Disposition: Transfer SNF Condition: Fair Functional capacity at discharge: uses cane/walker Overall status at discharge: patient is back to baseline - Discharge Instructions Follow Up With: Dagoberto Blunt MD [Primary Care Provider] - - Diet and Activity Activity: as per physical therapy Diet: low fat, low cholesterol, low salt diet Interval History: Seen and examined at bedside. Patient says he feels better and is anticipating discharge later on today. No chest pain or shortness of breath. He has an appetite and tolerating regular diet. No abdominal pain, nausea, vomiting or diarrhea. Hospital course: See assessment and plan - Time Spent with Patient Total time spent providing and/or coordinating discharge services: Less than 30 minutes - Constitutional Vitals: Temp Pulse Resp BP Pulse Ox 98.1 F 101 18 104/66 94 03/18/17 11:11 03/18/17 11:11 03/18/17 11:11 03/18/17 11:11 03/18/17 11:11 General appearance: Present: A&O X 3, no acute distress, answers questions appropriately - Head Head exam: Present: atraumatic, normocephalic - Eye Eye exam: Present: PERRL, conjuntiva pink, sclera anicteric Pupils: Present: PERRL - Neck Neck exam general surgery: Present: supple, trachea midline. Absent: lymphadenopathy - Respiratory Respiratory exam: Present: CTAB. Absent: accessory muscle use, rales, rhonchi, wheezes - Cardiovascular Cardiovascular exam: Present: RRR, +S1, +S2. Absent: diastolic murmur, gallop, rubs, systolic murmur - GI/Abdominal GI/Abdominal exam: Present: normal bowel sounds, soft, no peritoneal signs. Absent: distended, tenderness - Extremities Exam Extremities exam: Present: warm, radial pulses palpable and symmetrical. Absent : calf tenderness, cyanotic, pedal edema - Neurological Exam Neurological exam: Present: CN II-XII intact, oriented X3, no focal deficits. Absent: pronater drift, facial droop, speech deficit - Skin Skin exam: Present: dry, intact
[2017-03-18 15:20] VITALS: BP 105/67
[2017-03-18 18:30] LABS: Calcium 8.5 mg/dL (8.6-10.3); Potassium 4.2 mEq/L (3.5-5.1)
== END 2017-03-18 19:53 | DRG 291 ==
LOC: 3BNU
PROVIDERS: ADMIT Registered Nurse; ATTEND Registered Nurse

== ENCOUNTER 2017-04-17 16:26 | Inpatient (IN) ==
[2017-04-17] MEDS ORDERED: cefTRIAXone 2,000 MG in Water for inj. (sterile) 20 ML 20 ML IVP ONE (17:17)
--- NOTE | 2017-04-17 17:18 | Emergency Department Note ---
Disposition Referrals: Dagoberto Blunt MD [Primary Care Provider] - General Adult HPI - General Chief complaint: ED General Medical Stated complaint: Abnormal Labs from Dr. Tucker Time Seen by Provider: 04/17/17 16:50 Source: patient Limitations: no limitations - History of Present Illness Pain Scale: 8 - Related Data Home Medications Medication Instructions Recorded Confirmed Aspirin 81 mg PO DAILY 11/04/14 03/13/17 Atorvastatin [Lipitor] 40 mg PO HS 11/04/14 03/13/17 Cholecalciferol (Vitamin D3) 1,000 unit PO DAILY 11/04/14 03/13/17 [Vitamin D3] Isosorbide MONOnitrate (24 HR) 30 mg PO DAILY 11/04/14 03/13/17 [Imdur] Metoprolol XL (24 HR) Succ [Toprol 100 mg PO DAILY 11/04/14 03/13/17 XL] NIFEdipine [Nifedical Xl] 60 mg PO DAILY 11/04/14 03/13/17 Lactobacillus Acidophilus 1 cap PO DAILY 10/24/15 03/13/17 [Acidophilus] Furosemide [Lasix] 20 mg PO DAILY 01/27/17 03/13/17 Sertraline [Zoloft] 25 mg PO DAILY 01/27/17 03/13/17 Tamsulosin [Flomax] 0.4 mg PO DAILY 01/27/17 03/13/17 traZODone [TraZODone] 50 mg PO HS 01/27/17 03/13/17 cloNIDine HCl [CloNIDine HCl] 0.1 mg PO BID 03/12/17 03/13/17 Ferrous Sulfate 325 mg PO DAILY 03/13/17 03/13/17 Omeprazole [PriLOSEC] 40 mg PO DAILY 03/13/17 03/13/17 Previous Rx's Medication Instructions Recorded Acetaminophen [Tylenol] 500 mg PO Q6HR PRN #10 tablet 06/14/16 Warfarin perPT [Coumadin perPT] 3 mg PO 1800 #30 tablet 03/18/17 Allergies Allergy/AdvReac Type Severity Reaction Status Date / Time No Known Allergies Allergy Unverified 10/04/16 10:10 Past Medical History - Past Medical History Medical history: Reports: CHF, coronary artery disease, hyperlipidemia, hypertension, pulmonary embolus, valvular heart disease Surgical history: Reports: cholecystectomy, coronary bypass (CABG), heart valve replacement Psychiatric history: Reports: no psych history - Social History Smoking Status: Never smoker Smokeless Tobacco Status: No Alcohol use: Reports: none Drug use: Reports: none Physical Exam - General Limitations: no limitations General appearance: alert, in no apparent distress Course Vital Signs Temperature 97.4 F L 04/17/17 16:42 Pulse Rate 71 04/17/17 16:42 Respiratory Rate 20 04/17/17 16:42 Blood Pressure 182/75 04/17/17 16:42 O2 Sat by Pulse Oximetry 98 04/17/17 16:42 Temperature 97.4 F L 04/17/17 16:42 Pulse Rate 71 04/17/17 16:42 Respiratory Rate 20 04/17/17 16:42 Blood Pressure 182/75 04/17/17 16:42 O2 Sat by Pulse Oximetry 98 04/17/17 16:42 Oxygen Delivery Oxygen Delivery Room Air
--- NOTE | 2017-04-17 17:32 | Emergency Department Note ---
Disposition Clinical Impression: Septic arthritis Qualifiers: Septic arthritis location: unspecified location Septic arthritis organism: due to unspecified organism Qualified Code(s): M00.9 - Pyogenic arthritis, unspecified Chronic kidney disease Qualifiers: Chronic kidney disease stage: unspecified stage Qualified Code(s): N18.9 - Chronic kidney disease, unspecified Disposition: Admitted As Inpatient Condition: Good Time of Disposition: 18:20 General Adult HPI - General Chief complaint: ED General Medical Stated complaint: Abnormal Labs from Dr. Tucker Time Seen by Provider: 04/17/17 16:50 Source: patient Mode of arrival: ambulatory Limitations: no limitations Nursing Notes Reviewed: Yes Vital Signs Reviewed: Yes - History of Present Illness HPI Narrative: 86-year-old male presents for evaluation of abnormal labs. States that he fell on Tuesday and hit his right knee. Since in the patient's been having right knee pain. Patient was evaluated in the out patient setting and had a kneecap with an x-ray. Patient was told to come in after concerns of infection. Patient states that he has difficulty moving his knee patient states he has difficulty ambulating. Patient denies any fevers. Does note pain and redness over the right knee. Patient states he has hit his head. Patient denies any chest pain. No shortness breath. No nausea vomiting. Patient states that he has had his knee replaced 9 years ago at [facility] but does not want to be transferred. Pain Scale: 8 - Related Data Home Medications Medication Instructions Recorded Confirmed Aspirin 81 mg PO DAILY 11/04/14 03/13/17 Atorvastatin [Lipitor] 40 mg PO HS 11/04/14 03/13/17 Cholecalciferol (Vitamin D3) 1,000 unit PO DAILY 11/04/14 03/13/17 [Vitamin D3] Isosorbide MONOnitrate (24 HR) 30 mg PO DAILY 11/04/14 03/13/17 [Imdur] Metoprolol XL (24 HR) Succ [Toprol 100 mg PO DAILY 11/04/14 03/13/17 XL] NIFEdipine [Nifedical Xl] 60 mg PO DAILY 11/04/14 03/13/17 Lactobacillus Acidophilus 1 cap PO DAILY 10/24/15 03/13/17 [Acidophilus] Furosemide [Lasix] 20 mg PO DAILY 01/27/17 03/13/17 Sertraline [Zoloft] 25 mg PO DAILY 01/27/17 03/13/17 Tamsulosin [Flomax] 0.4 mg PO DAILY 01/27/17 03/13/17 traZODone [TraZODone] 50 mg PO HS 01/27/17 03/13/17 cloNIDine HCl [CloNIDine HCl] 0.1 mg PO BID 03/12/17 03/13/17 Ferrous Sulfate 325 mg PO DAILY 03/13/17 03/13/17 Omeprazole [PriLOSEC] 40 mg PO DAILY 03/13/17 03/13/17 Previous Rx's Medication Instructions Recorded Acetaminophen [Tylenol] 500 mg PO Q6HR PRN #10 tablet 06/14/16 Warfarin perPT [Coumadin perPT] 3 mg PO 1800 #30 tablet 03/18/17 Allergies Allergy/AdvReac Type Severity Reaction Status Date / Time No Known Allergies Allergy Unverified 10/04/16 10:10 All systems ED: reviewed and negative except as stated. Constitutional: Denies: fever Cardiovascular: Denies: chest pain Respiratory: Denies: cough, dyspnea Gastrointestinal: Denies: abdominal pain, nausea, vomiting Past Medical History - Past Medical History Source: patient, obtained from family Medical history: Reports: CHF, coronary artery disease, hyperlipidemia, hypertension, pulmonary embolus, valvular heart disease Surgical history: Reports: cholecystectomy, coronary bypass (CABG), heart valve replacement Psychiatric history: Reports: no psych history - Social History Smoking Status: Never smoker Smokeless Tobacco Status: No Alcohol use: Reports: none Drug use: Reports: none Physical Exam - General Limitations: no limitations General appearance: alert, in no apparent distress - Head Head exam: atraumatic, normocephalic, normal inspection - Eye Eye exam: Present: normal appearance, PERRL, EOMI - ENT ENT exam: normal exam - Neck Neck exam: Present: normal inspection - Chest Chest inspection: Present: normal inspection, symmetric chest wall rise - Respiratory Respiratory exam: Present: normal lung sounds bilaterally. Absent: respiratory distress - Cardiovascular Cardiovascular exam: Present: regular rate, normal rhythm. Absent: systolic murmur - Abdominal Exam Abdominal exam: Present: soft, Non-Tender - Expanded Lower Extremity Exam Hip/Pelvis exam: Present: normal inspection. Absent: tenderness Upper leg exam: Present: normal inspection Knee exam: Present: tenderness, swelling, erythema. Absent: ecchymosis, deformity Lower leg exam: Present: normal inspection. Absent: tenderness Ankle exam: Present: normal inspection. Absent: tenderness Foot/toe exam: Present: normal inspection Neurovascular/Tendon exam: Present: normal capillary refill. Absent: pulse deficit, motor deficit, sensory deficit - Back Exam Back exam: Present: normal inspection. Absent: tenderness - Neurological Exam Neurological exam: Present: alert - Skin Skin exam: Present: warm, dry, intact, normal color Course Course Narrative: Patient records reviewed. Patient did have an x-ray obtained a couple days ago which showed a moderate effusion. Patient did have synovial fluid obtained in the outpatient setting and was concerning for infection. Patient did have positive synovial culture with Klebsiella. Patient will get basic labs including blood cultures, imaging of the pelvis as well as CT of the head. Patient was started on appropriate antibiotics. Will treat with orthopedics at this facility as the patient adamantly does not want to be transferred. - Consultations Consultation #1: Spoke with Dr. Hunter who states that the patient should go back to orthopedics where the patient had his operation. Discussed that the patient's surgery was 9 years ago and the patient did not remember or recall the doctor's name. States that it was done at [facility]. Went back and discussed with the patient and the patient states that he does not want to be transferred to [facility]. Time: 17:30 Consultation #2: Dr. Dickson Spoke with Dr. Martin who recommends to admit the patient here. Time: 18:08 Vital Signs Temperature 97.4 F L 04/17/17 16:42 Pulse Rate 71 04/17/17 16:42 Respiratory Rate 20 04/17/17 16:42 Blood Pressure 182/75 04/17/17 16:42 O2 Sat by Pulse Oximetry 98 04/17/17 16:42 Temperature 97.4 F L 04/17/17 16:42 Pulse Rate 71 04/17/17 17:37 Respiratory Rate 16 04/17/17 19:00 Blood Pressure 160/78 04/17/17 19:00 O2 Sat by Pulse Oximetry 93 04/17/17 17:37 Oxygen Delivery Oxygen Delivery Room Air Medical Decision Making - [facility] Narrative Medical decision making narrative: Patient presents with outpatient laboratory evidence of right septic knee. Patient does have prior orthopedic operations on that knee in the remote past. Patient's history has positive Gram stain of the right knee for Klebsiella. Patient states that it was traumatic after a fall a few days ago. Patient is on Coumadin. Patient had x-ray imaging of his knee done a couple days ago showed a moderate effusion. Patient had a head CT which showed no acute intracranial abnormality. Degenerative pelvis x-ray given his concerns of pelvic pain. Patient does meet SIRS criteria with likely source of the knee. Patient physical exam is also concerning for septic arthritis. Discussed the case initially with on-call orthopedics who requested the patient to be transferred to the facility where the patient surgery occurred however the patient was adamant about not being transferred. Discussed these concerns with the on-call orthopedics however ultimately the patient will be admitted to the hospitalist with orthopedic consult. Antibiotics recommended by orthopedics to be Ancef. Attempting to gather records regarding the patient's orthopedic surgery Facundo Cruz. He was given gradual fluid administration given his unknown cardiac function. - Lab Data Lab results reviewed: Yes I reviewed the patient's lab results. Result diagrams: 04/17/17 17:26 04/17/17 17:26 Lab Results 04/17/17 04/17/17 04/17/17 Range/Units 17:26 17:26 17:26 WBC 15.8 H (4.3-11.1) K/mcL RBC 3.77 L (4.19-5.50) M/mcL Hgb 10.3 L (12.9-16.9) g/dL Hct 33.2 L (37.5-50.1) % MCV 88.1 (83.0-100.0) fL MCH 27.3 L (28.0-33.3) pg MCHC 31.0 L (31.6-35.5) g/dL RDW 16.7 H (11.5-14.5) % Plt Count 385 (140-400) K/mcL MPV 9.3 L (9.4-12.4) fL Immature Gran % 0.6 (0-4) % Seg Neutrophils % 93.9 % Lymphocytes % 2.8 % Monocytes % 2.6 % Eosinophils % 0.0 % Basophils % 0.1 % Neutrophils # 14.8 H (1.6-8.9) K/mcL Lymphocytes # 0.4 L (0.6-4.6) K/mcL Monocytes # 0.4 (0.0-1.3) K/mcL Eosinophils # 0.0 (0.0-0.6) K/mcL Basophils # 0.0 (0.0-0.2) K/mcL PT (9.4-12.1) Seconds INR Sodium 139 (136-145) mEq/L Potassium 4.2 (3.5-5.1) mEq/L Chloride 101 (98-107) mEq/L Carbon Dioxide 30 H (23-29) mEq/L BUN 57 H (8-23) mg/dL Creatinine 1.43 H (0.70-1.30) mg/dL Est GFR ( Amer) 57 L (> 60) Est GFR (Non-Af Amer) 47 L (> 60) BUN/Creatinine Ratio 40 H (6-26) Glucose 115 H (70-105) mg/dL Calculated Osmolality 305 H (280-300) Lactic Acid 1.8 (0.5-2.2) mmol/L Calcium 9.3 (8.6-10.3) mg/dL Total Bilirubin 0.7 (0.3-1.0) mg/dL AST 30 (13-39) Units/L ALT 25 (7-52) Units/L Alkaline Phosphatase 98 (34-104) Units/L Serum Total Protein 7.2 (6.4-8.9) g/dL Albumin 3.3 L (3.5-5.7) g/dL Globulin 3.9 H (2.4-3.5) g/dL Albumin/Globulin Ratio 0.8 L (1.1-2.2) 04/17/17 Range/Units 17:26 WBC (4.3-11.1) K/mcL RBC (4.19-5.50) M/mcL Hgb (12.9-16.9) g/dL Hct (37.5-50.1) % MCV (83.0-100.0) fL MCH (28.0-33.3) pg MCHC (31.6-35.5) g/dL RDW (11.5-14.5) % Plt Count (140-400) K/mcL MPV (9.4-12.4) fL Immature Gran % (0-4) % Seg Neutrophils % % Lymphocytes % % Monocytes % % Eosinophils % % Basophils % % Neutrophils # (1.6-8.9) K/mcL Lymphocytes # (0.6-4.6) K/mcL Monocytes # (0.0-1.3) K/mcL Eosinophils # (0.0-0.6) K/mcL Basophils # (0.0-0.2) K/mcL PT 32.8 H (9.4-12.1) Seconds INR 3.0 Sodium (136-145) mEq/L Potassium (3.5-5.1) mEq/L Chloride (98-107) mEq/L Carbon Dioxide (23-29) mEq/L BUN (8-23) mg/dL Creatinine (0.70-1.30) mg/dL Est GFR ( Amer) (> 60) Est GFR (Non-Af Amer) (> 60) BUN/Creatinine Ratio (6-26) Glucose (70-105) mg/dL Calculated Osmolality (280-300) Lactic Acid (0.5-2.2) mmol/L Calcium (8.6-10.3) mg/dL Total Bilirubin (0.3-1.0) mg/dL AST (13-39) Units/L ALT (7-52) Units/L Alkaline Phosphatase (34-104) Units/L Serum Total Protein (6.4-8.9) g/dL Albumin (3.5-5.7) g/dL Globulin (2.4-3.5) g/dL Albumin/Globulin Ratio (1.1-2.2) - Radiology Data Radiology results reviewed: Yes I reviewed the patient's radiology results. Chest X-Ray 04/17/17 17:16 IMPRESSION: Stable portable study. D/ / Chelsi Quevedo Cha, MD / Chelsi Quevedo Cha, MD Interpreting Provider: Chelsi Quevedo Cha, MD Head CT 04/17/17 17:19 IMPRESSION: No acute intracranial abnormality. D/ / Curtis Blunt MD / Curtis Blunt MD Interpreting Provider: Curtis Blunt MD - EKG Data EKG #1 EKG attestation: Yes I reviewed and interpreted this EKG. EKG results narrative: Electronic atrial and ventricular pacemaker at a rate of 69. Left axis deviation. T-wave inversions in V1 V3 no acute changes. Nonspecific ST-T wave changes. S.B.A.R. - S.B.AMaggie Situation: Demographics Background: Presenting Complaint Assessment: Vital Signs, Course and respsone to treatment, Patient/Family Expectation Recommendation: Barrier(s) to disposition, Recommendation based on pending studies, treatments, or consults S.B.A.RTamra Report Given to: Dr. Momo Thomas Repor Time: 18:19 Attestation Statement - Attestation Attestation: I, Aníbal Dickson DO, examined this patient [id number] and my medical decision-making was reviewed with Dr. Lino Trinidad, Resident Physician. I agree with the documented findings, disposition and treatment plan as described except to the extent set forth below. Please see my progress notes for details. 86-year-old male presents to the emergency room after being contacted from his outside orthopedic provider. Patient was seen and evaluated outside facility had imaging completed of his right knee after a mechanical fall. Patient was seen and had a arthroscopy end Of the right knee completed. The cultures and sensitivity were called in today and patient has what appears to be Klebsiella in the aspirate from the right knee. There is concern for a joint effusion infection at this time. Patient denies any fevers or chills chest pain shortness of breath headache or vision change. Physical exam is unremarkable except for the right knee having appears to be a slight fluid accumulation and warmth to it at this time. There is redness to the medial compartment. There is no gross cellulitic-like presentation signs of trauma or puncture wound at this time. Patient has no palpable pain to the knee. He has had pain with movement of the knee. No visible signs of traumatic injury at this point. Patient did fall hitting his left side of his body and potentially his head. He is on Coumadin secondary to chronic atrial fibrillation. CT imaging of the head and neck were completed and unremarkable. Screening labs are completed secondary to the possibility of infection. Consultation placed to orthopedics. Conversations with the on-call physician as well as Dr. Martin were completed and they were happy to accommodate the patient's potential washout antibiotic regiment or need for surgical intervention here at this facility. No other acute concerns or issues noted this time. Recommended Ancef every 8 hours. Patient was given first dose of Rocephin based on the sensitivity prior to the conversation. Patient will be admitted for definitive management of this facility. See detailed documentation of the physical exam, medical intervention , medical decision-making and disposition in the resident physician's note. 1900 Patient will be admitted to the hospital this time with antibiotic regimens for the orthopedic physician. Patient is clinically stable. No other concerns or issues noted this time.
[2017-04-17 17:35] LABS: Basophils % 0.1 %; Hematocrit 33.2 % (37.5-50.1); Hemoglobin 10.3 g/dL (12.9-16.9); Immature Granulocytes % 0.6 % (0-4); Lymphocytes # 0.4 K/mcL (0.6-4.6); Lymphocytes % 2.8 %; Mean Corpuscular Hemoglobin 27.3 pg (28.0-33.3); Mean Corpuscular Volume 88.1 fL (83.0-100.0); Mean Platelet Volume 9.3 fL (9.4-12.4); Monocytes # 0.4 K/mcL (0.0-1.3); Monocytes % 2.6 %; Neutrophils # 14.8 K/mcL (1.6-8.9); Platelet Count 385 K/mcL (140-400); Red Blood Count 3.77 M/mcL (4.19-5.50); Red Cell Distribution Width 16.7 % (11.5-14.5); Segmented Neutrophils % 93.9 %
[2017-04-17] MEDS ORDERED: *HR* HYDROcodone/Acet 5/325 mg TABLET PO ONE (17:39)
[2017-04-17 17:40] LABS: Prothrombin Time 32.8 Seconds (9.4-12.1)
[2017-04-17 17:58] LABS: Albumin 3.3 g/dL (3.5-5.7); Albumin/Globulin Ratio 0.8 (1.1-2.2); Bilirubin,Total 0.7 mg/dL (0.3-1.0); Calcium 9.3 mg/dL (8.6-10.3); Globulin 3.9 g/dL (2.4-3.5); Potassium 4.2 mEq/L (3.5-5.1); Total Protein 7.2 g/dL (6.4-8.9)
[2017-04-17] MEDS ORDERED: 0.9 % Sodium Chloride 1,000 ML IVC ONE (18:06)
--- NOTE | 2017-04-17 19:33 | Internal Med History&Physical ---
Date of Encounter: 04/17/17 Time of Encounter: 19:29 Assessment and Plan (1) Septic arthritis Current visit: Yes Status: Acute We will admit the patient. Nothing by mouth after midnight. Put the patient on IV Ancef. Orthopedics consult. Pain control. Follow up on blood cultures. Qualifiers: Septic arthritis location: knee Septic arthritis organism: due to other bacteria Laterality: right Qualified Code(s): M00.861 - Arthritis due to other bacteria, right knee (2) CKD (chronic kidney disease) Current visit: Yes Status: Acute Around baseline. We will continue to monitor. Qualifiers: Chronic kidney disease stage: stage 3 (moderate) Qualified Code(s): N18.3 - Chronic kidney disease, stage 3 (moderate) (3) CAD (coronary artery disease) Current visit: No Status: Chronic Continue with her home cardiac meds. Hold antiplatelets for now. Qualifiers: Coronary Disease-Associated Artery/Lesion type: grayling artery [place] vs. transplanted heart: grayling heart Associated angina: without angina Qualified Code(s): I25.10 - Atherosclerotic heart disease of grayling coronary artery without angina pectoris (4) HLD (hyperlipidemia) Current visit: No Status: Chronic Resume statin. Qualifiers: Hyperlipidemia type: pure hypercholesterolemia Qualified Code(s): E78.00 - Pure hypercholesterolemia, unspecified; E78.0 - Pure hypercholesterolemia (5) HTN (hypertension) Current visit: No Status: Chronic Resume home meds. Qualifiers: Hypertension type: essential hypertension Qualified Code(s): I10 - Essential (primary) hypertension (6) Hx pulmonary embolism Current visit: No Status: Chronic INR is 3.0. Coumadin will be held for now in case any surgical needs. (7) Heart failure Current visit: Yes Status: Acute Not in exacerbation. Continue home meds. Qualifiers: Heart failure type: diastolic Heart failure chronicity: chronic Qualified Code(s): I50.32 - Chronic diastolic (congestive) heart failure (8) DVT prophylaxis Current visit: Yes Status: Acute INR is 3.0. Hold Coumadin in case any surgical needs. Place [facility] Internal Medicine - H&P: HPI Chief complaint: Knee pain Admitted From: Emergency Dept Plans for Post Hospital Care: Home History of present illness: Mr. St is a 86 year old male with Hx of CHF, HTN, CKD stage III, s/p AVR, Hx of PE, CAD s/p CABG. s/p PPM, present to ER after he was told to come in for concerns regarding septic right knee. The patient had right total knee arthroplasty about 9 years ago at [facility]. He does not know who his orthopedic doctor is anymore. The patient fell about a week ago on his right knee and has noted pain and swelling. No open cuts. He went to see his primary care physician and underwent a knee tap on 04/15. Cultures came back positive for Klebsiella pneumonia. He was called to come in. Reports difficulty moving his knee and states he has difficulty ambulating. Lives alone and is walker dependent. Patient denies any fevers, chills, nausea, vomiting, headache, blurry vision, chest pain, shortness breath, abdominal pain, urinary symptoms, or neurological symptoms. Orthopedics were contacted at the ED and will see the patient. The patient was given ceftriaxone and orthopedics recommended Ancef. The patient is hemodynamically stable in the ED revealed blood pressure was initially elevated at 182/75. When I was evaluating the patient his blood pressure was in the 150s systolically. Laboratory workup significant for WBC count of 15.8, creatinine consistent with baseline. INR of 3.0 but the patient is on Coumadin. Past Med Surg Social Fam HX - Past Medical History Medical history: CHF, coronary artery disease, hyperlipidemia, hypertension, pulmonary embolus, valvular heart disease Psychiatric history: no psych history - Past Surgical History Surgical History: cholecystectomy, coronary bypass (CABG), heart valve replacement - Social History Smoking Status: Never smoker Smokeless Tobacco Status: No Alcohol use: none Drug use: none - Family History Father Family Member Ethnicity: Non- Living Status: Hx Family Cardiac Disorders: Yes (DVT) Sister Family Member Ethnicity: Non- Living Status: Still Living Hx Family Cardiac Disorders: Yes (Stroke) Mother Adopted: No Family Member Ethnicity: Non- Living Status: Hx Family Cardiac Disorders: Yes Hx Family Respiratory Disorders: No Hx Family Cancer: Yes (Lung) Hx Family GI Disorders: No Hx Family Endocrine Disorder: Yes Hx Family Neuromuscular Disorders: No Hx Family Neurologic Disorders: No Hx Family HEENT Disorders: No Hx Family Autoimmune Disorders: No Internal Medicine - H&P: Meds Aspirin 81 mg PO DAILY 11/04/14 [History] Atorvastatin [Lipitor] 40 mg PO HS 11/04/14 [History] Cholecalciferol (Vitamin D3) [Vitamin D3] 1,000 unit PO DAILY 11/04/14 [History] Isosorbide MONOnitrate (24 HR) [Imdur] 30 mg PO DAILY 11/04/14 [History] Metoprolol XL (24 HR) Succ [Toprol XL] 100 mg PO DAILY 11/04/14 [History] NIFEdipine [Nifedical Xl] 60 mg PO DAILY 11/04/14 [History] Lactobacillus Acidophilus [Acidophilus] 1 cap PO DAILY 10/24/15 [History] Acetaminophen [Tylenol] 500 mg PO Q6HR PRN #10 tablet 06/14/16 [Rx] Furosemide [Lasix] 20 mg PO DAILY 01/27/17 [History] Sertraline [Zoloft] 25 mg PO DAILY 01/27/17 [History] Tamsulosin [Flomax] 0.4 mg PO DAILY 01/27/17 [History] traZODone [TraZODone] 50 mg PO HS 01/27/17 [History] cloNIDine HCl [CloNIDine HCl] 0.1 mg PO BID 03/12/17 [History] Ferrous Sulfate 325 mg PO DAILY 03/13/17 [History] Omeprazole [PriLOSEC] 40 mg PO DAILY 03/13/17 [History] Warfarin perPT [Coumadin perPT] 3 mg PO 1800 #30 tablet 03/18/17 [Rx] 3 Allergy/AdvReac Type Severity Reaction Status Date / Time No Known Allergies Allergy Unverified 10/04/16 10:10 All Systems PM: A 10-system review of systems was performed and is negative for pertinent findings except as documented above in the HPI. Review of systems: All systems reviewed are negative except as mentioned above - Constitutional Vitals: Temp Pulse Resp BP Pulse Ox 97.4 F L 71 16 160/78 93 04/17/17 16:42 04/17/17 17:37 04/17/17 19:00 04/17/17 19:00 04/17/17 17:37 Exam: GEN: NAD HEENT: AT, NC, No cyanosis, oral mucosa is moist, No JVD Lymphatics: No lymphadenoapthy Eyes: Extrocular muscles intact, anicteric CVS:RRR. S1, S2, No m/r/g RESP: CTAB ABD: Soft, NT, ND, +BS EXT: Right knee swelling. Surgical scar noted. No drainage. Unable to flex his right knee. No rashes, 2+ DP NEURO: Nonfocal, CN II-XII intact, No focal motor or sensory deficits Psych: Cooperative, Not anxious or depressed Internal Med - H&P Results - Labs CBC & Chem 7: 04/17/17 17:26 04/17/17 17:26
[2017-04-17] MEDS ORDERED: Acetaminophen 325 MG TABLET PO PRN (19:40)
[2017-04-17] MEDS ORDERED: Naloxone 0.4 MG/ML INJ IVP PRN (19:40)
[2017-04-17] MEDS: *HR* HYDROcodone/Acet 5/325 mg TABLET PO PRN (22:52)
[2017-04-18] MEDS ORDERED: ceFAZolin 1,000 MG in Water for inj. (sterile) 20 ML 10 ML IVPB SCH
[2017-04-18] MEDS: ceFAZolin 1,000 MG in Water for inj. (sterile) 20 ML 10 ML IVP SCH ×4 (00:35→23:17)
[2017-04-18 02:19] LABS: Hematocrit 30.3 % (37.5-50.1); Hemoglobin 9.5 g/dL (12.9-16.9); Immature Granulocytes % 0.6 % (0-4); Lymphocytes % 6.1 %; Mean Corpuscular HGB Conc 31.4 g/dL (31.6-35.5); Mean Corpuscular Hemoglobin 27.6 pg (28.0-33.3); Mean Corpuscular Volume 88.1 fL (83.0-100.0); Mean Platelet Volume 9.9 fL (9.4-12.4); Platelet Count 332 K/mcL (140-400); Red Blood Count 3.44 M/mcL (4.19-5.50); Red Cell Distribution Width 16.5 % (11.5-14.5); Segmented Neutrophils % 90.3 %
[2017-04-18 02:20] LABS: Basophils % 0.1 %; Lymphocytes # 0.8 K/mcL (0.6-4.6); Monocytes # 0.4 K/mcL (0.0-1.3); Monocytes % 2.9 %; Neutrophils # 11.2 K/mcL (1.6-8.9)
[2017-04-18 02:40] LABS: Calcium 8.8 mg/dL (8.6-10.3); Magnesium 2.1 mg/dL (1.6-2.6); Potassium 4.2 mEq/L (3.5-5.1)
[2017-04-18] MEDS: cloNIDine HCl 0.1 MG TABLET PO SCH ×3 (03:57→23:17)
[2017-04-18] MEDS: Metoprolol XL (24 HR) Succ 50 MG TAB.ER.24H PO SCH ×2 (03:57→08:40)
--- NOTE | 2017-04-18 07:11 | Orthopedic Consult Note ---
Date of Encounter: 04/18/17 Time of Encounter: 07:09 Assessment and Plan (1) Septic arthritis Current Visit: Yes Status: Acute The diagnosis and treatment recommendations were discussed with Javier. He has an infection in a previously replaced knee. This does seem to be an acute infection. He denies having problems prior to this episode. We will therefore perform right knee irrigation and debridement with poly-exchange. Nothing by mouth today for surgery. Risks and benefits of the procedure were discussed with patient and he does agree to proceed. Qualifiers: Septic arthritis location: knee Septic arthritis organism: due to other bacteria Laterality: right Qualified Code(s): M00.861 - Arthritis due to other bacteria, right knee History of Present Illness HPI: Mr. St is a 86 year old male who had a right TKA done at [facility] by Dr Munoz 9 years ago. He had a recent fall and developed swelling and pain in the right knee approximately 5 days ago. He had the knee aspirated on Tuesday at an outpatient office and the results came back last night which were positive for Klebsiella infection in the knee sutures instructor, emergency department. He denies any other complaints other than the knee pain. He denies fevers, chills. Denies any chest pain or shortness of breath. Past Med Surg Social Fam HX - Past Medical History Medical history: CHF, coronary artery disease, hyperlipidemia, hypertension, pulmonary embolus, valvular heart disease Psychiatric history: no psych history - Past Surgical History Surgical History: cholecystectomy, coronary bypass (CABG), heart valve replacement - Social History Smoking Status: Never smoker Smokeless Tobacco Status: No Alcohol use: none Drug use: none - Family History Father Family Member Ethnicity: Non- Living Status: Hx Family Cardiac Disorders: Yes (DVT) Sister Family Member Ethnicity: Non- Living Status: Still Living Hx Family Cardiac Disorders: Yes (Stroke) Mother Adopted: No Family Member Ethnicity: Non- Living Status: Hx Family Cardiac Disorders: Yes Hx Family Respiratory Disorders: No Hx Family Cancer: Yes (Lung) Hx Family GI Disorders: No Hx Family Endocrine Disorder: Yes Hx Family Neuromuscular Disorders: No Hx Family Neurologic Disorders: No Hx Family HEENT Disorders: No Hx Family Autoimmune Disorders: No Medications and Allergies Aspirin 81 mg PO DAILY 11/04/14 [History] Atorvastatin [Lipitor] 40 mg PO HS 11/04/14 [History] Cholecalciferol (Vitamin D3) [Vitamin D3] 1,000 unit PO DAILY 11/04/14 [History] Isosorbide MONOnitrate (24 HR) [Imdur] 30 mg PO DAILY 11/04/14 [History] Metoprolol XL (24 HR) Succ [Toprol XL] 100 mg PO DAILY 11/04/14 [History] NIFEdipine [Nifedical Xl] 60 mg PO DAILY 11/04/14 [History] Lactobacillus Acidophilus [Acidophilus] 1 cap PO DAILY 10/24/15 [History] Acetaminophen [Tylenol] 500 mg PO Q6HR PRN #10 tablet 06/14/16 [Rx] Furosemide [Lasix] 20 mg PO DAILY 01/27/17 [History] Sertraline [Zoloft] 25 mg PO DAILY 01/27/17 [History] Tamsulosin [Flomax] 0.4 mg PO DAILY 01/27/17 [History] traZODone [TraZODone] 50 mg PO HS 01/27/17 [History] cloNIDine HCl [CloNIDine HCl] 0.1 mg PO BID 03/12/17 [History] Ferrous Sulfate 325 mg PO DAILY 03/13/17 [History] Omeprazole [PriLOSEC] 40 mg PO DAILY 03/13/17 [History] Warfarin perPT [Coumadin perPT] 3 mg PO 1800 #30 tablet 03/18/17 [Rx] 3 Allergy/AdvReac Type Severity Reaction Status Date / Time No Known Allergies Allergy Unverified 10/04/16 10:10 All Systems Reviewed: The remainder of the systems were reviewed and are negative Physical Exam - Constitutional Vitals: Temp Pulse Resp BP Pulse Ox 97.7 F 78 15 142/78 94 04/18/17 05:59 04/18/17 05:59 04/18/17 05:59 04/18/17 05:59 04/18/17 05:59 Exam: Consult Exam: Constitutional -Vitals reviewed -The patient is well developed and well nourished. -Mood is pleasant. -The patient is well groomed. Psychiatric -The patient is fully alert and oriented x 3. Respiratory: -Respiratory effort normal Abdomen: -Soft abdomen -Non tender -Non distended: Left upper extremity: -No deformities. The overlying skin is intact. No obvious signs of acute trauma. -No tenderness to palpation throughout. -No significant pain with passive motion of the shoulder, elbow, wrist, and fingers within the limits of the bed. -Able to make an "OK" sign, cross the index and long fingers, and extend the thumb. -Sensation grossly intact to light touch throughout the median, radial, and ulnar distributions. -Radial pulse is present; Fingers have good capillary refill. Right upper extremity: -No deformities. The overlying skin is intact. No obvious signs of acute trauma. -No tenderness to palpation throughout. -No significant pain with passive motion of the shoulder, elbow, wrist, and fingers within the limits of the bed. -Able to make an "OK" sign, cross the index and long fingers, and extend the thumb. -Sensation grossly intact to light touch throughout the median, radial, and ulnar distributions. -Radial pulse is present; Fingers have good capillary refill. Left lower extremity: -No deformities. The overlying skin is intact. No obvious signs of acute trauma. -No tenderness to palpation throughout. -No pain with passive motion of the hip, knee, ankle, and toes within the limits of the bed. -No pain with axial loading of the thigh. -Able to dorsiflex and plantarflex the ankle and toes. -Sensation is grossly intact to light touch throughout the sural, saphenous, superficial peroneal, and deep peroneal distributions. -Toes have good capillary refill. Right lower extremity: -No deformities. The overlying skin is intact. No obvious signs of acute trauma. -+effusion, no cellulitis -Pain with ROM at the knee. -Able to dorsiflex and plantarflex the ankle and toes. -Sensation is grossly intact to light touch throughout the sural, saphenous, superficial peroneal, and deep peroneal distributions. -Toes have good capillary refill. Results - Labs Result Diagrams: 04/18/17 01:05 04/18/17 01:05 Labs: Abnormal lab results WBC 12.4 K/mcL (4.3-11.1) H 04/18/17 01:05 RBC 3.44 M/mcL (4.19-5.50) L 04/18/17 01:05 Hgb 9.5 g/dL (12.9-16.9) L 04/18/17 01:05 Hct 30.3 % (37.5-50.1) L 04/18/17 01:05 MCH 27.6 pg (28.0-33.3) L 04/18/17 01:05 MCHC 31.4 g/dL (31.6-35.5) L 04/18/17 01:05 RDW 16.5 % (11.5-14.5) H 04/18/17 01:05 Neutrophils # 11.2 K/mcL (1.6-8.9) H 04/18/17 01:05 PT 32.8 Seconds (9.4-12.1) H 04/17/17 17:26 Carbon Dioxide 30 mEq/L (23-29) H 04/18/17 01:05 BUN 54 mg/dL (8-23) H 04/18/17 01:05 Creatinine 1.37 mg/dL (0.70-1.30) H 04/18/17 01:05 Est GFR (Non-Af Amer) 49 (> 60) L 04/18/17 01:05 BUN/Creatinine Ratio 39 (6-26) H 04/18/17 01:05 Glucose 110 mg/dL (70-105) H 04/18/17 01:05 Calculated Osmolality 301 (280-300) H 04/18/17 01:05 Albumin 3.3 g/dL (3.5-5.7) L 04/17/17 17:26 Globulin 3.9 g/dL (2.4-3.5) H 04/17/17 17:26 Albumin/Globulin Ratio 0.8 (1.1-2.2) L 04/17/17 17:26 H & H 04/18/17 Range/Units 01:05 Hgb 9.5 L (12.9-16.9) g/dL Hct 30.3 L (37.5-50.1) % All other labs normal. - Diagnostic results Knee x-ray: report reviewed, image reviewed (TKA in place without evidence of loosening) Consult Discharge Plan - Plan Referrals: Dagoberto Blunt MD [Primary Care Provider] -
[2017-04-18] MEDS ORDERED: NIFEdipine XL (24 HR) 60 MG TAB.ER.24 PO SCH (09:00)
[2017-04-18] MEDS ORDERED: Isosorbide MONOnitrate (24 HR) 30 MG TAB.ER.24H PO SCH (09:00)
[2017-04-18] MEDS ORDERED: Aspirin 81 MG TAB.CHEW PO SCH (09:00)
[2017-04-18 09:28] LABS: Prothrombin Time 44.3 Seconds (9.4-12.1)
[2017-04-18] MEDS ORDERED: 0.9 % Sodium Chloride 250 ML ONE (12:11)
--- NOTE | 2017-04-18 12:59 | Internal Med Progress Note ---
Date of Encounter: 04/18/17 Time of Encounter: 12:57 - Assessment and plan (1) Septic arthritis Current Visit: Yes Status: Acute Assessment and plan: Remains nothing by mouth. Continue with Ancef. Plans for or by orthopedics later today. Repeat INR after FFP's. If needed surgery will be pushed out tomorrow. Follow up on cultures. Pain control Qualifiers: Septic arthritis location: knee Septic arthritis organism: due to other bacteria Laterality: right Qualified Code(s): M00.861 - Arthritis due to other bacteria, right knee (2) CKD (chronic kidney disease) Current Visit: Yes Status: Acute Assessment and plan: Around baseline. We will continue to monitor. Qualifiers: Chronic kidney disease stage: stage 3 (moderate) Qualified Code(s): N18.3 - Chronic kidney disease, stage 3 (moderate) (3) CAD (coronary artery disease) Current Visit: No Status: Chronic Assessment and plan: Continue with cardiac meds. Hold antiplatelets. Qualifiers: Coronary Disease-Associated Artery/Lesion type: [place] artery [place] vs. transplanted heart: eagle heart Associated angina: without angina Qualified Code(s): I25.10 - Atherosclerotic heart disease of eagle coronary artery without angina pectoris (4) HLD (hyperlipidemia) Current Visit: No Status: Chronic Assessment and plan: Continue statin Qualifiers: Hyperlipidemia type: pure hypercholesterolemia Qualified Code(s): E78.00 - Pure hypercholesterolemia, unspecified; E78.0 - Pure hypercholesterolemia (5) HTN (hypertension) Current Visit: No Status: Chronic Assessment and plan: Continue home meds. Watch blood pressure today as he receivedToprol-XL. Qualifiers: Hypertension type: essential hypertension Qualified Code(s): I10 - Essential (primary) hypertension (6) Hx pulmonary embolism Current Visit: No Status: Chronic Assessment and plan: INR 4.0. Getting FFPs due to above. (7) Heart failure Current Visit: Yes Status: Acute Assessment and plan: Not in exacerbation. Continue home meds. Qualifiers: Heart failure type: diastolic Heart failure chronicity: chronic Qualified Code(s): I50.32 - Chronic diastolic (congestive) heart failure (8) DVT prophylaxis Current Visit: Yes Status: Acute Assessment and plan: INR 4.0. Hold Coumadin. SCDs. - Subjective Interval history: No acute events. The patient was seen and examined. Receiving FFP is in anticipation for surgery later today. The nurse tells me that the patient had accidentally received 2 doses of his Toprol-XL this morning. His blood pressure and heart rate remained stable. Incident report has been filed. He is afebrile. - Constitutional Vitals: Temp Pulse Resp BP Pulse Ox 97.7 F 98 16 113/73 95 04/18/17 12:36 04/18/17 12:36 04/18/17 12:36 04/18/17 12:36 04/18/17 12:36 Exam: GEN: NAD CVS:RRR. S1, S2, No m/r/g RESP: CTAB ABD: Soft, NT, ND, +BS EXT: Right knee swelling. Surgical scar noted. No drainage. Unable to flex his right knee. No rashes, 2+ DP NEURO: Nonfocal, CN II-XII intact, No focal motor or sensory deficits Internal Medicine: Result - Labs CBC & Chem 7: 04/18/17 01:05 04/18/17 01:05 Labs: Short CBC 04/18/17 Range/Units 01:05 WBC 12.4 H (4.3-11.1) K/mcL Hgb 9.5 L (12.9-16.9) g/dL Hct 30.3 L (37.5-50.1) % Plt Count 332 (140-400) K/mcL Neutrophils # 11.2 H (1.6-8.9) K/mcL BMP 04/18/17 01:05 Sodium 138 Potassium 4.2 Chloride 100 Carbon Dioxide 30 H BUN 54 H Creatinine 1.37 H Glucose 110 H Calcium 8.8 - ABG Interpretation ABG results: PT/INR, D-dimer PT 44.3 Seconds (9.4-12.1) H* 04/18/17 08:40 Consult Discharge Plan - Plan Referrals: Dagoberto Blunt MD [Primary Care Provider] -
[2017-04-18] MEDS: *HR* HYDROcodone/Acet 5/325 mg TABLET PO PRN ×2 (13:14→23:16)
[2017-04-18] MEDS ORDERED: 0.9 % Sodium Chloride 500 ML ONE (13:17)
[2017-04-18] MEDS ORDERED: 0.9 % Sodium Chloride Mini Bag 200 ML ONE (13:27)
[2017-04-18] MEDS ORDERED: Lidocaine -MPF 4% 5 ML AMPUL ONE (16:01)
[2017-04-18] MEDS ORDERED: *HR* Propofol 200 MG/20 ML VIAL IVP ONE ×2 (16:01→16:23)
[2017-04-18] MEDS ORDERED: Ondansetron 4 MG/2 ML VIAL ONE ×2 (16:01→16:23)
[2017-04-18] MEDS ORDERED: Lidocaine -MPF 2% 2 ML VIAL ONE ×2 (16:01→16:23)
[2017-04-18] MEDS ORDERED: *HR* Succinylcholine 200 MG/10 ML VIAL IVP ONE ×2 (16:01→16:23)
[2017-04-18] MEDS ORDERED: Dexamethasone 4 MG/ML VIAL ONE ×2 (16:01→16:23)
[2017-04-18] MEDS ORDERED: *HR* FentaNYL (PF) 100 MCG/2 ML VIAL ONE ×3 (16:01→18:21)
[2017-04-18] MEDS ORDERED: *HR* Midazolam HCl 2 MG/2 ML VIAL ONE (16:23)
[2017-04-18] MEDS ORDERED: *HR* Rocuronium Bromide 50 MG/5 ML VIAL ONE (16:23)
[2017-04-18] MEDS ORDERED: Ketorolac 30 MG/ML VIAL ONE (16:23)
[2017-04-18 16:38] LABS: INR 2.4
[2017-04-18] MEDS ORDERED: Tranexamic Acid 1,000 MG/10 ML VIAL ONE ×2 (16:39→16:46)
[2017-04-18] MEDS ORDERED: Ethanol\\Acetic Acid\\Na Ace\\Ben 1,000 ML IRRIG.SOLN IR ONE (16:40)
--- NOTE | 2017-04-18 16:45 | Anesthesia Evaluation PreOp ---
Date of Encounter: 04/18/17 Time of Encounter: 16:45 - Past History Planned Operation: Rt Knee I and D Cardiac History: HTN, Hyperlipidemia, Cardiac Surgery (Valve Repair), Pacemaker/ ICD (Last checked 1 month ago), Other (CAD) Pulmonary History: Denies Any Significant HX BAG FILLER History: Denies Any Significant HX Other Medical History: Renal (CKD) Anesthesia History: No Prior Anesthetic Complications Alcohol Use: none Drug use: none Medications and Allergies Aspirin 81 mg PO DAILY 11/04/14 [History] Atorvastatin [Lipitor] 40 mg PO HS 11/04/14 [History] Cholecalciferol (Vitamin D3) [Vitamin D3] 1,000 unit PO DAILY 11/04/14 [History] Metoprolol XL (24 HR) Succ [Toprol XL] 100 mg PO DAILY 11/04/14 [History] Acetaminophen [Tylenol] 500 mg PO Q6HR PRN #10 tablet 06/14/16 [Rx] Sertraline [Zoloft] 25 mg PO DAILY 01/27/17 [History] Tamsulosin [Flomax] 0.4 mg PO DAILY 01/27/17 [History] traZODone [TraZODone] 50 mg PO HS 01/27/17 [History] cloNIDine HCl [CloNIDine HCl] 0.1 mg PO TID 03/12/17 [History] Ferrous Sulfate 325 mg PO DAILY 03/13/17 [History] Omeprazole [PriLOSEC] 40 mg PO DAILY 03/13/17 [History] Bumetanide [Bumex] 1.5 mg PO DAILY 04/18/17 [History] Fluticasone Propionate Nasal [Flonase] 1 spr NS DAILY 04/18/17 [History] Isosorbide MONOnitrate (24 HR) [Imdur] 60 mg PO DAILY 04/18/17 [History] Lisinopril [Zestril] 10 mg PO DAILY 04/18/17 [History] NIFEdipine XL (24 HR) [Procardia XL] 30 mg PO DAILY 04/18/17 [History] Potassium Chloride [K-Tab ER] 20 meq PO BID 04/18/17 [History] Warfarin Sodium [Warfarin Sodium] 1.25 mg PO DAILY 04/18/17 [History] 3 Allergy/AdvReac Type Severity Reaction Status Date / Time No Known Allergies Allergy Verified 04/18/17 09:56 - Meds/Allergy Pre-op Review Medications Reviewed: Yes Allergies Reviewed: Yes Beta Blockers on Current Med List: Yes (Metoprolol today 0330) Anesthesia Results - Labs 04/18/17 01:05 04/18/17 01:05 - Imaging EKG: report reviewed (Electronic Atrial Pacemaker) Additional studies: LVEF 60% Anesthesia Exam O2 Sat Weight 70.08 kg Weight 69.853 kg O2 Sat by Pulse Oximetry 94 O2 Sat by Pulse Oximetry 94 O2 Sat by Pulse Oximetry 93 O2 Sat by Pulse Oximetry 94 O2 Sat by Pulse Oximetry 94 O2 Sat by Pulse Oximetry 95 O2 Sat by Pulse Oximetry 95 O2 Sat by Pulse Oximetry 95 O2 Sat by Pulse Oximetry 96 O2 Sat by Pulse Oximetry 96 O2 Sat by Pulse Oximetry 96 O2 Sat by Pulse Oximetry 94 O2 Sat by Pulse Oximetry 96 O2 Sat by Pulse Oximetry 95 O2 Sat by Pulse Oximetry 93 O2 Sat by Pulse Oximetry 94 Vital Signs Temp Pulse Resp BP Pulse Ox 97.4 F L 71 20 182/75 98 04/17/17 16:42 04/17/17 16:42 04/17/17 16:42 04/17/17 16:42 04/17/17 16:42 Height: 6'0 Weight: 154 lbs NPO (# of Hours): MN Pain Scale: 0 - HEENT Pupil (Motor): Pupils equal, EOMI Mallampati: II Teeth: Normal Oral Opening: Greater than 3 - BAG FILLER LOC: Oriented BAG FILLER Motor: Normal RUE, Normal LUE, Normal RLE, Normal LLE, Normal Face BAG FILLER Sensory: Normal: RUE, LUE, RLE, LLE, Face - Cardiac Rhythm: Regular Murmur: None JVD: No Carotid Bruit: No - Pulmonary Breath Sounds: bilateral Clear Respiratory Effort: Symmetrical Anesthesia Assess/Plan ASA Score: 3 Modified [place] Scale for Level of Consciousness: Cooperative, oriented, and tranquil Anesthetic Plan: General Autologous Blood: No Monitoring Plan: Standard Monitors Recovery Plan: PACU (Discussed GA, agrees to proceed)
[2017-04-18] MEDS ORDERED: *HR* PHENYLEPHRINE 1,000 MCG/10 ML SYRINGE IVP ONE (17:25)
[2017-04-18] MEDS ORDERED: Ondansetron 4 MG/2 ML VIAL IVP PRN ×2 (18:07→20:13)
--- NOTE | 2017-04-18 19:19 | Orthopedic Operative Note ---
Date of procedure: 04/18/17 Pre-op diagnosis: Right knee infected TKA Post-op diagnosis: same Procedure: 1. Right knee Irrigation and Debridement and polyexchange 2. Complete synovectomy R knee Indications: This is a 86 yo M who fell 5 days ago onto his knee. He developed pain and swelling in the knee. He had a previous TKA done at [place] 9 years ago. He was seen in an outside office and had the knee aspirated, yesterday cultures came back positive for Klebsiella so he was instructed to come to the ED. He was then admitted for surgical management and antibiotic treatment. Due to the septic TKA, the decision was made to urgently perform irrigation and debridement with poly-exchange and complete synovectomies of the right knee. The risks and benefits of the procedure were fully explained to the patient. These risks include, but are not limited to, the risk of continued infection, neurovascular injury, continued pain and stiffness of the knee, need for further surgery, DVT, PE, loss of limb and loss of life. The patient did understand all of these risks and wishes to proceed. Informed consent was then obtained. Operative procedure: The patient was brought back to the OR suite by the anesthesia staff. General anesthetic was administered by anesthesia. The patient was then placed supine on the operating table and all bony prominences were padded. The anesthesiologist then performed successful general anesthetic for the remainder of the case. The tourniquet was then applied to the right upper thigh and the right lower extremities were then prepped and draped in the normal sterile orthopedic fashion. The patient was on scheduled antibiotics which were continued. A timeout was performed confirming the correct patient, site and side, procedure to be performed and any allergies. All were in agreement and we did proceed. The tourniquet was elevated to 300 mmHg. A midline 12 cm incision was made from the superior pole of the patella to the tibial tubercle along the previous incision. A medial parapatellar arthrotomy was then used. Joint effusion was expressed from the joint, this did not appear grossly purulent but there was significant scarring and erythema throughout the knee. A complete synovectomy was then performed starting proximally over the femur and extending into the medial and lateral gutters and finally down to the proximal tibia and extensor mechanism. The knee was then flexed and the tibia was displaced anteriorly. The polyethylene was removed with an osteotome and cartilage clamp. At that point we thoroughly irrigated the knee, first with bactisure solution, and finally 6 L of normal saline. Following this the appropriately sized polyethylene component was opened. The tibia was again subluxated and the poly was placed. It was quite difficult to place the poly but it was seated appropriately. Irricept and then sterile saline were then lavaged through the joint. The deep retinacular tissue was closed with 3 simple [id number] sutures with PDS and a 0 Quill. The tourniquet was let down and subcutaneous tissue was then closed with 2-0 and 3-0 stratafix. Sterile dressing was placed on the right knee. The patient was awoken by anesthesia and taken to the PACU in stable condition. There were no complications through the case. Due to the complex nature of the case with significant scarring, difficult exposure and revision nature of the surgery and lack of qualified resident or PA assistance, Dr Martin did act as a co-surgeon for this case. Implants: S&N jay II deep flexion size 9 mm CR poly Complications: none Anesthesia: GETA Surgeon: Esau Hunter (Co-surgeon: Mario) Was there an sound assistant present: No Estimated blood loss (cc): 50 Condition: stable Disposition: PACU
[2017-04-18] MEDS: MORPHINE SUL Oral CONC 10 MG/0.5 ML ORAL.SYG SL PRN ×2 (19:43→19:55)
--- NOTE | 2017-04-18 20:00 | Anesthesia Evaluation Post Op ---
Date of Encounter: 04/18/17 Time of Encounter: 19:59 - Vital Signs Vital Signs: Vital Signs/O2 Sat, Most Current Temp Pulse Resp BP Pulse Ox 97.3 F L 60 18 160/74 100 04/18/17 19:55 04/18/17 19:55 04/18/17 19:55 04/18/17 19:55 04/18/17 19:55 - Lungs Lungs: Clear Ascult./Percussion - Airway Airway: Non-obstructed - Cardiovascular Regular Rate - Mental Status Mental Status: Alert & Oriented, Answers Appropriately - Pain Pain Scale: 6 Pain Scale used: Numeric (1 - 10) - Nausea Vomiting Nausea Vomiting: Not Present - Hydration Hydration: Ice chips - Discharge PostOp Status: Transfer Patient to floor
[2017-04-18] MEDS ORDERED: Naloxone 0.4 MG/ML INJ IVP PRN (20:13)
[2017-04-18] MEDS ORDERED: *HR* HYDROcodone/Acet 5/325 mg TABLET PO PRN (20:13)
[2017-04-18] MEDS ORDERED: MORPHINE SUL Oral CONC 10 MG/0.5 ML ORAL.SYG SL PRN (20:13)
[2017-04-18] MEDS ORDERED: Acetaminophen 325 MG TABLET PO PRN (20:13)
[2017-04-19] MEDS: MORPHINE SUL Oral CONC 10 MG/0.5 ML ORAL.SYG SL PRN (00:23)
[2017-04-19 06:36] LABS: Basophils % 0.1 %; Hematocrit 32.8 % (37.5-50.1); Hemoglobin 10.1 g/dL (12.9-16.9); Immature Granulocytes % 0.5 % (0-4); Lymphocytes # 0.6 K/mcL (0.6-4.6); Lymphocytes % 3.4 %; Mean Corpuscular HGB Conc 30.8 g/dL (31.6-35.5); Mean Corpuscular Hemoglobin 27.2 pg (28.0-33.3); Mean Corpuscular Volume 88.4 fL (83.0-100.0); Mean Platelet Volume 9.8 fL (9.4-12.4); Monocytes # 0.9 K/mcL (0.0-1.3); Monocytes % 5.3 %; Neutrophils # 15.3 K/mcL (1.6-8.9); Platelet Count 418 K/mcL (140-400); Red Blood Count 3.71 M/mcL (4.19-5.50); Red Cell Distribution Width 16.3 % (11.5-14.5); Segmented Neutrophils % 90.7 %
[2017-04-19 06:40] LABS: Prothrombin Time 33.3 Seconds (9.4-12.1)
[2017-04-19 06:51] LABS: BUN/Creatinine Ratio 35 (6-26); Blood Urea Nitrogen 47 mg/dL (8-23); Calcium 9.1 mg/dL (8.6-10.3); Carbon Dioxide 29 mEq/L (23-29); Chloride 99 mEq/L (98-107); Glucose 163 mg/dL (70-105); Magnesium 2.2 mg/dL (1.6-2.6); Osmolality,Calculated 308 (280-300); Sodium 141 mEq/L (136-145); eGFR For African Americans > 60 (> 60); eGFR For Non-African Americans 50 (> 60)
--- NOTE | 2017-04-19 07:05 | Electrocardiograph Report ---
[place] [id number] Test Date: 2017-04-17 Pat Name: Javier St Department: 104 Room: [facility] Gender: M Information Systems Architect: : [id number] Requested By: Lino Trinidad Order Number: [id number] Reading MD: Chuy Shelton MD Measurements Intervals [place] Rate: 69 P: 109 WV: 268 QRS: -82 QRSD: 161 T: -50 QT: 476 QTc: 495 Interpretive Statements ELECTRONIC ATRIAL PACEMAKER ELECTRONIC VENTRICULAR PACEMAKER -- CONTOUR ANALYSIS BASED ON INTRINSIC RHYTHM LEFT ANTERIOR FASCICULAR BLOCK Electronically Signed On 04-19-2017 7:04:01 EDT by Chuy Shelton MD
[2017-04-19] MEDS: NIFEdipine XL (24 HR) 60 MG TAB.ER.24 PO SCH (08:58)
[2017-04-19] MEDS: Metoprolol XL (24 HR) Succ 50 MG TAB.ER.24H PO SCH (08:58)
[2017-04-19] MEDS: Aspirin 81 MG TAB.CHEW PO SCH (08:59)
[2017-04-19] MEDS: Isosorbide MONOnitrate (24 HR) 30 MG TAB.ER.24H PO SCH (08:59)
[2017-04-19] MEDS: ceFAZolin 1,000 MG in Water for inj. (sterile) 20 ML 10 ML IVP SCH ×2 (08:59→16:09)
[2017-04-19] MEDS: cloNIDine HCl 0.1 MG TABLET PO SCH ×2 (08:59→21:17)
[2017-04-19] MEDS: *HR* HYDROcodone/Acet 5/325 mg TABLET PO PRN ×3 (08:59→21:17)
--- NOTE | 2017-04-19 12:23 | Orthopedics Progress Note ---
Date of Encounter: 04/19/17 Time of Encounter: 12:22 - Assessment and Plan (1) Septic arthritis Current Visit: Yes Status: Acute Qualifiers: Septic arthritis location: knee Septic arthritis organism: due to other bacteria Laterality: right Qualified Code(s): M00.861 - Arthritis due to other bacteria, right knee Subjective Interval history: No overnight issues. Denies f/c/ns. Knee pain tolerable AFVSS Ctx +Klebsiella GEN; NAD, AAOx3 RLE: Dress c/d/i DNVI s/s/t/sp/dp +EHL/PF/DF POD#1 s/p R knee I&D with polyexchange for septic arthritis -WBAT with PT -Continue antibiotics as per medicine -No plans for further surgery Objective Vital signs: Vital Signs Temp Pulse Resp BP Pulse Ox 04/19/17 11:39 97.9 F 77 18 111/74 93 04/19/17 06:38 98.0 F 91 18 168/72 94 04/19/17 04:24 97.8 F 86 18 168/73 04/19/17 01:32 98.4 F 81 18 142/75 96 04/18/17 23:30 98.5 F 82 16 146/88 95 04/18/17 22:30 98.3 F 82 16 142/84 98 04/18/17 21:30 98.5 F 84 16 96 04/18/17 21:00 98.2 F 83 16 136/86 96 04/18/17 20:30 98.2 F 80 16 132/78 96 04/18/17 20:05 97.3 F L 66 18 162/75 99 04/18/17 19:55 97.3 F L 60 18 160/74 100 04/18/17 19:45 100 18 127/71 99 04/18/17 19:35 77 18 149/71 98 04/18/17 19:25 98.1 F 98 18 103/60 95 04/18/17 15:12 97.5 F L 98 16 131/62 94 04/18/17 14:45 97.5 F L 98 15 101/57 94 04/18/17 14:35 97.5 F L 84 16 109/67 93 04/18/17 14:24 97.5 F L 75 16 127/66 94 04/18/17 13:44 97.4 F L 82 16 112/68 94 04/18/17 13:40 97.6 F 64 16 135/65 95 04/18/17 13:39 97.6 F 64 16 135/65 95 04/18/17 12:36 97.7 F 98 16 113/73 95 Intake and Output 04/18/17 04/19/17 04/19/17 23:59 07:59 15:59 Intake Total 130 / 130 Output Total 175 / 175 Balance -155 / -155 130 / 130 Intake: IV Fluids 10 10 Ancef 1,000 MG In Water for inj . (sterile) 10 ML @ 200 mls/hr IVP Q8HR SOFYA Rx#:[id number] Oral 120 / 120 Output: Urine 125 / 125 Estimated Blood Loss 50 / 50 Other: Meal Breakfast Percent of Meal Consumed 25% # Voids 1 # Urine Diapers 1 Weight 65.9 kg Patient Weight 04/19/17 23:59 Weight 65.9 kg - Labs CBC & BMP: 04/19/17 05:51 04/19/17 05:51 Labs: Abnormal lab results WBC 16.9 K/mcL (4.3-11.1) H 04/19/17 05:51 RBC 3.71 M/mcL (4.19-5.50) L 04/19/17 05:51 Hgb 10.1 g/dL (12.9-16.9) L 04/19/17 05:51 Hct 32.8 % (37.5-50.1) L 04/19/17 05:51 MCH 27.2 pg (28.0-33.3) L 04/19/17 05:51 MCHC 30.8 g/dL (31.6-35.5) L 04/19/17 05:51 RDW 16.3 % (11.5-14.5) H 04/19/17 05:51 Plt Count 418 K/mcL (140-400) H 04/19/17 05:51 Neutrophils # 15.3 K/mcL (1.6-8.9) H 04/19/17 05:51 PT 33.3 Seconds (9.4-12.1) H 04/19/17 05:51 BUN 47 mg/dL (8-23) H 04/19/17 05:51 Creatinine 1.35 mg/dL (0.70-1.30) H 04/19/17 05:51 Est GFR (Non-Af Amer) 50 (> 60) L 04/19/17 05:51 BUN/Creatinine Ratio 35 (6-26) H 04/19/17 05:51 Glucose 163 mg/dL (70-105) H 04/19/17 05:51 POC Glucose 91 (58-89) H 04/18/17 08:41 Calculated Osmolality 308 (280-300) H 04/19/17 05:51 Albumin 3.3 g/dL (3.5-5.7) L 04/17/17 17:26 Globulin 3.9 g/dL (2.4-3.5) H 04/17/17 17:26 Albumin/Globulin Ratio 0.8 (1.1-2.2) L 04/17/17 17:26 - VTE Documentation of Mechanical Device: Venous foot pump, device Consult Discharge Plan - Plan Referrals: Dagoberto Blunt MD [Primary Care Provider] -
--- NOTE | 2017-04-19 19:02 | Internal Med Progress Note ---
Date of Encounter: 04/19/17 Time of Encounter: 11:00 - Assessment and plan (1) Septic arthritis Current Visit: Yes Status: Acute Assessment and plan: Orthopedics following status post right knee I&D Cultures positive for Klebsiella Will continue IV antibiotics with cefazolin Awaiting placement for intermediate facility Qualifiers: Septic arthritis location: knee Septic arthritis organism: due to other bacteria Laterality: right Qualified Code(s): M00.861 - Arthritis due to other bacteria, right knee (2) CKD (chronic kidney disease) Current Visit: Yes Status: Acute Assessment and plan: Stable; continue to monitor Qualifiers: Chronic kidney disease stage: stage 3 (moderate) Qualified Code(s): N18.3 - Chronic kidney disease, stage 3 (moderate) - Subjective Interval history: Patient awaiting ECF placement after right knee irrigation and debridement due to septic arthritis - Constitutional Vitals: Temp Pulse Resp BP Pulse Ox 97.7 F 66 16 123/57 94 04/19/17 15:31 04/19/17 15:31 04/19/17 15:31 04/19/17 15:31 04/19/17 15:31 General appearance: Present: no acute distress - Respiratory Respiratory exam: Present: CTAB. Absent: accessory muscle use, rales, rhonchi, wheezes - Cardiovascular Cardiovascular exam: Present: RRR, +S1, +S2. Absent: diastolic murmur, gallop, rubs, systolic murmur - Other Additional findings: Right lower leg wrapped in Jesus bandage Internal Medicine: Result - Labs CBC & Chem 7: 04/19/17 05:51 04/19/17 05:51 Labs: Short CBC 04/19/17 Range/Units 05:51 WBC 16.9 H (4.3-11.1) K/mcL Hgb 10.1 L (12.9-16.9) g/dL Hct 32.8 L (37.5-50.1) % Plt Count 418 H (140-400) K/mcL Neutrophils # 15.3 H (1.6-8.9) K/mcL BMP 04/19/17 05:51 Sodium 141 Potassium 4.0 Chloride 99 Carbon Dioxide 29 BUN 47 H Creatinine 1.35 H Glucose 163 H Calcium 9.1 - ABG Interpretation ABG results: PT/INR, D-dimer PT 33.3 Seconds (9.4-12.1) H 04/19/17 05:51 - VTE Documentation of Mechanical Device: Venous foot pump, device Consult Discharge Plan - Plan Referrals: Dagoberto Blunt MD [Primary Care Provider] -
[2017-04-20] MEDS: ceFAZolin 1,000 MG in Water for inj. (sterile) 20 ML 10 ML IVP SCH ×3 (01:01→15:02)
[2017-04-20] MEDS: *HR* HYDROcodone/Acet 5/325 mg TABLET PO PRN ×2 (04:39→15:01)
[2017-04-20] MEDS: Metoprolol XL (24 HR) Succ 50 MG TAB.ER.24H PO SCH (08:39)
[2017-04-20] MEDS: NIFEdipine XL (24 HR) 60 MG TAB.ER.24 PO SCH (08:39)
[2017-04-20] MEDS: Aspirin 81 MG TAB.CHEW PO SCH (08:39)
[2017-04-20] MEDS: Isosorbide MONOnitrate (24 HR) 30 MG TAB.ER.24H PO SCH (08:39)
[2017-04-20] MEDS: cloNIDine HCl 0.1 MG TABLET PO SCH (08:39)
[2017-04-20] MEDS: MORPHINE SUL Oral CONC 10 MG/0.5 ML ORAL.SYG SL PRN (08:42)
--- NOTE | 2017-04-20 08:44 | Orthopedics Progress Note ---
Date of Encounter: 04/20/17 Time of Encounter: 08:42 - Assessment and Plan (1) Septic arthritis Current Visit: Yes Status: Acute Qualifiers: Septic arthritis location: knee Septic arthritis organism: due to other bacteria Laterality: right Qualified Code(s): M00.861 - Arthritis due to other bacteria, right knee Subjective Interval history: No overnight issues. Denies f/c/ns. Knee pain present but controlled AFVSS Ctx +Klebsiella GEN; NAD, AAOx3 RLE: Op site dressing in place, c/d/i DNVI s/s/t/sp/dp +EHL/PF/DF POD#2 s/p R knee I&D with polyexchange for septic arthritis -WBAT with PT -Continue antibiotics as per medicine -No plans for further surgery, ok to d/c when placement arranged Objective Vital signs: Vital Signs Temp Pulse Resp BP Pulse Ox 04/20/17 06:28 98.7 F 84 16 114/68 95 04/20/17 03:10 98.5 F 88 17 111/65 93 04/19/17 23:57 97.7 F 87 17 132/73 94 04/19/17 19:38 98.3 F 84 17 109/69 94 04/19/17 15:31 97.7 F 66 16 123/57 94 04/19/17 11:39 97.9 F 77 18 111/74 93 Intake and Output 04/19/17 04/20/17 04/20/17 23:59 07:59 15:59 Intake Total Output Total 150 / 150 Balance -150 / -150 Intake: IV Fluids Ancef 1,000 MG In Water for inj . (sterile) 10 ML @ 200 mls/hr IVP Q8HR SOFYA Rx#:[id number] Output: Urine 150 / 150 Other: # Urine Diapers 1 - Labs CBC & BMP: 04/19/17 05:51 04/19/17 05:51 Labs: Abnormal lab results WBC 16.9 K/mcL (4.3-11.1) H 04/19/17 05:51 RBC 3.71 M/mcL (4.19-5.50) L 04/19/17 05:51 Hgb 10.1 g/dL (12.9-16.9) L 04/19/17 05:51 Hct 32.8 % (37.5-50.1) L 04/19/17 05:51 MCH 27.2 pg (28.0-33.3) L 04/19/17 05:51 MCHC 30.8 g/dL (31.6-35.5) L 04/19/17 05:51 RDW 16.3 % (11.5-14.5) H 04/19/17 05:51 Plt Count 418 K/mcL (140-400) H 04/19/17 05:51 Neutrophils # 15.3 K/mcL (1.6-8.9) H 04/19/17 05:51 PT 33.3 Seconds (9.4-12.1) H 04/19/17 05:51 BUN 47 mg/dL (8-23) H 04/19/17 05:51 Creatinine 1.35 mg/dL (0.70-1.30) H 04/19/17 05:51 Est GFR (Non-Af Amer) 50 (> 60) L 04/19/17 05:51 BUN/Creatinine Ratio 35 (6-26) H 04/19/17 05:51 Glucose 163 mg/dL (70-105) H 04/19/17 05:51 POC Glucose 91 (58-89) H 04/18/17 08:41 Calculated Osmolality 308 (280-300) H 04/19/17 05:51 Albumin 3.3 g/dL (3.5-5.7) L 04/17/17 17:26 Globulin 3.9 g/dL (2.4-3.5) H 04/17/17 17:26 Albumin/Globulin Ratio 0.8 (1.1-2.2) L 04/17/17 17:26 - VTE Documentation of Mechanical Device: Intermittent pneumatic compression device Consult Discharge Plan - Plan Referrals: Dagoberto Blunt MD [Primary Care Provider] -
--- NOTE | 2017-04-20 11:10 | Infectious Disease Consult ---
Date of Encounter: 04/20/17 Time of Encounter: 10:00 Assessment and Plan (1) Infection of prosthetic right knee joint Status: Acute Assessment and plan: late onset causative organism is Klebsiella pneumoniae R [place]mp s/[place] [address] with 93% N s/p I&D and polyexchange on 04/18 currently on cefazolin june d/c home on oral cipro 250 bid x 4-6 weeks weekly cbc bmp esr crp follow up with ID clinic in 2 weeks. Qualifiers: Encounter type: initial encounter Qualified Code(s): T84.53XA - Infection and inflammatory reaction due to internal right knee prosthesis, initial encounter (2) Septic joint of right knee joint Status: Acute Assessment and plan: - The patient had right total knee arthroplasty about 9 years ago at [facility]. - The patient fell about a week ago on his right knee and has noted pain and swelling. No open cuts. He went to see his primary care physician and underwent a knee tap on 04/15. - Synovial Cultures came back positive for Klebsiella pneumonia. 04/15/17, broad sensitivities, resistant to ampicillin - Continued on Ancef 1000 mg every 8 hours since admission. (Day#4) recommend 7 days parental antibiotics followed by 21 days oral antibiotic coverage. Qualifiers: Septic arthritis organism: due to other bacteria Qualified Code(s): M00.861 - Arthritis due to other bacteria, right knee (3) Leukocytosis Status: Acute Assessment and plan: Current WBC 16.9, post orthopedic operation 04/18/2017 and undergoing treatment for septic knee joint with involved hardware. - Vitals stable, no signs of active infection, patient clinically improving. - Suspect elevation secondary to surgical intervention and undergoing treatment for septic joint. - Continue to monitor daily. Qualifiers: Leukocytosis type: unspecified Qualified Code(s): D72.829 - Elevated white blood cell count, unspecified (4) Stage III chronic kidney disease Status: Chronic Assessment and plan: 86-year-old male with multiple health problems and known chronic kidney disease stage III, kidney function around baseline. -Creatinine clearance 37 - Renally dose antibiotics and avoid nephrotoxic medications Infectious Disease HPI - Data of Consult Consult date: 04/20/17 Requesting Physician: You Vasquez Primary Care Provider: Dagoberto Blutn MD - Consult Narrative Reason for consult: Septic knee antibiotic coverage History of present illness: Mr. St is a 86 year old male with Hx of CHF, HTN, CKD stage III, s/p AVR, Hx of PE, CAD s/p CABG. s/p PPM, present to ER after he was told to come in for concerns regarding septic right knee. Mr. St fell about 1.5 weeks ago on his right knee and has noted pain and swelling. No open cuts on or around the right knee but he does have small abrasions on his left LE. He states that he fell after catching the corner of his leaving on a door handle and losing his balance while walking with his walker. He notes that he was having difficulty with pain and discomfort in his right knee starting roughly 2 weeks prior to this event. He had difficulty bending at the right knee and lifting at to get over steps or other objects. He did not notice any erythema or edema and denies any fevers, chills, nausea, vomiting, headache, blurry vision, chest pain , shortness breath, abdominal pain, urinary symptoms, or neurological symptoms preceding or after this event. He continued to have pain in the right knee that was not resolving and he went to see his primary care physician and underwent a knee tap on 04/15. Synovial cultures came back positive for Klebsiella pneumonia and he was called by his PCP to come to the hospital for further treatment. Upon evaluation in emergency department orthopedics was consult in for evaluation. He was initially given ceftriaxone and the orthopedic surgeon recommended switching to Ancef. Blood cultures were collected on 04/17/2017 and have since had no growth. Initial labs demonstrated WBC 15.8, hemoglobin 10.3, hematocrit 33.2, platelet 385, neutrophil #14.8 lymphocytes 0.4, sodium 139, potassium 4.2, chloride 101, bicarbonate 30, BUN 57, creatinine 1.43 ( around baseline) GFR 47, glucose 1:15, lactic acid 1.8. After evaluation by orthopedic surgery he was recommended right knee irrigation and debridement with poly-exchange which was completed on 04/18/2017 without complication. Throughout his inpatient stay his vitals have remained stable without any findings of concern. CC: Yuo Vasquez Past Med Surg Social Fam HX - Past Medical History Medical history: CHF, coronary artery disease, hyperlipidemia, hypertension, pulmonary embolus, valvular heart disease Psychiatric history: no psych history - Past Surgical History Surgical History: cholecystectomy, coronary bypass (CABG), heart valve replacement - Social History Smoking Status: Never smoker Smokeless Tobacco Status: No Alcohol use: none Drug use: none - Family History Father Family Member Ethnicity: Non- Living Status: Hx Family Cardiac Disorders: Yes (DVT) Sister Family Member Ethnicity: Non- Living Status: Still Living Hx Family Cardiac Disorders: Yes (Stroke) Mother Adopted: No Family Member Ethnicity: Non- Living Status: Hx Family Cardiac Disorders: Yes Hx Family Respiratory Disorders: No Hx Family Cancer: Yes (Lung) Hx Family GI Disorders: No Hx Family Endocrine Disorder: Yes Hx Family Neuromuscular Disorders: No Hx Family Neurologic Disorders: No Hx Family HEENT Disorders: No Hx Family Autoimmune Disorders: No Infectious Disease-CN:Meds Aspirin 81 mg PO DAILY 11/04/14 [History] Atorvastatin [Lipitor] 40 mg PO HS 11/04/14 [History] Cholecalciferol (Vitamin D3) [Vitamin D3] 1,000 unit PO DAILY 11/04/14 [History] Metoprolol XL (24 HR) Succ [Toprol XL] 100 mg PO DAILY 11/04/14 [History] Acetaminophen [Tylenol] 500 mg PO Q6HR PRN #10 tablet 06/14/16 [Rx] Sertraline [Zoloft] 25 mg PO DAILY 01/27/17 [History] Tamsulosin [Flomax] 0.4 mg PO DAILY 01/27/17 [History] traZODone [TraZODone] 50 mg PO HS 01/27/17 [History] cloNIDine HCl [CloNIDine HCl] 0.1 mg PO TID 03/12/17 [History] Ferrous Sulfate 325 mg PO DAILY 03/13/17 [History] Omeprazole [PriLOSEC] 40 mg PO DAILY 03/13/17 [History] Bumetanide [Bumex] 1.5 mg PO DAILY 04/18/17 [History] Fluticasone Propionate Nasal [Flonase] 1 spr NS DAILY 04/18/17 [History] Isosorbide MONOnitrate (24 HR) [Imdur] 60 mg PO DAILY 04/18/17 [History] Lisinopril [Zestril] 10 mg PO DAILY 04/18/17 [History] NIFEdipine XL (24 HR) [Procardia XL] 30 mg PO DAILY 04/18/17 [History] Potassium Chloride [K-Tab ER] 20 meq PO BID 04/18/17 [History] Warfarin Sodium [Warfarin Sodium] 1.25 mg PO DAILY 04/18/17 [History] 3 Allergy/AdvReac Type Severity Reaction Status Date / Time No Known Allergies Allergy Verified 04/18/17 09:56 Review of systems: 10 point ROS done, negative other for what's mentioned in the HPI - Constitutional Constitutional: Absent: anorexia, chills, excessive sweating, fever(s), frequent falls, headache(s) - EENT Eyes: Present: as per HPI - Cardiovascular Cardiovascular: Present: irregular heart rhythm. Absent: chest pain, dyspnea, edema, leg edema, leg ulcers, rapid heart rate, syncope - Respiratory Respiratory: Absent: cough, dyspnea, excessive phlegm production, change in phlegm color, pain with cough - Gastrointestinal Gastrointestinal: Absent: abdominal pain, change in bowel habits, constipation, diarrhea, nausea, vomiting - Genitourinary Additional comments: No burning with urination or blood in his urine. - Musculoskeletal Musculoskeletal: Present: as per HPI - Neurological Neurological: Absent: focal weakness - Psychiatric Psychiatric: Present: as per HPI Exam - Constitutional Vitals: Temp Pulse Resp BP Pulse Ox 98.7 F 84 16 114/68 95 04/20/17 06:28 04/20/17 06:28 04/20/17 06:28 04/20/17 06:28 04/20/17 06:28 Exam: General: Patient alert, awake, oriented 3, interactive, in no acute distress HEENT: Normocephalic, atraumatic, eyes: adebayo EOMI, sclera non icteric mouth, no oral lesions, no thrush Chest: Symmetric bilateral correlating with respiratory effort, effort nonlabored. Cardiac: irregularly irregular heart rate and rhythm. Respiratory: Clear to auscultation all lung rodriguez Abdomen: Soft, nontender, positive bowel sounds, no palpable masses appreciated on examination Extremities: Symmetric bilateral, right knee demonstrates postoperative laceration healing well without signs of erythema edema or discharge. No finding of discharge, patient denies any discomfort. Bilateral lower extremities have signs of chronic venous stasis Neurologic: No focal deficits appreciated on examination. skin: no rash . Infectious Disease CN: Results - Labs CBC & Chem 7: 04/19/17 05:51 04/19/17 05:51 - VTE Documentation of Mechanical Device: Intermittent pneumatic compression device Consult Discharge Plan - Plan Referrals: Dagoberto Blunt MD [Primary Care Provider] - - Attending Attestation I examined this patient and my medical decision-making was reviewed with the Resident Physician. I agree with the documented findings, disposition and treatment plan as described except to the extent set forth below. This is an addendum to original report dictated by resident physician. Please refer to residents note for full details. Patient is an 86-year-old gentleman who was admitted to [facility] on April 17 with right knee pain, we are consulted on April 20 for septic arthritis of the right knee. [place] with past medical history mentioned below including CHF, chronic kidney disease stage III, status post aVR, coronary artery disease status post CABG in the past with a pacemaker and history of PE underwent a right total knee arthroplasty 9 years ago at [facility]. Patient has been doing well with his prosthetic knee until about a week prior to admission where he had a fall on his right knee. After the fall he had pain and swelling. There was no open cuts no scrapes. Patient was evaluated by his primary care doctor on April 15 where he had an arthrocentesis of the knee. The fluid revealed 59,000 nucleated cells with 96% neutrophils. Cultures came back positive for Klebsiella pneumoniae that was pansensitive with the exception of ampicillin. Since admission, the patient has been afebrile. Heart rate has been within normal limits. Labs revealed WBC of 15.8 with 94% neutrophils. A BUN of 57, creatinine of 1.43 and a lactic acid of 1.8. Blood cultures were obtained and are no growth to date. Patient was taken to surgery on April 18 by orthopedics where he had right knee I&D with polyexchange. No Intra-Op cultures were sent. Op note is pending. Patient has been on Ancef. We were asked to evaluate the patient and make further recommendations. Assessment/plan: 1- Late-onset prosthetic joint infection a. Joint placed about 8 years ago b. s/p fall one week prior to admission c. causative organism Klebsiella pneumoniae (pansensitive with exception of ampicillin) d. s/p I&D and polyexchange on 04/18 2- CKD CrCl almost 40 d/c cefazolin start ciprofloxacin 250mg po bid duration of treatment 4-6 weeks weekly cbc, bmp, ESR, CrP follow up with us in clinic in 2 weeks.
[2017-04-20 13:50] VITALS: BP 119/65
--- NOTE | 2017-04-20 16:40 | Discharge Summary ---
- NOTES TO OUTPATIENT PROVIDER Notes to Outpatient Provider: Follow-up with infectious disease and to continue Cipro for 4-6 weeks. Patient will also need weekly CBC, BMP, ESR and CRP until seen by infectious disease in 2 weeks Date of Encounter: 04/20/17 Time of Encounter: 11:00 - Discharge Diagnosis (1) Septic arthritis Priority: Primary Status: Acute Qualifiers: Septic arthritis location: knee Septic arthritis organism: due to other bacteria Laterality: right Qualified Code(s): M00.861 - Arthritis due to other bacteria, right knee (2) CKD (chronic kidney disease) Priority: Secondary Status: Acute Qualifiers: Chronic kidney disease stage: stage 3 (moderate) Qualified Code(s): N18.3 - Chronic kidney disease, stage 3 (moderate) Hospital course: Patient is a 86-year-old male with past medical history significant for CHF, HTN , CKD stage III, s/p AVR, Hx of PE, CAD s/p CABG. s/p PPM, who presented to the ER on 04/17/17 due to right knee pain. The patient had right total knee arthroplasty about 9 years ago at [facility]. He does not know who his orthopedic doctor is anymore. The patient fell about a week ago on his right knee and has noted pain and swelling. No open cuts. He went to see his primary care physician and underwent a knee tap on . Cultures came back positive for Klebsiella pneumonia. Patient was notified by primary provider to go to the ER for concerns for septic joint. In the ER, laboratory workup significant for WBC count of 15.8, creatinine consistent with baseline. Orthopedics were contacted at the ER and will see the patient. The patient was given ceftriaxone and orthopedics recommended Ancef. She was admitted to medical surgical floor for further medical management. During patients hospital stay orthopedics with recommendations for incision and drainage which was done. Infectious disease was also consulted with recommendations for patient to continue Cipro as outpatient for 4-6 weeks and to follow-up with infectious disease as an outpatient. Patient is medically stable to be discharged to the [facility] facility for strengthening conditioning and to continue to complete antibiotic therapy. - Time Spent with Patient Total time spent providing and/or coordinating discharge services: Less than 30 minutes - Discharge Medications Prescriptions: Ciprofloxacin HCl [Cipro] 250 mg PO BID 30 Days #60 tablet HYDROcodone/Acet 5/325 mg [[place] 5-325 mg] 1 tab PO Q4H PRN 3 Days #20 tablet PRN Reason: Mild To Moderate Pain Home Medications: Aspirin 81 mg PO DAILY 11/04/14 [History] Atorvastatin [Lipitor] 40 mg PO HS 11/04/14 [History] Cholecalciferol (Vitamin D3) [Vitamin D3] 1,000 unit PO DAILY 11/04/14 [History] Metoprolol XL (24 HR) Succ [Toprol XL] 100 mg PO DAILY 11/04/14 [History] Acetaminophen [Tylenol] 500 mg PO Q6HR PRN #10 tablet 06/14/16 [Rx] Sertraline [Zoloft] 25 mg PO DAILY 01/27/17 [History] Tamsulosin [Flomax] 0.4 mg PO DAILY 01/27/17 [History] traZODone [TraZODone] 50 mg PO HS 01/27/17 [History] cloNIDine HCl [CloNIDine HCl] 0.1 mg PO TID 03/12/17 [History] Ferrous Sulfate 325 mg PO DAILY 03/13/17 [History] Omeprazole [PriLOSEC] 40 mg PO DAILY 03/13/17 [History] Bumetanide [Bumex] 1.5 mg PO DAILY 04/18/17 [History] Fluticasone Propionate Nasal [Flonase] 1 spr NS DAILY 04/18/17 [History] Isosorbide MONOnitrate (24 HR) [Imdur] 60 mg PO DAILY 04/18/17 [History] Lisinopril [Zestril] 10 mg PO DAILY 04/18/17 [History] NIFEdipine XL (24 HR) [Procardia XL] 30 mg PO DAILY 04/18/17 [History] Potassium Chloride [K-Tab ER] 20 meq PO BID 04/18/17 [History] Warfarin Sodium [Warfarin Sodium] 1.25 mg PO DAILY 04/18/17 [History] Ciprofloxacin HCl [Cipro] 250 mg PO BID 30 Days #60 tablet 04/20/17 [Rx] HYDROcodone/Acet 5/325 mg [[place] 5-325 mg] 1 tab PO Q4H PRN 3 Days #20 tablet [Rx] Allergies/Adverse Reactions: 3 Allergy/AdvReac Type Severity Reaction Status Date / Time No Known Allergies Allergy Verified 04/18/17 09:56 Date of admission: 04/17/17 19:40 Primary care physician: Dagoberto Blunt MD Consults: 04/18/17 20:13 Consult to Physical Therapy [CONS] Routine Comment: Evaluate, develop and implement POC Reason for Consult: s/p R knee I&D polyexchange Does patient have active BEDREST order?: No Is patient medically & hemodynamically stable?: Yes 04/19/17 09:37 Consult to Occupational Therapy [CONS] Routine Comment: Evaluate, develop and implement POC Reason for Consult: EVAL AND TREAT Does patient have active BEDREST order?: No Is patient medically & hemodynamically stable?: Yes 04/19/17 09:39 Consult to [employer]er [CONS] Routine Reason for SW Consult: DISCHARGE PLANNING 04/20/17 09:42 Consult to Infectious Diseases [CONS] Routine Consulting Provider: Infectious Disease [place] Reason for Consult: sepitic joint Call Completed: No - Constitutional Vitals: Temp Pulse Resp BP Pulse Ox 98.3 F 89 16 119/65 96 04/20/17 10:36 04/20/17 10:36 04/20/17 10:36 04/20/17 10:36 04/20/17 10:36 General appearance: Present: no acute distress - Respiratory Respiratory exam: Present: CTAB. Absent: accessory muscle use, rales, rhonchi, wheezes - Cardiovascular Cardiovascular exam: Present: RRR, +S1, +S2. Absent: diastolic murmur, gallop, rubs, systolic murmur - Patient Status Disposition: Transfer SNF Condition: Good - Discharge Instructions Follow Up With: Dagoberto Blunt MD [Primary Care Provider] - - VTE Documentation of Mechanical Device: Intermittent pneumatic compression device
--- NOTE | 2017-04-20 16:54 | Physician Discharge Referral ---
ExtendedCare Referral Info Institutional Level of Care: Skilled - Diagnosis (1) Septic arthritis Priority: Primary Status: Acute (2) CKD (chronic kidney disease) Priority: Secondary Status: Acute - Transfer Medications Prescriptions: Ciprofloxacin HCl [Cipro] 250 mg PO BID 30 Days #60 tablet HYDROcodone/Acet 5/325 mg [[place] 5-325 mg] 1 tab PO Q4H PRN 3 Days #20 tablet PRN Reason: Mild To Moderate Pain Home Medications: Aspirin 81 mg PO DAILY 11/04/14 [History] Atorvastatin [Lipitor] 40 mg PO HS 11/04/14 [History] Cholecalciferol (Vitamin D3) [Vitamin D3] 1,000 unit PO DAILY 11/04/14 [History] Metoprolol XL (24 HR) Succ [Toprol XL] 100 mg PO DAILY 11/04/14 [History] Acetaminophen [Tylenol] 500 mg PO Q6HR PRN #10 tablet 06/14/16 [Rx] Sertraline [Zoloft] 25 mg PO DAILY 01/27/17 [History] Tamsulosin [Flomax] 0.4 mg PO DAILY 01/27/17 [History] traZODone [TraZODone] 50 mg PO HS 01/27/17 [History] cloNIDine HCl [CloNIDine HCl] 0.1 mg PO TID 03/12/17 [History] Ferrous Sulfate 325 mg PO DAILY 03/13/17 [History] Omeprazole [PriLOSEC] 40 mg PO DAILY 03/13/17 [History] Bumetanide [Bumex] 1.5 mg PO DAILY 04/18/17 [History] Fluticasone Propionate Nasal [Flonase] 1 spr NS DAILY 04/18/17 [History] Isosorbide MONOnitrate (24 HR) [Imdur] 60 mg PO DAILY 04/18/17 [History] Lisinopril [Zestril] 10 mg PO DAILY 04/18/17 [History] NIFEdipine XL (24 HR) [Procardia XL] 30 mg PO DAILY 04/18/17 [History] Potassium Chloride [K-Tab ER] 20 meq PO BID 04/18/17 [History] Warfarin Sodium [Warfarin Sodium] 1.25 mg PO DAILY 04/18/17 [History] Ciprofloxacin HCl [Cipro] 250 mg PO BID 30 Days #60 tablet 04/20/17 [Rx] HYDROcodone/Acet 5/325 mg [[place] 5-325 mg] 1 tab PO Q4H PRN 3 Days #20 tablet [Rx] Allergies/Adverse Reactions: 3 Allergy/AdvReac Type Severity Reaction Status Date / Time No Known Allergies Allergy Verified 04/18/17 09:56 - Respiratory Orders Smoking Cessation: Smoking cessation has been advised. For more information, call the [place] Tobacco Quit Line at 6-485-RBDSNOW. CERTIFICATION: I certify that the transfer of the above named patient to an Extended Care Facility is necessary for the continuing treatment of the diagnosis listed. The above information is true and accurate reflection of patient's current condition. Confidential - Redisclosure prohibited without a patient's written consent.
[2017-04-20 18:41] LABS: Prothrombin Time 33.5 Seconds (9.4-12.1)
== END 2017-04-20 19:14 | DRG 486 ==
LOC: 3ANU 16:26 → EMEROO 16:26 → 3NENU 18:31 → SUATTDRO 19:40
PROVIDERS: ADMIT Internal Medicine; ATTEND Hospitalist
PROC: ORTPOLY (2017-04-18 17:30)